=== PATIENT | female | born 1960 | race African-American/Black ===

== ENCOUNTER → 2016-05-12 | Outpatient (CLI) | payer OTHER ==
[2016-05-12 11:20] LABS: Appearance,Urine Clear (Clear); Bilirubin,Urine Negative (Negative); Glucose,Urine (UA) Negative (Negative); Ketones,Urine Negative (Negative); Leukocyte Esterase,Urine Negative (Negative); Nitrite,Urine Negative (Negative); Protein,Urine Negative (Negative); Specific Gravity,Urine 1.019 (1.001-1.035); UA Billing (MACRO vs. MICRO) CHEM; Urobilinogen,Urine <2.0 mg/dL (<2.0)
[2016-05-12 11:29] LABS: Basophils % (A) 1 %; CH 31.6; Eosinophils # (A) 0.1 k/uL (0-0.7); Eosinophils % (A) 1 %; HCT 42.7 % (34.0-46.0); HDW 2.53; Luc # (Auto) 0.05; Luc % (Auto) 1; Lymphocytes # (A) 1.2 k/uL (1.0-4.8); Lymphocytes % (A) 34 %; MCH 31.9 pg (25.0-35.0); MCHC 35.1 g/dL (31.0-37.0); MCV 90.8 fL (80.0-100.0); Mean Platelet Volume 7.6; Monocytes # (A) 0.2 k/uL (0-1.0); Monocytes % (A) 7 %; Neutrophils % (A) 56 %; RDW 12.6 % (11.5-15.5); WBC 3.6 k/uL (3.8-10.6); WBC (Perox) 3.45
[2016-05-12 11:31] LABS: ALT 34 U/L (9-52); AST 26 U/L (14-36); Alkaline Phosphatase 80 U/L (38-126); Anion Gap 12 mmol/L; Blood Urea Nitrogen 17 mg/dL (7-17); Calcium 9.6 mg/dL (8.4-10.2); Carbon Dioxide 26 mmol/L (22-30); Chloride 106 mmol/L (98-107); Creatine Kinase 113 U/L (30-135); Glucose 81 mg/dL (74-99); Non-African American GFR(MDRD) 54 (>60 ml/min/1.73 sqM); Potassium 4.3 mmol/L (3.5-5.1); Sodium 144 mmol/L (137-145); Total Bilirubin 0.5 mg/dL (0.2-1.3); Total Protein 8.2 g/dL (6.3-8.2); Uric Acid 4.8 mg/dL (3.7-7.4)
[2016-05-12 12:00] LABS: Hepatitis B Surface Ag Index 0.07
[2016-05-12 12:22] LABS: Hepatitis C Virus IgG Ab Reactive (Negative)
[2016-05-12 12:36] LABS: C Reactive Protein 5.2 mg/L (<10.0)
[2016-05-12 12:40] LABS: Rheumatoid Factor, Qnt <9 IU/mL (<12)
[2016-05-12 12:45] LABS: Erythrocyte Sedimentation Rate 16 mm/hr (0-20)
[2016-05-12 16:36] LABS: ANA w/Reflex to Titer NEGATIVE (NEGATIVE)
[2016-05-13 05:09] LABS: Cyclic Citrullinated Pep IgG 6 UNITS (<20)
[2016-05-13 07:19] LABS: Aldolase 4.2 U/L (1.2-7.6)
[2016-05-13 11:26] LABS: HLA B27 NEGATIVE; HLA B27 Comment SEEBELOW
[2016-05-15 02:59] LABS: Cardiolipin Ab IgG <9.0 GPL (<15); Cardiolipin Ab IgM 24.8 MPL (<12.5)
[2016-05-15 06:47] LABS: Complement Total (CH50) 131 CAE (54-144)
[2016-05-15 08:24] LABS: Hepatits C Virus RNA, Quant <12 IU/mL (<12); LOG HCV IU/mL <1.08 (<1.08)
[2016-05-15 12:05] LABS: Free Kappa Lt Chain Qnt, Serum 1.73 mg/dL (0.33 - 1.94); Kappa/Lambda Light Chain Ratio 0.78 (0.26 - 1.65)
[2016-05-15 13:42] LABS: Scleroderma 70 Antibody 6 UNITS (<20)
[2016-05-15 14:37] LABS: C-ANCA <1:20 Titer (<1:20); P-ANCA <1:20 Titer (<1:20)
[2016-05-18 10:48] LABS: Mis test requested (Blood) 14-3-3 eta Protein
== END | disposition home or self-care (01) ==
LOC: LABWHC1 10:16
PROVIDERS: ATTEND Internal Medicine Rheumatology
DX: R76.8 Other specified abnormal immunological findings in serum (principal); Z86.19 Personal history of other infectious and parasitic diseases
CPT/HCPCS: 36415; 80053; 81003; 82085; 82164; 82306; 82550; 83520; 83883; 84165; 84439; 84443; 84550; 85025; 85613; 85652; 85730; 86038; 86140; 86147; 86160; 86162; 86200; 86225; 86235; 86255; 86334; 86431; 86803; 86812; 87340; 87522

== ENCOUNTER → 2016-08-15 | Outpatient (CLI) | payer OTHER ==
--- NOTE | 2016-08-15 09:16 | MR ---
EXAMINATION TYPE: MR lumbar spine wo con DATE OF EXAM: 08/15/2016 8:55 AM COMPARISON: NONE HISTORY: meralgia paresthetica rt lower limb TECHNIQUE: T1 and T2 axial and sagittal images of the lumbar spine are submitted. FINDINGS: There is no abnormal signal seen within the visualized spinal cord or paraspinal soft tissu es. Heterogeneous marrow signal nonspecific but most suggestive of osteopenia. Large gallstone suspec michelet. At L1-2 there is minimal left paracentral disc bulging. No canal stenosis or foraminal encroachment. At L2-3 there is mild facet arthropathy but no disc herniation or canal stenosis. No foraminal encroa chment. At L3-4 there is moderate facet arthropathy and ligamentum flavum hypertrophy. No foraminal encroachm ent, disc herniation, or canal stenosis. At L4-5 there is mild degenerative disc disease with mild hypertrophic change of the ligamentum flavu m and moderate hypertrophic change of the left facet. No focal herniation or canal stenosis. Mild nando ateral foraminal encroachment. No nerve root impingement. At L5-S1 there is moderate degenerative disc disease with mild facet arthropathy but no evidence of f ocal herniation, canal stenosis or neural foraminal encroachment. IMPRESSION: 1. Cholelithiasis 2. Multilevel mild degenerative disc disease and multilevel facet arthropathy with no evidence of dis c herniation or canal stenosis. Multilevel mild foraminal encroachment.
== END | disposition home or self-care (01) ==
LOC: RADMRIMAIN 08:01
PROVIDERS: ATTEND Psychiatry & Neurology Neurology
DX: M51.37 Other intervertebral disc degeneration, lumbosacral region (principal); M46.87 Other specified inflammatory spondylopathies, lumbosacral region
CPT/HCPCS: 72148

== ENCOUNTER → 2016-10-11 | Outpatient (CLI) | payer OTHER ==
--- NOTE | 2016-10-13 12:42 | MM ---
Reason for exam: screening (asymptomatic). Last mammogram was performed 1 year and 3 months ago. History: Patient is postmenopausal. Physical Findings: A clinical breast exam by your physician is recommended on an annual basis and results should be correlated with mammographic findings. MG Screening Mammo w CAD Bilateral CC and MLO view(s) were taken. Prior study comparison: July 06, 2015, bilateral MG screening mammo w CAD. The breast tissue is heterogeneously dense. This may lower the sensitivity of mammography. Finding: There is equal, indistinct architectural distortion located 2 cm from the nipple in the 12 o'clock position of the right breast. New finding since July 06, 2015. ASSESSMENT: Incomplete: need additional imaging evaluation, BI-RAD 0 RECOMMENDATION: Special view mammogram of the right breast. If lesion persists on supplemental views, image directed ultrasound is recommended. [facility] will attempt to contact patient to return for supplemental views and ultrasound if indicated.
== END | disposition home or self-care (01) ==
LOC: RADMAMWWP 07:21
PROVIDERS: ATTEND Family Medicine
DX: Z12.31 Encounter for screening mammogram for malignant neoplasm of breast (principal)

== ENCOUNTER → 2016-10-25 | Outpatient (CLI) | payer OTHER ==
--- NOTE | 2016-10-25 15:50 | WWHP ---
CHIEF COMPLAINT: The patient is here for her routine gynecologic exam and mammogram. HPI: This is a 56-year-old, G3, P1-0-2-1 with LMP of 2006. The patient is without gynecologic complaints and denies any postmenopausal bleeding. She did have a screening mammogram on 10/11/16 and special view of the right breast was recommended. PAST MEDICAL HISTORY: Hepatitis C, elevated cholesterol, COPD, and history of drug abuse. She currently goes to [facility] on a regular basis. MEDICATIONS: Zocor 20 mg daily, Trazodone 150 mg daily, calcium 600 mg b.i.d., QVAR inhaler b.i.d., fish oil supplement daily, multivitamin daily. ALLERGIES: No known drug allergies. PAST SURGICAL HISTORY: Laparotomy x2 for ectopic pregnancies in the past. PAST [employer] HISTORY: She has history of trichomonas and gonorrhea at age 19 and also was treated for syphilis in 2014. SOCIAL HISTORY: She quit smoking in 07/30. She also quit drinking alcohol. She has a history of cocaine and IV heroin use, but states she has been clean since attending the [facility] program. 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 She is not seeing anybody at this time and has not been sexually active for 2 years. FAMILY HISTORY: Sister has diabetes and maternal grandmother had diabetes and ovarian cancer. REVIEW OF SYSTEMS: She has gained about 19 pounds over the last year and a half and denies respiratory, cardiac or GI problems. PHYSICAL EXAM: Blood pressure 103/70, height 5 feet 8 inches, weight 182 pounds , temperature 97.6, pulse 76. This is a well developed, well nourished black female who is alert and oriented x3 in no acute distress. HEENT is within normal limits. Neck is supple without masses or thyromegaly. Chest and lungs: Clear to auscultation. Heart: Regular rage and rhythm. Breasts are without mass or discharge. Axillary exam is negative for adenopathy. Back negative for cva tenderness. Abdomen is soft, nontender without palpable masses. Pelvic exam: External genitalia reveals mild atrophy without lesions. Cervix and vaginal reveals mild atrophy without lesions. There is no evidence of prolapse. The uterus is mid-position, nongravid size and nontender. There are no palpable adnexal masses or tenderness. Rectovaginal exam is negative for mass or tenderness. Negative for occult blood. Extremities nontender. IMPRESSION: A 56-year-old menopausal female with normal gynecologic exam. PLAN: 1. PAP Smear was deferred since she had normal one last year. 2. Self breast examination was discussed. 3. Follow up mammogram was done today. 4. Osteoporosis prevention was discussed. 5. I have recommended screening colonoscopy and she states she is planning to do this through Dr. Burch, who has also recommended this be done. 6. She will return in one year. MONTY
== END ==
LOC: WWCWWP 08:21
PROVIDERS: ATTEND Obstetrics & Gynecology
DX: Z01.419 Encounter for gynecological examination (general) (routine) without abnormal findings (principal)

== ENCOUNTER → 2016-10-25 | Outpatient (CLI) | payer OTHER ==
--- NOTE | 2016-10-25 08:22 | MM ---
Reason for exam: additional evaluation requested from abnormal screening. Last mammogram was performed less than 1 month ago. History: Patient is postmenopausal. Physical Findings: Nurse did not find any significant physical abnormalities on exam. MG Work Up Mamm w CAD RT LM, spot compression CC, and spot compression MLO view(s) were taken of the right breast. Prior study comparison: October 11, 2016, bilateral MG screening mammo w CAD. July 06, 2015, bilateral MG screening mammo w CAD. The breast tissue is heterogeneously dense. This may lower the sensitivity of mammography. The area of asymmetric density does not persist compatible with summation shadow. These results were verbally communicated with the patient and result sheet given to the patient on 10/25/16. ASSESSMENT: Negative, BI-RAD 1 RECOMMENDATION: Return to routine screening mammogram schedule for both breasts.
== END | disposition home or self-care (01) ==
LOC: RADMAMWWP 07:20
PROVIDERS: ATTEND Family Medicine
DX: R92.8 Other abnormal and inconclusive findings on diagnostic imaging of breast (principal)

== ENCOUNTER 2016-12-11 08:17 | Day surgery (SDC) | payer OTHER ==
[2016-12-07 08:06] VITALS: BMI 27.6
[~2016-12-11 08:17] MED LIST: LACTATED RINGERS 1,000 ML IV SCH; LIDOCAINE 1% 20 ML VIAL (10MG/ML) FOR IV START INTRADERMA PRN
[2016-12-11] MEDS ORDERED: LIDOCAINE 1% INJ 10MG/ML (20 ML MDV) ONE (10:13)
[2016-12-11] MEDS ORDERED: GLYCOPYRROLATE 0.2 MG/ML 2 ML VIAL ONE (10:13)
[2016-12-11] MEDS ORDERED: PROPOFOL 10 MG/ML 20 ML VIAL IV ONE (10:13)
[2016-12-11 10:33] VITALS: RESP 16
--- NOTE | 2016-12-11 10:33 | P.PCN ---
Date of Procedure: 12/11/16 Preoperative Diagnosis: Postoperative Diagnosis: Procedure(s) Performed: Procedure: Total colonoscopy. Preoperative diagnosis: Screening for neoplasia. Postoperative diagnosis: Exam within normal limits. Preparation: HalfLytely prep. Sedation: Was provided by anesthesia. Brief clinical history: The patient is a 56-year-old female who is referred for this evaluation for screening for neoplasia age being her risk factor. There is no family history of colon cancer. The patient has no abdominal complaints bleeding or anemia. Procedure: With the patient on her left lateral decubitus position and after informed consent and adequate sedation, the perianal area was inspected and it did not show any fissures or fistulas. There were no masses felt on digital rectal examination. The Olympus CFQ 160L video colonoscope was then inserted in the rectum in the usual fashion and advanced to the cecum. The preparation was good. The mucosa appeared healthy. No polyps or tumors were seen or any obvious diverticular disease or other pathology. I retroflexed the endoscope in the rectum before the endoscope was withdrawn. The patient tolerated the procedure well. Plan: The patient was reassured. She will follow-up with you as planned. In the absence of family history of colon cancer or finding of polyps today, I recommended repeat exam in 10 years. Implants: Indications for Procedure: Operative Findings: Description of Procedure:
[2016-12-11 11:04] VITALS: BP 122/80; PULSE 68
== END 2016-12-11 11:35 | disposition home or self-care (01) ==
LOC: ORWHC2ENDO 08:17
DX: Z12.11 Encounter for screening for malignant neoplasm of colon (principal); J44.9 Chronic obstructive pulmonary disease, unspecified; E78.5 Hyperlipidemia, unspecified; B19.20 Unspecified viral hepatitis C without hepatic coma; Z79.51 Long term (current) use of inhaled steroids; Z79.899 Other long term (current) drug therapy
CPT/HCPCS: J2001; J2704; G0121

== ENCOUNTER → 2017-01-18 | Outpatient (CLI) | payer OTHER ==
--- NOTE | 2017-01-24 14:14 | P.ARTDOP ---
Arterial Doppler LOWER EXTREMITY ARTERIAL DOPPLER: DATE OF SERVICE: 01/18/2017 Reason for study: Leg pain with paresthesias. Doppler waveforms: Multiphasic bilaterally throughout. Pulse volume recording: Normal configuration. Pressure gradients: None. Ankle-brachial indices: Greater than 1 on the right and one on the left. Toe pressures: 69 on the right, 100 on the left Impression: Normal study.
== END | disposition home or self-care (01) ==
LOC: RADUSWWP 07:43
PROVIDERS: ATTEND Family Medicine
DX: I83.93 Asymptomatic varicose veins of bilateral lower extremities (principal)
CPT/HCPCS: 93923

== ENCOUNTER → 2017-05-01 | Outpatient (CLI) | payer OTHER ==
[2017-05-01 09:06] LABS: ALT 30 U/L (9-52); AST 26 U/L (14-36)
== END | disposition home or self-care (01) ==
LOC: LABWHC1 07:52
PROVIDERS: ATTEND Podiatrist Foot & Ankle Surgery
DX: K76.9 Liver disease, unspecified (principal)
CPT/HCPCS: 36415; 84450; 84460

== ENCOUNTER → 2017-06-20 | Outpatient (CLI) | payer OTHER ==
[2017-06-20 11:04] LABS: ALT 24 U/L (9-52); AST 26 U/L (14-36)
== END | disposition home or self-care (01) ==
LOC: LABWHC1 09:33
PROVIDERS: ATTEND Podiatrist Foot & Ankle Surgery
DX: K76.9 Liver disease, unspecified (principal)
CPT/HCPCS: 36415; 84450; 84460

== ENCOUNTER 2017-09-03 16:27 | Emergency (ER) | payer OTHER ==
[2017-09-03] MEDS ORDERED: IPRATROPIUM-ALBUTEROL 3 ML NEB INHALATION STA (19:23)
--- NOTE | 2017-09-03 19:36 | ED ---
Chest Pain HPI - General Chief Complaint: Chest Pain Stated Complaint: Chest Pain/Congestion Time Seen by Provider: 09/03/17 18:51 Source: patient, RN notes reviewed Mode of arrival: ambulatory Limitations: no limitations - History of Present Illness Initial Comments: This is a 57-year-old female history of COPD who presents with complaints of cough with yellow phlegm and 2 days of chest tightness is worse today with increasing pain. States the pain is 7/10 he does increase with coughing she has some shortness of breath no fevers chills or sweats he quit smoking 20 years ago. Doesn't complain originally have leg pain it gets worse in the morning she's had for quite a while is in the process of being worked up. He voices no other complaints at this time. No prior history of heart disease other is a family history. MD Complaint: chest pain, other - Related Data Home Medications Medication Instructions Recorded Confirmed Albuterol Inhaler [Ventolin Hfa 1 - 2 puff INHALATION RT-Q4H PRN 12/07/16 Inhaler] Ascorbic Acid [Vitamin C] 500 mg PO DAILY 12/07/16 09/03/17 Beclomethasone Dipropionate [Qvar 2 puff INHALATION RT-BID 12/07/16 09/03/17 40 mcg] Calcium Carbonate [Calcium] 600 mg PO DAILY 12/07/16 09/03/17 Multivitamins, Thera [Multivitamin 1 tab PO DAILY 12/07/16 09/03/17 (formulary)] Simvastatin [Zocor] 20 mg PO HS 12/07/16 09/03/17 traZODone HCL 200 mg PO HS 12/07/16 09/03/17 [place]-3 Fatty Acids/Fish Oil [Fish 1 cap PO DAILY 09/03/17 09/03/17 Oil 1,000 mg Softgel] Tolterodine Tartrate [Detrol LA] 4 mg PO DAILY 09/03/17 09/03/17 Previous Rx's Medication Instructions Recorded Amoxicillin/Potassium Clav 1 tab PO Q12HR #20 tab 09/03/17 [Augmentin 875-125 Tablet] Ibuprofen 800 mg PO Q6HR PRN #20 tablet 09/03/17 predniSONE 20 mg PO BID #10 tab 09/03/17 Allergies Allergy/AdvReac Type Severity Reaction Status Date / Time No Known Allergies Allergy Verified 09/03/17 19:25 Review of Systems ROS Statement: Those systems with pertinent positive or pertinent negative responses have been documented in the HPI. ROS Other: All systems not noted in ROS Statement are negative. EKG Findings - EKG Results: EKG: interpreted by LATHA, sinus rhythm (Sinus rhythm rate is 65. Interval 186 QRS duration 80 QT since QTC is 396/411 nonspecific T-wave configuration) Past Medical History Past Medical History: COPD, Hyperlipidemia Additional Past Medical History / Comment(s): HEPATITIS C., insomnia, History of Any Multi-Drug Resistant Organisms: None Reported Past Surgical History: Tubal Ligation Additional Past Surgical History / Comment(s): surgery for ectopic Past Anesthesia/Blood Transfusion Reactions: No Reported Reaction Past Psychological History: No Psychological Hx Reported Smoking Status: Former smoker Past Alcohol Use History: None Reported Past Drug Use History: None Reported - Past Family History Mother Family Medical History: No Reported History General Exam - General Exam Comments Initial Comments: This is a well-developed well-nourished awake alert oriented 3 female Limitations: no limitations General appearance: alert, in no apparent distress Head exam: Present: atraumatic, normocephalic, normal inspection Eye exam: Present: normal appearance, PERRL, EOMI. Absent: scleral icterus, conjunctival injection, periorbital swelling ENT exam: Present: mucous membranes dry Neck exam: Present: normal inspection. Absent: tenderness, meningismus, lymphadenopathy Respiratory exam: Present: wheezes, chest wall tenderness (Reproducible tenderness palpation along the costal chondral margin.), decreased breath sounds. Absent: respiratory distress, rales, rhonchi, stridor Cardiovascular Exam: Present: regular rate, normal rhythm, normal heart sounds. Absent: systolic murmur, diastolic murmur, rubs, gallop, clicks GI/Abdominal exam: Present: soft, normal bowel sounds. Absent: distended, tenderness, guarding, rebound, rigid Extremities exam: Present: normal inspection, full ROM, normal capillary refill. Absent: tenderness, pedal edema, joint swelling, calf tenderness Back exam: Present: normal inspection Neurological exam: Present: alert, oriented X3, CN II-XII intact Psychiatric exam: Present: normal affect, normal mood Skin exam: Present: warm, dry, intact, normal color. Absent: rash Course Vital Signs 09/03/17 09/03/1709/03/18 17:18 19:45 20:42 Temperature 97.7 F Pulse Rate 82 61 57 L Respiratory 18 16 Rate Blood Pressure 128/81 113/70 O2 Sat by Pulse 95 95 Oximetry 09/03/17 20:58 Temperature Pulse Rate 58 L Respiratory Rate Blood Pressure O2 Sat by Pulse Oximetry Chest Pain MDM - MDM I did review the imaging and report no definite acute findings the patient is feeling improved after the treatment that was rendered she'll be placed on steroids and antibiotics she is follow-up with her doctor and return when necessary Disposition Clinical Impression: COPD with exacerbation, Bronchitis, Costalchondritis Disposition: ADMITTED IP TO THIS [facility] Condition: Good Instructions: Costochondritis (ED), COPD (Chronic Obstructive Pulmonary Disease ) (ED), Acute Bronchitis (ED) Prescriptions: Amoxicillin/Potassium Clav [Augmentin 875-125 Tablet] 1 tab PO Q12HR #20 tab Ibuprofen 800 mg PO Q6HR PRN #20 tablet PRN Reason: Pain predniSONE 20 mg PO BID #10 tab Is patient prescribed a controlled substance at d/c from ED?: No Referrals: Bela Burch MD [Primary Care Provider] - 1-2 days
[2017-09-03 19:55] LABS: Basophils % (A) 1 %; Eosinophils # (A) 0.1 k/uL (0-0.7); Eosinophils % (A) 3 %; HCT 39.9 % (34.0-46.0); HGB 13.9 gm/dL (11.4-16.0); Lymphocytes # (A) 1.7 k/uL (1.0-4.8); Lymphocytes % (A) 40 %; MCV 88.5 fL (80.0-100.0); Mean Platelet Volume 6.5; Monocytes # (A) 0.2 k/uL (0-1.0); Monocytes % (A) 5 %; Neutrophils # (A) 2.1 k/uL (1.3-7.7); Neutrophils % (A) 50 %; Platelet Count 209 k/uL (150-450); RDW 12.7 % (11.5-15.5); WBC 4.3 k/uL (3.8-10.6)
[2017-09-03 20:13] LABS: Albumin 3.9 g/dL (3.5-5.0); Calcium 9.2 mg/dL (8.4-10.2); Potassium 4.1 mmol/L (3.5-5.1); Total Bilirubin 0.2 mg/dL (0.2-1.3)
[2017-09-03 20:16] LABS: Creatine Kinase 111 U/L (30-135)
--- NOTE | 2017-09-03 20:19 | XR ---
EXAMINATION TYPE: XR chest 2V DATE OF EXAM: 09/03/2017 COMPARISON: 12/19/2014 HISTORY: Cough TECHNIQUE: Frontal and lateral views of the chest are obtained. FINDINGS: Heart and mediastinum are normal. Lungs are clear. Diaphragm is normal. There are chest le ads. Bony thorax is intact. IMPRESSION: Normal chest. There is clearing of the mild interstitial infiltrate in the left lower lo be compared to old exam.
[2017-09-03 20:29] LABS: Creatine Kinase MB 1.5 ng/mL (0.0-2.4); Troponin I <0.012 ng/mL (0.000-0.034)
[2017-09-03] MEDS ORDERED: KETOROLAC 30 MG/ML 1 ML VIAL IVP STA (20:37)
[2017-09-03] MEDS ORDERED: methylPREDNISolone SOD SUCCI 125 MG/2 ML VIAL IV STA (21:19)
[2017-09-03] MEDS ORDERED: cefTRIAXone IN SWFI 1,000 MG/10 ML SYRINGE IVP STA (21:19)
[2017-09-03 21:24] VITALS: BP 124/76
--- NOTE | 2017-09-03 21:32 | ED ---
Medical Decision Making - Lab Data Result diagrams: 09/03/17 19:41 09/03/17 19:41 Lab Results 09/03/17 09/03/17 09/03/17 Range/Units 19:41 19:41 19:41 WBC 4.3 (3.8-10.6) k/uL RBC 4.50 (3.80-5.40) m/uL Hgb 13.9 (11.4-16.0) gm/dL Hct 39.9 (34.0-46.0) % MCV 88.5 (80.0-100.0) fL MCH 31.0 (25.0-35.0) pg MCHC 35.0 (31.0-37.0) g/dL RDW 12.7 (11.5-15.5) % Plt Count 209 (150-450) k/uL Neutrophils % 50 % Lymphocytes % 40 % Monocytes % 5 % Eosinophils % 3 % Basophils % 1 % Neutrophils # 2.1 (1.3-7.7) k/uL Lymphocytes # 1.7 (1.0-4.8) k/uL Monocytes # 0.2 (0-1.0) k/uL Eosinophils # 0.1 (0-0.7) k/uL Basophils # 0.0 (0-0.2) k/uL Sodium 142 (137-145) mmol/L Potassium 4.1 (3.5-5.1) mmol/L Chloride 106 (98-107) mmol/L Carbon Dioxide 23 (22-30) mmol/L Anion Gap 13 mmol/L BUN 22 H (7-17) mg/dL Creatinine 0.90 (0.52-1.04) mg/dL Est GFR (CKD-EPI)AfAm 83 (>60 ml/min/1.73 sqM) Est GFR (CKD-EPI)NonAf 72 (>60 ml/min/1.73 sqM) Glucose 85 (74-99) mg/dL Calcium 9.2 (8.4-10.2) mg/dL Magnesium (1.6-2.3) mg/dL Total Bilirubin 0.2 (0.2-1.3) mg/dL AST 25 (14-36) U/L ALT 27 (9-52) U/L Alkaline Phosphatase 69 (38-126) U/L Total Creatine Kinase 111 (30-135) U/L CK-MB (CK-2) 1.5 (0.0-2.4) ng/mL CK-MB (CK-2) Rel Index 1.4 Troponin I <0.012 (0.000-0.034) ng/mL Total Protein 7.0 (6.3-8.2) g/dL Albumin 3.9 (3.5-5.0) g/dL 09/03/17 Range/Units 19:41 WBC (3.8-10.6) k/uL RBC (3.80-5.40) m/uL Hgb (11.4-16.0) gm/dL Hct (34.0-46.0) % MCV (80.0-100.0) fL MCH (25.0-35.0) pg MCHC (31.0-37.0) g/dL RDW (11.5-15.5) % Plt Count (150-450) k/uL Neutrophils % % Lymphocytes % % Monocytes % % Eosinophils % % Basophils % % Neutrophils # (1.3-7.7) k/uL Lymphocytes # (1.0-4.8) k/uL Monocytes # (0-1.0) k/uL Eosinophils # (0-0.7) k/uL Basophils # (0-0.2) k/uL Sodium (137-145) mmol/L Potassium (3.5-5.1) mmol/L Chloride (98-107) mmol/L Carbon Dioxide (22-30) mmol/L Anion Gap mmol/L BUN (7-17) mg/dL Creatinine (0.52-1.04) mg/dL Est GFR (CKD-EPI)AfAm (>60 ml/min/1.73 sqM) Est GFR (CKD-EPI)NonAf (>60 ml/min/1.73 sqM) Glucose (74-99) mg/dL Calcium (8.4-10.2) mg/dL Magnesium 1.7 (1.6-2.3) mg/dL Total Bilirubin (0.2-1.3) mg/dL AST (14-36) U/L ALT (9-52) U/L Alkaline Phosphatase (38-126) U/L Total Creatine Kinase (30-135) U/L CK-MB (CK-2) (0.0-2.4) ng/mL CK-MB (CK-2) Rel Index Troponin I (0.000-0.034) ng/mL Total Protein (6.3-8.2) g/dL Albumin (3.5-5.0) g/dL Disposition Clinical Impression: COPD with exacerbation, Bronchitis, Costalchondritis Disposition: ADMITTED IP TO THIS HOSP Condition: Good Instructions: Costochondritis (ED), Acute Bronchitis (ED), COPD (Chronic Obstructive Pulmonary Disease) (ED) Prescriptions: Amoxicillin/Potassium Clav [Augmentin 875-125 Tablet] 1 tab PO Q12HR #20 tab Ibuprofen 800 mg PO Q6HR PRN #20 tablet PRN Reason: Pain predniSONE 20 mg PO BID #10 tab Is patient prescribed a controlled substance at d/c from ED?: No Referrals: Bela Burch MD [Primary Care Provider] - 1-2 days
[2017-09-03 21:47] VITALS: PULSE 84; RESP 16
[2017-09-03 21:50] VITALS: TEMP 98.4
== END 2017-09-03 21:56 | disposition other institution (70) ==
LOC: EC 16:27
DX: J44.1 Chronic obstructive pulmonary disease with (acute) exacerbation (principal); M94.0 Chondrocostal junction syndrome [Tietze]; E78.5 Hyperlipidemia, unspecified; Z86.19 Personal history of other infectious and parasitic diseases; Z87.891 Personal history of nicotine dependence; Z79.51 Long term (current) use of inhaled steroids; Z79.899 Other long term (current) drug therapy
CPT/HCPCS: 36415; 94640; 93005; 80053; 82550; 82553; 83735; 84484; 85025; 71046; 99285; 96374; 96375 ×2; J2930; J0696; J1885

== ENCOUNTER → 2017-10-25 | Outpatient (CLI) | payer OTHER | LOC: LABMAIN 17:50 | PROVIDERS: ATTEND Family Medicine | DX: Z53.9 Procedure and treatment not carried out, unspecified reason (principal) ==

== ENCOUNTER → 2017-10-25 | Outpatient (CLI) | payer OTHER ==
[2017-10-25 19:39] LABS: ALT 25 U/L (9-52); AST 27 U/L (14-36); Albumin 4.2 g/dL (3.5-5.0); Alkaline Phosphatase 74 U/L (38-126); Anion Gap 8 mmol/L; Blood Urea Nitrogen 17 mg/dL (7-17); C Reactive Protein <5.0 mg/L (<10.0); Calcium 9.6 mg/dL (8.4-10.2); Carbon Dioxide 22 mmol/L (22-30); Chloride 107 mmol/L (98-107); Cholesterol 252 mg/dL (<200); Creatine Kinase 151 U/L (30-135); Glucose 103 mg/dL (74-99); HDL Cholesterol 52 mg/dL (40-60); LDL Cholesterol,Calculated 183 mg/dL (0-99); Potassium 4.3 mmol/L (3.5-5.1); Sodium 137 mmol/L (137-145); Total Bilirubin 0.4 mg/dL (0.2-1.3); Total Protein 7.5 g/dL (6.3-8.2); Triglycerides 86 mg/dL (<150); Uric Acid 3.6 mg/dL (3.7-7.4)
[2017-10-25 19:52] LABS: T4, Free (Free Thyroxine) 1.12 ng/dL (0.78-2.19)
[2017-10-25 22:04] LABS: Erythrocyte Sedimentation Rate 11 mm/hr (0-20)
[2017-10-25 22:42] LABS: Basophils % (A) 0 %; Eosinophils % (A) 1 %; HCT 41.3 % (34.0-46.0); Lymphocytes # (A) 0.9 k/uL (1.0-4.8); Lymphocytes % (A) 18 %; MCH 31.2 pg (25.0-35.0); MCV 91.6 fL (80.0-100.0); Mean Platelet Volume 8.4; Monocytes # (A) 0.2 k/uL (0-1.0); Monocytes % (A) 5 %; Neutrophils # (A) 3.5 k/uL (1.3-7.7); Neutrophils % (A) 75 %; Platelet Count 178 k/uL (150-450); RDW 13.1 % (11.5-15.5); WBC 4.7 k/uL (3.8-10.6)
[2017-10-26 01:04] LABS: Protein, Total 7.2 g/dL (6.2-8.2)
[2017-10-26 01:10] LABS: Vitamin D 25 Hydroxy 32.8 ng/mL (30.0-100.0)
[2017-10-26 01:42] LABS: Cardiolipin Ab IgG Interp NEGATIVE (NEGATIVE); Cardiolipin Ab IgM Interp NEGATIVE (NEGATIVE); Cardiolipin IgA Antibody 1.4 U/mL; Cardiolipin IgM Antibody 0.9 U/mL; Centromere Antibody Interp NEGATIVE (NEGATIVE); Cyclic Citrullinated Pep IgG NEGATIVE (NEGATIVE); DNA Double-Stranded NEGATIVE (NEGATIVE); RNP <0.2 AI; Scleroderma SC-70 Ab 0.2 AI
[2017-10-26 02:13] LABS: Rheumatoid Factor 9 IU/mL (0-15)
[2017-10-26 04:15] LABS: Hepatitis C IgG Antibody Reactive (Non-Reactive)
[2017-10-27 06:32] LABS: Angiotensin-1 Converting Enz. 46 U/L (8-52)
[2017-10-27 11:59] LABS: HLA B27 NEGATIVE
== END | disposition home or self-care (01) ==
LOC: LABMAIN 17:56
PROVIDERS: ATTEND Internal Medicine Rheumatology
DX: R76.8 Other specified abnormal immunological findings in serum (principal)
CPT/HCPCS: 36415; 80053; 80061; 82085; 82164; 82306; 82550; 83883; 84165; 84439; 84443; 84550; 85025; 85613; 85652; 85730; 86038; 86140; 86147; 86160; 86162; 86200; 86225; 86235; 86255; 86334; 86431; 86706; 86803; 86812

== ENCOUNTER → 2017-10-30 | Outpatient (CLI) | payer OTHER ==
[2017-10-30 10:11] LABS: Appearance,Urine Clear (Clear); Bacteria,Urine Occasional /hpf; Bilirubin,Urine Negative (Negative); Blood,Urine Negative (Negative); Color,Urine Yellow; Glucose,Urine (UA) Negative (Negative); Ketones,Urine Negative (Negative); Leukocyte Esterase,Urine Small (Negative); Mucus,Urine Rare /hpf; Nitrite,Urine Negative (Negative); PH, Urine 6.5 (5.0-8.0); Protein,Urine Negative (Negative); Specific Gravity,Urine 1.009 (1.001-1.035); Squamous Epithelial Cell,Urine <1 /hpf (0-4); Urobilinogen,Urine <2.0 mg/dL (<2.0); WBC,Urine 2 /hpf (0-5)
== END | disposition home or self-care (01) ==
LOC: LABWHC1 09:12
PROVIDERS: ATTEND Internal Medicine Rheumatology
DX: R76.8 Other specified abnormal immunological findings in serum (principal)
CPT/HCPCS: 81001

== ENCOUNTER → 2017-10-31 | Outpatient (CLI) | payer OTHER ==
[2017-10-31 08:10] VITALS: BP 99/73; PULSE 75; TEMP 97; BMI 28.3
--- NOTE | 2017-10-31 08:55 | P.HPOB ---
History of Present Illness H&P Date: 10/31/17 Chief Complaint: The patient is here for her routine gynecologic exam and mammogram. This is a 57-year-old with an LMP of 2005. The patient is without gynecologic complaints and denies any postmenopausal bleeding. She denies any sexual activity for the last 3 years and is not seen anybody at this time. Review of Systems She has gained 4 pounds over the last year. She denies respiratory, cardiac, or G.I. problems. Past Medical History Past Medical History: COPD, Hyperlipidemia Additional Past Medical History / Comment(s): HEPATITIS C in the past. History of drug abuse s/p rehab. History of Any Multi-Drug Resistant Organisms: None Reported Past Surgical History: Tubal Ligation Additional Past Surgical History / Comment(s): surgery for ectopic pregnancyx2. Colonoscopy 2017. Past Anesthesia/Blood Transfusion Reactions: No Reported Reaction Past Psychological History: No Psychological Hx Reported Smoking Status: Former smoker (Quit 2015) Past Alcohol Use History: None Reported Additional Past Alcohol Use History / Comment(s): quit smoking 2015, smoked for 40 yrs Past Drug Use History: Cocaine, Heroin, IV Drug Use Additional Drug Use History / Comment(s): none since 2015. Additional History: She is single does not seem anybody at this time. She works at [employer]. - Past Family History Mother Family Medical History: No Reported History Additional Family Medical History / Comment(s): Maternal grandmother had ovarian cancer. Sister(s) Family Medical History: Diabetes Mellitus Medications and Allergies Home Medications Medication Instructions Recorded Confirmed Type Ascorbic Acid [Vitamin C] 500 mg PO DAILY 12/07/16 10/31/17 History Beclomethasone Dipropionate [Qvar 2 puff INHALATION RT-BID 12/07/16 10/31/17 History 40 mcg] Multivitamins, Thera [Multivitamin 1 tab PO DAILY 12/07/16 10/31/17 History (formulary)] traZODone HCL 200 mg PO HS 12/07/16 10/31/17 History [place]-3 Fatty Acids/Fish Oil [Fish 1 cap PO DAILY 09/03/17 10/31/17 History Oil 1,000 mg Softgel] Allergies Allergy/AdvReac Type Severity Reaction Status Date / Time No Known Allergies Allergy Verified 10/31/17 08:06 Exam Vital Signs Temp Pulse BP 10/31/17 08:06 97.0 F L 75 99/73 Intake and Output 10/30/17 10/31/17 10/31/17 22:59 06:59 14:59 Other: Weight 84.368 kg Height 5'8", BMI 28.3. This is a well-developed well-nourished black female who is alert and oriented times 3 in no acute distress. HEENT: Within normal limits. NECK: Supple without mass or thyromegaly. CHEST AND LUNGS: Clear to auscultation. HEART: Regular rate and rhythm. BREASTS: Are without mass or discharge. AXILLARY EXAM: Negative for adenopathy. BACK: Negative for CVA tenderness. ABDOMEN: Soft, nontender, without palpable masses. PELVIC EXAM: Normal external genitalia with minimal atrophy. Cervix and vagina appear normal with mild atrophy. There is no unusual discharge. There is no evidence of prolapse. The uterus is midposition, nongravid size and nontender. There are no palpable adnexal masses or tenderness. RECTAL EXAM: rectovaginal exam is negative for mass or tenderness and is negative for occult blood. EXTREMITIES: Nontender. IMPRESSION: 1. 57-year-old menopausal female with normal gynecologic exam. 2. History of substance abuse. No tobacco, alcohol or drug use since 2016. PLAN: 1. Pap smear was performed. 2. Self breast awareness was discussed. 3. Screening mammogram will be done today. 4. Osteoporosis prevention was discussed. 5. The patient assures me that follow-up testing after being treated for syphilis in 2014 has been completed. 6. She will return in one year.
--- NOTE | 2017-11-02 10:41 | MM ---
Reason for exam: screening (asymptomatic). Last mammogram was performed 1 year ago. History: Patient is postmenopausal. Physical Findings: A clinical breast exam by your physician is recommended on an annual basis and results should be correlated with mammographic findings. MG Screening Mammo w CAD Bilateral CC and MLO view(s) were taken. Prior study comparison: October 25, 2016, right breast MG work up mamm w CAD RT. October 11, 2016, bilateral MG screening mammo w CAD. There are scattered fibroglandular densities. No significant changes when compared with prior studies. ASSESSMENT: Negative, BI-RAD 1 RECOMMENDATION: Routine screening mammogram of both breasts in 1 year.
== END | disposition home or self-care (01) ==
LOC: WWCWWP 07:53
PROVIDERS: ATTEND Obstetrics & Gynecology
DX: Z12.31 Encounter for screening mammogram for malignant neoplasm of breast (principal)
CPT/HCPCS: 77067

== ENCOUNTER → 2018-01-28 | Outpatient (CLI) | payer OTHER ==
[2018-01-28 17:32] LABS: Albumin 3.8 g/dL (3.5-5.0); Bilirubin, Delta 0.3 mg/dL (0.0-0.2); Total Bilirubin 0.3 mg/dL (0.2-1.3); Total Protein 7.1 g/dL (6.3-8.2)
== END | disposition home or self-care (01) ==
LOC: LABWHC1 16:20
PROVIDERS: ATTEND Family Medicine
DX: E78.2 Mixed hyperlipidemia (principal)
CPT/HCPCS: 36415; 80061; 80076

== ENCOUNTER → 2018-07-16 | Outpatient (CLI) | payer OTHER ==
--- NOTE | 2018-07-16 09:23 | CT ---
EXAMINATION TYPE: CT chest wo con DATE OF EXAM: 07/16/2018 COMPARISON: 08/05/2015 HISTORY: 58-year-old female Shortness of breath. History of COPD TECHNIQUE: Contiguous axial scanning of the chest without IV contrast. Coronal and sagittal reconstru ctions performed. CT DLP: 380 mGycm Automated exposure control for dose reduction was used. FINDINGS: Heart normal size with small anterior pericardial effusion measuring 1 cm thick. Minimal coronary ves álvaro calcifications are noted. Aorta normal caliber with mild atherosclerotic arch calcifications in conventional arch vessel branch ing anatomy. No thoracic lymphadenopathy by CT size criteria. Stable chronic volume loss along the medial right middle lobe and strandy scarring inferior lingula. Mild diffuse bronchial wall thickening with moderate to advanced upper lung emphysema. Hyperinflation . No consolidation or pleural effusion. Visualized upper abdomen shows prominent ingested really within the stomach and a 1.8 cm gallstone. Bones: Degenerative changes at the right shoulder. Mild degenerative disc disease throughout the thor acic spine. IMPRESSION: 1. SMALL, 1 CM THICK, ANTERIOR PERICARDIAL EFFUSION. 2. COPD WITH MODERATE TO ADVANCED UPPER LUNG EMPHYSEMA. 3. NO ACUTE PULMONARY PROCESS SEEN. THERE ARE STRANDY AREAS OF ATELECTASIS AND SCARRING AT THE LOWER LUNGS. 4. 1.8 CM GALLSTONE.
== END | disposition home or self-care (01) ==
LOC: RADCTMAIN 07:52
PROVIDERS: ATTEND Family Medicine
DX: J43.9 Emphysema, unspecified (principal); I31.3 Pericardial effusion (noninflammatory); J98.11 Atelectasis; J98.4 Other disorders of lung
CPT/HCPCS: 71250

== ENCOUNTER → 2018-07-17 | Outpatient (CLI) | payer OTHER ==
[2018-07-17 10:43] LABS: Basophils % (A) 1 %; Eosinophils # (A) 0.1 k/uL (0-0.7); Eosinophils % (A) 2 %; HCT 44.9 % (34.0-46.0); HGB 14.5 gm/dL (11.4-16.0); Lymphocytes # (A) 1.2 k/uL (1.0-4.8); Lymphocytes % (A) 40 %; MCH 29.3 pg (25.0-35.0); MCHC 32.3 g/dL (31.0-37.0); MCV 90.6 fL (80.0-100.0); Mean Platelet Volume 6.8; Monocytes # (A) 0.2 k/uL (0-1.0); Monocytes % (A) 8 %; Neutrophils # (A) 1.5 k/uL (1.3-7.7); Neutrophils % (A) 48 %; Platelet Count 266 k/uL (150-450); RBC 4.96 m/uL (3.80-5.40); RDW 12.9 % (11.5-15.5); WBC 3.1 k/uL (3.8-10.6)
[2018-07-17 18:30] LABS: ALT 27 U/L (8-44); AST 31 U/L (13-35); Albumin/Globulin Ratio 1.72 (1.60-3.17); Alkaline Phosphatase 51 U/L (41-126); Calcium 9.7 mg/dL (8.7-10.3); Chloride 104 mmol/L (96-109); Cholesterol 174 mg/dL (0-200); Globulin 2.5 g/dL (1.6-3.3); Glucose 88 mg/dL (70-110); Potassium 4.5 mmol/L (3.5-5.5); Sodium 139 mmol/L (135-145); Total Bilirubin 0.6 mg/dL (0.2-1.2); Total Protein 6.8 g/dL (6.2-8.2); Triglycerides <50.0 mg/dL (0.0-149.0); Uric Acid 3.6 mg/dL (2.9-7.7); VLDL Calculation 9.98 mg/dL (5.00-40.00)
== END | disposition home or self-care (01) ==
LOC: LABWHC1 09:14
PROVIDERS: ATTEND Family Medicine
DX: E78.2 Mixed hyperlipidemia (principal); R06.02 Shortness of breath; Z87.09 Personal history of other diseases of the respiratory system
CPT/HCPCS: 36415; 80053; 80061; 82306; 84443; 84550; 85025

== ENCOUNTER → 2018-11-28 | Outpatient (CLI) | payer OTHER ==
--- NOTE | 2018-11-28 08:17 | US ---
EXAMINATION TYPE: US pelvic complete DATE OF EXAM: 11/28/2018 COMPARISON: NONE CLINICAL HISTORY: R14.0 Bloating. TECHNIQUE: Transabdominal (TA). Date of LMP: Patients LMP was when she was 45 EXAM MEASUREMENTS: Uterus: 4.9 x 1.7 x 2.7 cm Endometrial Stripe: 0.2 cm Right Ovary: 1.5 x 0.9 x 1.3 cm Left Ovary: 1.6 x 1.0 x 1.4 cm 1. Uterus: Anteverted wnl 2. Endometrium: wnl 3. Right Ovary: wnl 4. Left Ovary: wnl 5. Bilateral Adnexa: wnl 6. Posterior cul-de-sac: wnl IMPRESSION: No endometrial thickening in this patient with chronic postmenopausal bleeding. Endometri um is noted to be 0.2 cm an endometrial atrophy could be considered as a cause.
--- NOTE | 2018-11-28 08:31 | US ---
EXAMINATION TYPE: US abdomen complete DATE OF EXAM: 11/28/2018 COMPARISON: 07/06/2015 CLINICAL HISTORY: R14.0 Bloating. EXAM MEASUREMENTS: Liver Length: 13.2 cm Gallbladder Wall: 0.4 cm CBD: 0.4 cm Spleen: 9.4 cm Right Kidney: 9.8 x 4.0 x 5.2 cm Left Kidney: 10.3 x 5.2 x 4.5 cm Extensive midline bowel gas. Pancreas: Partially obscured Liver: wnl Gallbladder: fundal stone, wall slightly thickened Evidence for sonographic Funes's sign: No CBD: wnl Spleen: wnl Right Kidney: No hydronephrosis or masses seen, inferior pole obscured by bowel gas Left Kidney: No hydronephrosis or masses seen, inferior pole obscured by bowel gas Upper IVC: wnl Abd Aorta: partially obscured by overlying bowel gas, portions visualized wnl The liver is homogenous. The intrahepatic portion of the IVC and proximal abdominal aorta are within normal limits. Common bile duct is unremarkable. The visualized portions of the pancreas are homoge nous. The spleen is unremarkable. Kidneys are symmetric and free of hydronephrosis. No renal lesio ns are seen. IMPRESSION: 1. Redemonstration of the patient's known cholelithiasis. There is very slight fundal gallbladder wal l thickening that could relate to chronic cholecystitis or biliary dysfunction. No other current evid ence of acute cholecystitis. 2. Exam is limited by extensive midline bowel gas and there is partial obscuration of the pancreas, l ower pole of the kidneys and aorta.
== END | disposition home or self-care (01) ==
LOC: RADUSWWP 07:08
PROVIDERS: ATTEND Family Medicine
DX: K80.20 Calculus of gallbladder without cholecystitis without obstruction (principal); R14.0 Abdominal distension (gaseous)
CPT/HCPCS: 76700; 76856

== ENCOUNTER → 2018-12-09 | Outpatient (CLI) | payer OTHER ==
--- NOTE | 2018-12-09 11:57 | NM ---
EXAMINATION TYPE: NM hepatobiliary w EF DATE OF EXAM: 12/09/2018 COMPARISON: Ultrasound dated 11/28/2018 HISTORY: Chronic cholecystitis. Calculus of the gallbladder. Abdominal pain. TECHNIQUE: After the intravenous administration of 5.1 mCi Tc 99m Mebrofenin hepatobiliary scintigrap hy is performed. Immediate images post injection. FINDINGS: There is satisfactory initial accumulation of tracer by the liver. The gallbladder is visualized wit hin 3 hours. The small bowel activity is noted within 20 minutes. At 3 hours 8 ounces of oral ensur e plus is given to mimic CCK and gallbladder ejection fraction is calculated at 48 %, in the normal r daniella. Therefore there is no scintigraphic evidence of cystic or common bile duct obstruction to sugg est acute cholecystitis or gallbladder dyskinesia. IMPRESSION: Findings of chronic cholecystitis with delayed visualization of the gallbladder.
== END | disposition home or self-care (01) ==
LOC: RADNMMAIN 06:39
PROVIDERS: ATTEND Family Medicine
DX: K81.1 Chronic cholecystitis (principal)
CPT/HCPCS: 78226; A9537

== ENCOUNTER → 2018-12-10 | Outpatient (CLI) | payer OTHER ==
[2018-12-10 08:12] VITALS: BP 105/74; PULSE 73; RESP 18; TEMP 98; BMI 28.8
--- NOTE | 2018-12-10 08:55 | P.HPOB ---
History of Present Illness H&P Date: 12/10/18 Chief Complaint: The patient is here for her routine gynecologic exam and ma mmogram. This is a 58-year-old with an LMP of 2006. The patient states she has had some abdominal bloating and is undergoing a workup through her primary care physician. Pelvic ultrasound done on 11/28/2018 was unremarkable. The bilateral adnexa were within normal limits. She is otherwise without gynecologic complaints. She denies any postmenopausal bleeding. Review of Systems The patient has gained 4 pounds over the last year. She denies respiratory, cardiac, or G.I. problems. Past Medical History Past Medical History: COPD, Hyperlipidemia Additional Past Medical History / Comment(s): HEPATITIS C in the past. History of drug abuse s/p rehab. 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 She was treated for syphilis in 2014. History of Any Multi-Drug Resistant Organisms: None Reported Past Surgical History: Tubal Ligation Additional Past Surgical History / Comment(s): surgery for ectopic pregnancyx2. Colonoscopy 2017. Past Anesthesia/Blood Transfusion Reactions: No Reported Reaction Past Psychological History: No Psychological Hx Reported Smoking Status: Former smoker Past Alcohol Use History: None Reported Additional Past Alcohol Use History / Comment(s): quit smoking 2015, smoked for 40 yrs Past Drug Use History: Cocaine, Heroin, IV Drug Use Additional Drug Use History / Comment(s): none since 2015. Additional History: She is single and is not seeing anybody at this time. She works at [employer] - Past Family History Mother Family Medical History: No Reported History Additional Family Medical History / Comment(s): Maternal grandmother had ovarian cancer. Sister(s) Family Medical History: Diabetes Mellitus Medications and Allergies Home Medications Medication Instructions Recorded Confirmed Type Ascorbic Acid [Vitamin C] 500 mg PO DAILY 12/07/16 12/10/18 History Beclomethasone Dipropionate [Qvar 2 puff INHALATION RT-BID 12/07/16 12/10/18 History 40 mcg] Multivitamins, Thera [Multivitamin 1 tab PO DAILY 12/07/16 12/10/18 History (formulary)] traZODone HCL 200 mg PO HS 12/07/16 12/10/18 History [place]-3 Fatty Acids/Fish Oil [Fish 1 cap PO DAILY 09/03/17 12/10/18 History Oil 1,000 mg Softgel] Fenofibrate 40 mg PO DAILY 12/10/18 12/10/18 History Allergies Allergy/AdvReac Type Severity Reaction Status Date / Time No Known Allergies Allergy Verified 12/10/18 08:12 Exam Vital Signs Temp Pulse Resp BP Pulse Ox 12/10/18 08:09 98.0 F 73 18 105/74 95 Intake and Output 12/09/18 12/10/18 12/10/18 22:59 06:59 14:59 Other: Weight 86.183 kg Height 5'8", weight 190 pounds, BMI 28.9. This is a well-developed well-nourished black female who is alert and oriented times 3 in no acute distress. HEENT: Within normal limits. NECK: Supple without mass or thyromegaly. CHEST AND LUNGS: Clear to auscultation. HEART: Regular rate and rhythm. BREASTS: Are without mass or discharge. AXILLARY EXAM: Negative for adenopathy. BACK: Negative for CVA tenderness. ABDOMEN: Soft, nontender, without palpable masses. PELVIC EXAM: Normal external genitalia with mild atrophy. Cervix and vagina appear normal with mild atrophy. There is no unusual discharge. There is no evidence of prolapse. The uterus is midposition, nongravid size and nontender. There are no palpable adnexal masses or tenderness. RECTAL EXAM: rectovaginal exam is negative for mass or tenderness and is negative for occult blood. EXTREMITIES: Nontender. IMPRESSION: 1. 58-year-old menopausal female with normal gynecologic exam. 2. Recent history of abdominal bloating with normal pelvic ultrasound done this month. PLAN: 1. Pap smear was deferred since she had a normal one on 10/31/2017. 2. Self breast awareness was discussed with the patient. 3. Screening mammogram will be done today. 4. Osteoporosis prevention was discussed. I have stressed the importance of adequate calcium, vitamin D and regular exercise. Recommended amounts of calcium and vitamin D were also discussed. 5. She was advised to return in one year for her annual well woman exam.
--- NOTE | 2018-12-12 09:58 | MM ---
Reason for exam: screening (asymptomatic). Last mammogram was performed 1 year and 1 month ago. History: Patient is postmenopausal. Physical Findings: A clinical breast exam by your physician is recommended on an annual basis and results should be correlated with mammographic findings. MG Screening Mammo w CAD Bilateral CC and MLO view(s) were taken. Prior study comparison: October 31, 2017, bilateral MG screening mammo w CAD. October 25, 2016, right breast MG work up mamm w CAD RT. There are scattered fibroglandular densities. No significant changes when compared with prior studies. ASSESSMENT: Negative, BI-RAD 1 RECOMMENDATION: Routine screening mammogram of both breasts in 1 year.
== END | disposition home or self-care (01) ==
LOC: WWCWWP 08:01
PROVIDERS: ATTEND Obstetrics & Gynecology
DX: Z12.31 Encounter for screening mammogram for malignant neoplasm of breast (principal)
CPT/HCPCS: 77067

== ENCOUNTER → 2019-02-04 | Outpatient (CLI) | payer OTHER ==
[2019-02-04 12:03] LABS: Basophils # (A) 0.1 k/uL (0-0.2); Basophils % (A) 2 %; Eosinophils # (A) 0.1 k/uL (0-0.7); Eosinophils % (A) 4 %; HCT 45.9 % (34.0-46.0); Lymphocytes % (A) 37 %; MCH 29.9 pg (25.0-35.0); MCHC 32.6 g/dL (31.0-37.0); MCV 91.7 fL (80.0-100.0); Mean Platelet Volume 7.6; Monocytes # (A) 0.3 k/uL (0-1.0); Monocytes % (A) 10 %; Neutrophils # (A) 1.2 k/uL (1.3-7.7); Neutrophils % (A) 43 %; Platelet Count 215 k/uL (150-450); RBC 5.01 m/uL (3.80-5.40); RDW 12.8 % (11.5-15.5); WBC 2.7 k/uL (3.8-10.6)
[2019-02-04 19:11] LABS: African American GFR (CKD) 72.4 (60.0-200.0); Albumin 4.2 g/dL (3.80-4.90); Albumin/Globulin Ratio 1.75 (1.60-3.17); Anion Gap 12.2 mmol/L (4.00-12.00); Calcium 9.1 mg/dL (8.7-10.3); Carbon Dioxide 19.8 mmol/L (21.6-31.8); Chol/HDL Ratio 4.37; Globulin 2.4 g/dL (1.6-3.3); LDL Cholesterol,Calculated 111.6 mg/dL (0.0-131.0); Potassium 4.3 mmol/L (3.5-5.5); Total Bilirubin 0.5 mg/dL (0.2-1.2); Total Protein 6.6 g/dL (6.2-8.2); VLDL Calculation 16.4 mg/dL (5.00-40.00)
== END | disposition home or self-care (01) ==
LOC: LABWHC1 08:54
PROVIDERS: ATTEND Family Medicine
DX: E78.2 Mixed hyperlipidemia (principal); J44.9 Chronic obstructive pulmonary disease, unspecified; E55.9 Vitamin D deficiency, unspecified
CPT/HCPCS: 36415; 80053; 80061; 82306; 84443; 84550; 85025

== ENCOUNTER → 2019-10-21 | Outpatient (CLI) | payer OTHER ==
[2019-10-21 09:14] LABS: Basophils % (A) 1 %; Eosinophils # (A) 0.1 k/uL (0-0.7); Eosinophils % (A) 4 %; HCT 44.4 % (34.0-46.0); Lymphocytes # (A) 1.2 k/uL (1.0-4.8); Lymphocytes % (A) 41 %; MCH 31.3 pg (25.0-35.0); MCHC 33.8 g/dL (31.0-37.0); MCV 92.7 fL (80.0-100.0); Mean Platelet Volume 7.2; Monocytes # (A) 0.2 k/uL (0-1.0); Monocytes % (A) 6 %; Neutrophils # (A) 1.3 k/uL (1.3-7.7); Neutrophils % (A) 45 %; Platelet Count 249 k/uL (150-450); RBC 4.79 m/uL (3.80-5.40); RDW 12.6 % (11.5-15.5); WBC 2.9 k/uL (3.8-10.6)
[2019-10-21 16:54] LABS: African American GFR (CKD) 71.9 (60.0-200.0); Albumin 4.1 g/dL (3.80-4.90); Albumin/Globulin Ratio 1.52 (1.60-3.17); Anion Gap 9.4 mmol/L (4.00-12.00); Calcium 9.4 mg/dL (8.7-10.3); Carbon Dioxide 22.6 mmol/L (21.6-31.8); Chol/HDL Ratio 3.72; Globulin 2.7 g/dL (1.6-3.3); LDL Cholesterol,Calculated 109.4 mg/dL (0.0-131.0); Non-African American GFR(CKD) 62.1 (60.0-200.0); Potassium 4.3 mmol/L (3.5-5.5); Total Bilirubin 0.5 mg/dL (0.2-1.2); Total Protein 6.8 g/dL (6.2-8.2); VLDL Calculation 15.6 mg/dL (5.00-40.00)
== END | disposition home or self-care (01) ==
LOC: LABWHC1 07:45
PROVIDERS: ATTEND Family Medicine
DX: E78.2 Mixed hyperlipidemia (principal); E55.9 Vitamin D deficiency, unspecified
CPT/HCPCS: 36415; 80053; 80061; 82306; 84443; 84550; 85025

== ENCOUNTER → 2019-11-25 | Outpatient (CLI) | payer OTHER ==
[2019-11-25 11:57] LABS: Basophils % (A) 1 %; Eosinophils # (A) 0.1 k/uL (0-0.7); Eosinophils % (A) 2 %; HGB 13.9 gm/dL (11.4-16.0); Lymphocytes # (A) 1.3 k/uL (1.0-4.8); Lymphocytes % (A) 43 %; MCH 30.1 pg (25.0-35.0); MCHC 32.4 g/dL (31.0-37.0); MCV 92.7 fL (80.0-100.0); Mean Platelet Volume 7.2; Monocytes # (A) 0.3 k/uL (0-1.0); Monocytes % (A) 9 %; Neutrophils # (A) 1.2 k/uL (1.3-7.7); Neutrophils % (A) 42 %; Platelet Count 240 k/uL (150-450); RBC 4.64 m/uL (3.80-5.40); RDW 12.8 % (11.5-15.5); WBC 2.9 k/uL (3.8-10.6)
[2019-11-25 18:41] LABS: % Iron Saturation 33.23 (12.00-45.00); Iron 111 ug/dL (50-170); Total Iron Binding Capacity 334 ug/dL (228-460)
[2019-11-25 18:49] LABS: Ferritin 297.1 ng/mL (10.0-291.0)
[2019-11-25 18:53] LABS: Folate, Serum >24.0 ng/mL
[2019-11-25 19:08] LABS: Hepatitis B Surface Antigen Non-Reactive (Non-Reactive); Hepatitis C IgG Antibody Reactive (Non-Reactive)
[2019-11-26 16:14] LABS: HIV 2 AB Non-Reactive (Non-Reactive); HIV AB P24 Non-Reactive (Non-Reactive); HIV P24 AG Non-Reactive (Non-Reactive)
== END | disposition home or self-care (01) ==
LOC: LABWHC1 11:08
PROVIDERS: ATTEND Family Medicine
DX: E78.2 Mixed hyperlipidemia (principal); R20.2 Paresthesia of skin; D72.819 Decreased white blood cell count, unspecified
CPT/HCPCS: 36415; 82607; 82728; 82746; 83540; 83550; 85025; 86592; 86780; 86803; 87340; 87390

== ENCOUNTER → 2019-12-30 | Outpatient (CLI) | payer OTHER ==
[2019-12-30 08:19] VITALS: BP 125/87; PULSE 88; RESP 20; TEMP 97.7
--- NOTE | 2019-12-30 08:52 | P.HPOB ---
History of Present Illness H&P Date: 12/30/19 Chief Complaint: The patient is here for her routine gynecologic exam and ma mmogram. This is a 59-year-old with an LMP of 2006. The patient is without gynecologic complaints and denies any postmenopausal bleeding. Review of Systems The patient has gained 5 pounds over the last year. She states she would like to try to lose weight. She denies respiratory, cardiac, or G.I. problems. Past Medical History Past Medical History: COPD, Hyperlipidemia Additional Past Medical History / Comment(s): HEPATITIS C in the past. History of drug abuse s/p rehab. 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 She was treated for syphilis in 2014. History of Any Multi-Drug Resistant Organisms: None Reported Past Surgical History: Tubal Ligation Additional Past Surgical History / Comment(s): surgery for ectopic pregnancyx2. Colonoscopy 2017(next after 10yr). Past Anesthesia/Blood Transfusion Reactions: No Reported Reaction Past Psychological History: No Psychological Hx Reported Smoking Status: Former smoker Past Alcohol Use History: None Reported Additional Past Alcohol Use History / Comment(s): quit smoking 2015, smoked for 40 yrs Past Drug Use History: Cocaine, Heroin, IV Drug Use Additional Drug Use History / Comment(s): none since 2016. Additional History: She is single and is not seeing anybody at this time. She has not been sexually active for several years. She works at [employer]. - Past Family History Mother Family Medical History: No Reported History Additional Family Medical History / Comment(s): Maternal grandmother had ovarian cancer. Sister(s) Family Medical History: Cancer, Diabetes Mellitus Additional Family Medical History / Comment(s): One sister had some type of cancer but she is unsure of the type. Another sister has diabetes. Medications and Allergies Home Medications Medication Instructions Recorded Confirmed Type Ascorbic Acid [Vitamin C] 500 mg PO DAILY 12/07/16 12/30/19 History Multivitamins, Thera [Multivitamin 1 tab PO DAILY 12/07/16 12/30/19 History (formulary)] traZODone HCL 200 mg PO HS 12/07/16 12/30/19 History [place]-3 Fatty Acids/Fish Oil [Fish 1 cap PO DAILY 09/03/17 12/30/19 History Oil 1,000 mg Softgel] Fenofibrate 40 mg PO DAILY 12/10/18 12/30/19 History Azithromycin [Zithromax Z-pack] 0 mg PO DIRECTED 12/30/19 12/30/19 History Tiotropium 18 Mcg/Puff [Spiriva] 1 puff INHALATION DAILY 12/30/19 12/30/19 History methylPREDNISolone [Medrol Dose 4 mg PO DIRECTED 12/30/19 12/30/19 History Pack] Allergies Allergy/AdvReac Type Severity Reaction Status Date / Time No Known Allergies Allergy Verified 12/30/19 08:12 Exam Vital Signs Temp Pulse Resp BP Pulse Ox 12/30/19 08:15 97.7 F 88 20 125/87 94 L Intake and Output 12/29/19 12/30/19 12/30/19 22:59 06:59 14:59 Other: Weight 88.451 kg Height 5 feet 7 inches, weight 195 pounds, BMI 30.5. This is a well-developed well-nourished black female who is alert and oriented times 3 in no acute distress. HEENT: Within normal limits. NECK: Supple without mass or thyromegaly. CHEST AND LUNGS: Clear to auscultation. HEART: Regular rate and rhythm. BREASTS: Are without mass or discharge. AXILLARY EXAM: Negative for adenopathy. BACK: Negative for CVA tenderness. ABDOMEN: Soft, nontender, without palpable masses. PELVIC EXAM: Normal external genitalia. Cervix and vagina appear normal. There is no unusual discharge. There is no evidence of prolapse. The uterus is midposition, nongravid size and nontender. There are no palpable adnexal masses or tenderness. RECTAL EXAM: Rectovaginal exam is negative for mass or tenderness and is negative for occult blood. EXTREMITIES: Nontender. IMPRESSION: 1. 59-year-old menopausal female with normal gynecologic exam. PLAN: 1. Pap smear was performed. 2. Self breast awareness was discussed with the patient. 3. Screening mammogram will be done today. 4. Osteoporosis prevention was discussed. I have stressed the importance of adequate calcium, vitamin D and regular exercise. Recommended amounts of calcium and vitamin D were also discussed. We will plan on doing a baseline bone density testing at age 61. 5. Weight control was discussed with the patient. I have stressed the importance of good nutrition and regular exercise. I have recommended that she ate at least 3 meals per day and try to get adequate fiber in her diet. 6. She was advised to return in one year for her annual well woman exam.
--- NOTE | 2019-12-31 11:48 | MM ---
Reason for exam: screening (asymptomatic). Last mammogram was performed 1 year and 1 month ago. History: Patient is postmenopausal. Physical Findings: A clinical breast exam by your physician is recommended on an annual basis and results should be correlated with mammographic findings. MG Screening Mammo w CAD Bilateral CC and MLO view(s) were taken. Prior study comparison: December 10, 2018, bilateral MG screening mammo w CAD. October 31, 2017, bilateral MG screening mammo w CAD. There are benign appearing round calcifications bilaterally. There is no discrete abnormality. ASSESSMENT: Benign, BI-RAD 2 RECOMMENDATION: Routine screening mammogram of both breasts in 1 year.
== END | disposition home or self-care (01) ==
LOC: WWCWWP 08:02
PROVIDERS: ATTEND Obstetrics & Gynecology
DX: Z12.31 Encounter for screening mammogram for malignant neoplasm of breast (principal)
CPT/HCPCS: 77067

== ENCOUNTER → 2020-01-20 | Outpatient (CLI) | payer OTHER ==
--- NOTE | 2020-01-20 08:27 | US ---
EXAMINATION TYPE: US venous doppler duplex LE DATE OF EXAM: 01/20/2020 7:21 AM COMPARISON: None. CLINICAL HISTORY: Pain in leg left and right M79.605, M79.604. Patient states having numbness in legs that comes and goes. No swelling. No redness. No hx blood clots. SIDE PERFORMED: Bilateral TECHNIQUE: The lower extremity deep venous system is examined utilizing real time linear array sonog mariana with graded compression, doppler sonography and color-flow sonography. VESSELS IMAGED: External Iliac Vein (EIV) Common Femoral Vein Deep Femoral Vein Greater Saphenous Vein * Femoral Vein Popliteal Vein Small Saphenous Vein * Proximal Calf Veins (* superficial vessels) Right Leg: Negative for DVT Left Leg: Negative for DVT Grayscale, color doppler, spectral doppler imaging performed of the deep veins of the bilateral lower extremities. There is normal flow, compressibility, vascular waveforms. IMPRESSION: No ultrasound evidence for acute DVT in either lower extremity.
--- NOTE | 2020-01-22 11:07 | P.ARTDOP ---
Arterial Doppler LOWER EXTREMITY ARTERIAL DOPPLER: DATE OF SERVICE: 01/20/2020 Reason for study: Bilateral foot numbness. Doppler waveforms: Multiphasic bilaterally throughout. Pulse volume recording: []. Pressure gradients: None. Ankle-brachial indices: Greater than 1 bilaterally. Toe brachial indices: 1.07 on the right, 1.07 on the left Impression: Normal study.
== END | disposition home or self-care (01) ==
LOC: RADUSWWP 06:56
PROVIDERS: ATTEND Family Medicine
DX: M79.605 Pain in left leg (principal); M79.604 Pain in right leg
CPT/HCPCS: 93922; 93970

== ENCOUNTER → 2020-03-15 | Outpatient (CLI) | payer OTHER ==
--- NOTE | 2020-03-15 09:20 | XR ---
EXAMINATION TYPE: XR chest 2V DATE OF EXAM: 03/15/2020 COMPARISON: 09/03/2017 HISTORY: 60-year-old female R06.2, wheezing TECHNIQUE: Frontal and lateral views of the chest are obtained. FINDINGS: Heart normal size. Aorta and coronary vasculature within normal limits. Mild hyperinflation. Some foc al patchy medial right basilar opacity. Relative upper lung lucencies. Left hilar prominence may be s uperimposition. No consolidation or pleural effusion. IMPRESSION: 1. COPD with medial right basilar atelectasis versus infiltrate. 2. Some nodular prominence at the left hilum could represent summation artifact. Contrast-enhanced CT chest can provide a comparison to the patient's prior 07/16/2018 exam and exclude hilar lymphadenopath y/mass.
== END | disposition home or self-care (01) ==
LOC: RADXRMAIN 08:17
PROVIDERS: ATTEND Family Medicine
DX: J44.9 Chronic obstructive pulmonary disease, unspecified (principal); R91.8 Other nonspecific abnormal finding of lung field
CPT/HCPCS: 71046

== ENCOUNTER → 2020-03-30 | Outpatient (CLI) | payer OTHER ==
--- NOTE | 2020-03-30 09:00 | CT ---
EXAMINATION TYPE: CT chest wo con DATE OF EXAM: 03/30/2020 COMPARISON: Chest x-ray March 15, 2020. CT chest July 16, 2018 and older study from 2016 HISTORY: Abn CXR CT DLP: 254.5 mGycm. Automated Exposure Control for Dose Reduction was Utilized. TECHNIQUE: CT scan of the thorax is performed without IV contrast. FINDINGS: LUNGS: Moderate to advanced underlying emphysematous changes redemonstrated greatest in the lung apic es. No pleural effusion or pneumothorax is seen bilaterally. No suspicious nodules or masses with par ticular attention to the medial right lung base and the left hilar regions. Mild dependent atelectasi s in the bilateral lower lobes. No suspicious focal groundglass opacity or consolidation. MEDIASTINUM: Lack of IV contrast is noted to limit evaluation for mediastinal and especially hilar a denopathy. There are no definitive greater than 1 cm hilar or mediastinal lymph nodes. No cardiomeg jacquelyn is seen. Stable small to tiny pericardial effusion or thickening anteriorly. Persistent enlarged right and left pulmonary arteries, CT findings consistent with underlying pulmonary artery hypertensi on. OTHER: Mild multilevel spurring in the mid to lower thoracic spine. Persistent 1.8 cm intraluminal ga llstone axial image 64 IMPRESSION: Persistent moderate to advanced underlying emphysematous change with underlying pulmonary artery hypertension. No new suspicious acute pulmonary process on current study. No new suspicious m asses or nodules.
== END | disposition home or self-care (01) ==
LOC: RADCTMAIN 07:32
PROVIDERS: ATTEND Family Medicine
DX: J43.9 Emphysema, unspecified (principal); I27.20 Pulmonary hypertension, unspecified
CPT/HCPCS: 71250

== ENCOUNTER → 2020-05-12 | Outpatient (CLI) | payer OTHER ==
[2020-05-12 08:21] VITALS: BP 100/65; PULSE 73; RESP 20; TEMP 98.1
--- NOTE | 2020-05-12 08:50 | P.PN ---
Progress Note - Text Progress Note Date: 05/12/20 Chief Complaint: Vaginal dryness with intercourse HPI: This is a 60-year-old with an LMP of 2006. The patient states she is in a new relationship and has been sexually active. She has been having issues with vaginal dryness and discomfort with sexual intercourse. She has tried a water based [id number] lubricant which helps, but does not seem to last very long and again can get uncomfortable. The sexual intercourse has been enjoyable, but the dryness has become an issue. ROS: Unremarkable PE: Blood pressure: 100/65, Height: 5 feet 8 inches, Weight: 192 pounds, Temperature: 98.1, Pulse: 73. Pulse oximeter 90%. This is a well developed, well nourished, black female who is alert and orientedx3, in no acute distress. Impression: 1. 60-year-old menopausal female with Dyspareunia secondary to vaginal dryness caused by genital atrophy. Plan: 1. We have had a long discussion regarding vaginal dryness and how this is related to genital atrophy. I have recommended that she try different [id number] vaginal lubricants and suggestions were given to the patient. I recommended that she avoid using saliva as a lubricant. 2. We have discussed vaginal estrogen as an option since she has not been fully satisfied with vulk-lar-[id number] lubrication. She would like to have a trial of some form of estrogen cream or tablet that she can insert vaginally. I will try to prescribe estradiol vaginal cream 1 g into the vagina 2 times weekly. If her insurance does not cover this and see if it covers Vagifem 10 g into the vagina 2 times weekly. The electronic prescription will be sent to [facility] pharmacy. 3. STD prevention was discussed. I have stressed the importance of limiting sexual partners and to consider condom use if she is sexually active. 4. She will return in approximately 8 months when she is due for her annual examination and as needed. Time spent with the patient: 20 minutes
== END | disposition home or self-care (01) ==
LOC: WWCWWP 08:06
PROVIDERS: ATTEND Obstetrics & Gynecology
DX: Z53.9 Procedure and treatment not carried out, unspecified reason (principal)

== ENCOUNTER → 2020-07-12 | Outpatient (CLI) | payer OTHER ==
[2020-07-12 10:27] LABS: Basophils # (A) 0.03 X 10*3/uL (0.00-0.10); Basophils % (A) 0.9 %; Eosinophils # (A) 0.11 X 10*3/uL (0.04-0.35); Eosinophils % (A) 3.3 %; HCT 44.7 % (37.2-46.3); HGB 15.1 g/dL (12.0-15.0); Lymphocytes % (A) 41.9 %; MCH 30.4 pg (27.0-32.0); MCHC 33.8 g/dL (32.0-37.0); MCV 89.9 fL (80.0-97.0); Mean Platelet Volume 9.9 fL (9.5-12.2); Monocytes # (A) 0.44 X 10*3/uL (0.20-1.00); Monocytes % (A) 13.2 %; Neutrophils # (A) 1.33 X 10*3/uL (1.80-7.70); Neutrophils % (A) 39.8 %; Platelet Count 251 X 10*3/uL (140-440); RBC 4.97 X 10*6/uL (4.10-5.20); RDW 12.8 % (11.5-14.5); WBC 3.34 X 10*3/uL (4.50-10.00)
[2020-07-12 12:59] LABS: African American GFR (CKD) 81.1 (60.0-200.0); Albumin 4.2 g/dL (3.80-4.90); Albumin/Globulin Ratio 1.62 (1.60-3.17); Anion Gap 7.6 mmol/L (4.00-12.00); BUN/Creat Ratio 25.56 Ratio (12.00-20.00); Calcium 9.2 mg/dL (8.7-10.3); Carbon Dioxide 23.4 mmol/L (21.6-31.8); Chol/HDL Ratio 3.91; Globulin 2.6 g/dL (1.6-3.3); LDL Cholesterol,Calculated 112.6 mg/dL (0.0-131.0); Total Bilirubin 0.3 mg/dL (0.3-1.2); Total Protein 6.8 g/dL (6.2-8.2); Uric Acid 3.8 mg/dL (2.9-7.7); VLDL Calculation 15.4 mg/dL (5.00-40.00)
== END | disposition home or self-care (01) ==
LOC: LABWHC1 07:28
PROVIDERS: ATTEND Family Medicine
DX: E78.2 Mixed hyperlipidemia (principal); E55.9 Vitamin D deficiency, unspecified
CPT/HCPCS: 36415; 80053; 80061; 82306; 84443; 84550; 85025

== ENCOUNTER → 2020-10-01 | Outpatient (CLI) | payer OTHER ==
--- NOTE | 2020-10-01 13:26 | US ---
EXAMINATION TYPE: US venous doppler duplex LE LT DATE OF EXAM: 10/01/2020 1:14 PM COMPARISON: NONE CLINICAL HISTORY: LLE M79.605 Pain in left leg,M25.562 acute pain of knee. Left knee pain. Patient s tates she went on trampoline with grandchildren x 1 week ago. No redness. No swelling. SIDE PERFORMED: Left TECHNIQUE: The lower extremity deep venous system is examined utilizing real time linear array sonog mariana with graded compression, doppler sonography and color-flow sonography. VESSELS IMAGED: Common Femoral Vein Deep Femoral Vein Greater Saphenous Vein * Femoral Vein Popliteal Vein Proximal Calf Veins (* superficial vessels) Left Leg: Negative for DVT IMPRESSION: No sonographic evidence for deep vein thrombosis of the left lower extremity.
== END | disposition home or self-care (01) ==
LOC: RADUSWWP 12:53
PROVIDERS: ATTEND Family Medicine
DX: M79.605 Pain in left leg (principal); M25.562 Pain in left knee

== ENCOUNTER → 2020-12-09 | Outpatient (CLI) | payer OTHER ==
[2020-12-09 15:30] LABS: Basophils # (A) 0.03 X 10*3/uL (0.00-0.10); Eosinophils # (A) 0.08 X 10*3/uL (0.04-0.35); Eosinophils % (A) 2.7 %; HCT 45.1 % (37.2-46.3); HGB 14.7 g/dL (12.0-15.0); Lymphocytes # (A) 1.31 X 10*3/uL (0.90-5.00); MCH 29.8 pg (27.0-32.0); MCHC 32.6 g/dL (32.0-37.0); MCV 91.5 fL (80.0-97.0); Mean Platelet Volume 9.9 fL (9.5-12.2); Monocytes # (A) 0.46 X 10*3/uL (0.20-1.00); Monocytes % (A) 15.4 %; Neutrophils # (A) 1.09 X 10*3/uL (1.80-7.70); Neutrophils % (A) 36.6 %; Platelet Count 252 X 10*3/uL (140-440); RBC 4.93 X 10*6/uL (4.10-5.20); RDW 12.7 % (11.5-14.5); WBC 2.98 X 10*3/uL (4.50-10.00)
[2020-12-09 17:12] LABS: African American GFR (CKD) 57.3 (60.0-200.0); Albumin 4.4 g/dL (3.80-4.90); Albumin/Globulin Ratio 1.52 (1.60-3.17); Anion Gap 10.9 mmol/L (4.00-12.00); BUN/Creat Ratio 20.83 Ratio (12.00-20.00); Carbon Dioxide 20.1 mmol/L (21.6-31.8); Chol/HDL Ratio 3.81; Globulin 2.9 g/dL (1.6-3.3); LDL Cholesterol,Calculated 119.8 mg/dL (0.0-131.0); Non-African American GFR(CKD) 49.4 (60.0-200.0); Potassium 4.5 mmol/L (3.5-5.5); Total Bilirubin 0.5 mg/dL (0.2-1.2); Total Protein 7.3 g/dL (6.2-8.2); Uric Acid 4.5 mg/dL (2.9-7.7); VLDL Calculation 12.2 mg/dL (5.00-40.00)
[2020-12-09 17:31] LABS: T4, Free (Free Thyroxine) 0.9 ng/dL (0.80-1.80)
== END | disposition home or self-care (01) ==
LOC: LABWHC1 07:36
PROVIDERS: ATTEND Nurse Practitioner Family
DX: J44.9 Chronic obstructive pulmonary disease, unspecified (principal)
CPT/HCPCS: 36415; 80053; 80061; 82306; 84439; 84443; 84550; 85025; 87522

== ENCOUNTER → 2021-02-01 | Outpatient (CLI) | payer OTHER ==
[2021-02-01 08:12] VITALS: BP 126/77; PULSE 84; RESP 18; TEMP 97.9
--- NOTE | 2021-02-01 08:48 | P.HPOB ---
History of Present Illness H&P Date: 02/01/21 Chief Complaint: The patient is here for her routine gynecologic exam and ma mmogram. This is a 60-year-old 0-1 with an LMP of 2006. The patient is without gynecologic complaints and denies any postmenopausal bleeding. She states she was sexually active once with her ex-partner. She otherwise had not been sexually active during the past year. She has not used the estrogen vaginal cream as previously discussed. She has decided that she does not want to use this. Review of Systems The patient's weight has been stable over the last year. She denies respiratory, cardiac, or G.I. problems. Past Medical History Past Medical History: COPD, Hyperlipidemia Additional Past Medical History / Comment(s): HEPATITIS C in the past. History of drug abuse s/p rehab. 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 She was treated for syphilis in 2014. History of Any Multi-Drug Resistant Organisms: None Reported Past Surgical History: Tubal Ligation Additional Past Surgical History / Comment(s): surgery for ectopic pregnancyx2. Colonoscopy 2017(next after 10yr). Past Anesthesia/Blood Transfusion Reactions: No Reported Reaction Past Psychological History: No Psychological Hx Reported Smoking Status: Former smoker Past Alcohol Use History: None Reported Additional Past Alcohol Use History / Comment(s): quit smoking 2015, smoked for 40 yrs Past Drug Use History: Cocaine, Heroin, IV Drug Use Additional Drug Use History / Comment(s): none since 2015. Additional History: The patient is single and is not seeing anybody at this time. She works at [employer]. - Past Family History Mother Family Medical History: No Reported History Additional Family Medical History / Comment(s): Maternal grandmother had ovarian cancer. Sister(s) Family Medical History: Cancer, Diabetes Mellitus Additional Family Medical History / Comment(s): One sister had some type of cancer but she is unsure of the type. Another sister has diabetes. Medications and Allergies Home Medications Medication Instructions Recorded Confirmed Type Ascorbic Acid [Vitamin C] 500 mg PO DAILY 12/07/16 02/01/21 History Multivitamins, Thera [Multivitamin 1 tab PO DAILY 12/07/16 02/01/21 History (formulary)] traZODone HCL 200 mg PO HS 12/07/16 02/01/21 History [place]-3 Fatty Acids/Fish Oil [Fish 1 cap PO DAILY 09/03/17 02/01/21 History Oil 1,000 mg Softgel] Fenofibrate 40 mg PO DAILY 12/10/18 02/01/21 History Tiotropium 18 Mcg/Puff [Spiriva] 1 puff INHALATION DAILY 12/30/19 02/01/21 History Estradiol [Yuvafem] 10 mcg VG DIRECTED #16 tablet 05/12/20 02/01/21 Rx Allergies Allergy/AdvReac Type Severity Reaction Status Date / Time No Known Allergies Allergy Verified 02/01/21 08:12 Exam Vital Signs Temp Pulse Resp BP Pulse Ox 02/01/21 08:09 97.9 F 84 18 126/77 93 L Intake and Output 01/31/21 02/01/21 02/01/21 22:59 06:59 14:59 Other: Weight 88.451 kg Height 5 feet 8 inches, weight 195 pounds, BMI 29.6. This is a well-developed well-nourished black female who is alert and oriented times 3 in no acute distress. HEENT: Within normal limits. NECK: Supple without mass or thyromegaly. CHEST AND LUNGS: Clear to auscultation. HEART: Regular rate and rhythm. BREASTS: Are without mass or discharge. AXILLARY EXAM: Negative for adenopathy. BACK: Negative for CVA tenderness. ABDOMEN: Soft, nontender, without palpable masses. PELVIC EXAM: Normal external genitalia with mild atrophy. Cervix and vagina appear normal with mild atrophy. There is no unusual discharge. There is no cervical motion tenderness. There is no evidence of prolapse. The uterus is midposition, nongravid size and nontender. There are no palpable adnexal masses or tenderness. RECTAL EXAM: Rectovaginal exam is negative for mass or tenderness and is negative for occult blood. EXTREMITIES: Nontender. IMPRESSION: 1. 60-year-old menopausal female with normal gynecologic exam. 2. Unprotected Sexual encounter with a previous partner and history of STDs in the past. PLAN: 1. Pap smear was deferred since she had a normal one on 12/30/2019. 2. Self breast awareness was discussed with the patient. We have also discussed symptoms associated with inflammatory breast cancer. 3. Screening mammogram will be done today. 4. STD screening will be done today and this will include GC and Chlamydia testing obtained from the cervix, Trichomonas screening obtained from the vagin a, and blood tests will include HIV, RPR, hepatitis B surface antigen, and hepatitis C antibody. 5. Osteoporosis prevention was discussed. I have stressed the importance of adequate calcium, vitamin D and regular exercise. Recommended amounts of calcium and vitamin D were also discussed. Bone density testing was recommended at age 61. The order slip was given to the patient for this since she states she turns 61 in 2 weeks. 6. She was advised to return in one year for her annual well woman exam.
[2021-02-01 19:13] LABS: Hepatitis A Antibody IgM Nonreactive (Nonreactive); Hepatitis B Surface Antigen Nonreactive (Nonreactive)
--- NOTE | 2021-02-02 10:34 | MM ---
Reason for exam: screening (asymptomatic). Last mammogram was performed 1 year and 1 month ago. History: Patient is postmenopausal. Took hormonal contraceptives for 4 years. Physical Findings: A clinical breast exam by your physician is recommended on an annual basis and results should be correlated with mammographic findings. MG 3D Screening Mammo W/Cad Bilateral CC and MLO view(s) were taken. Prior study comparison: December 30, 2019, bilateral MG screening mammo w CAD. December 10, 2018, bilateral MG screening mammo w CAD. The breast tissue is heterogeneously dense. This may lower the sensitivity of mammography. Benign appearing calcifications in the left breast. There is chronic nodularity in the left breast, stable. No significant changes when compared with prior studies. ASSESSMENT: Benign, BI-RAD 2 RECOMMENDATION: Routine screening mammogram of both breasts in 1 year.
[2021-02-02 16:12] LABS: C. trachomatis,PCR Negative (Neg,Equiv); Chlamydia trachomatis Source Cervix; N. gonorrhoeae,PCR Negative (Neg,Equiv); Neisseria Source Cervix
== END ==
LOC: WWCWWP 07:47
PROVIDERS: ATTEND Obstetrics & Gynecology
DX: Z91.041 Radiographic dye allergy status (principal); Z12.31 Encounter for screening mammogram for malignant neoplasm of breast; E78.5 Hyperlipidemia, unspecified; J44.9 Chronic obstructive pulmonary disease, unspecified; Z87.891 Personal history of nicotine dependence; Z86.19 Personal history of other infectious and parasitic diseases
CPT/HCPCS: 36415; 77063; 77067; 86592; 86709; 86780; 87340; 87390; 87491; 87591; 87808

== ENCOUNTER → 2021-02-18 | Outpatient (CLI) | payer OTHER ==
[2021-02-18 16:45] LABS: Basophils # (A) 0.03 X 10*3/uL (0.00-0.10); Basophils % (A) 0.9 %; Eosinophils # (A) 0.16 X 10*3/uL (0.04-0.35); Eosinophils % (A) 4.8 %; HCT 43.7 % (37.2-46.3); HGB 14.2 g/dL (12.0-15.0); Lymphocytes # (A) 0.66 X 10*3/uL (0.90-5.00); MCHC 32.5 g/dL (32.0-37.0); MCV 92.4 fL (80.0-97.0); Monocytes # (A) 0.37 X 10*3/uL (0.20-1.00); Monocytes % (A) 11.2 %; Neutrophils # (A) 2.06 X 10*3/uL (1.80-7.70); Neutrophils % (A) 62.5 %; Platelet Count 225 X 10*3/uL (140-440); RBC 4.73 X 10*6/uL (4.10-5.20); RDW 13.4 % (11.5-14.5)
[2021-02-18 21:14] LABS: Rheumatoid Factor, Qnt <10 IU/mL (0-15)
[2021-02-21 09:15] LABS: Free Kappa Lt Chain Qnt, Serum 1.92 mg/dL (0.33-1.94)
== END | disposition home or self-care (01) ==
LOC: LABWHC1 07:59
PROVIDERS: ATTEND Internal Medicine Hematology & Oncology
DX: J44.9 Chronic obstructive pulmonary disease, unspecified (principal); D72.819 Decreased white blood cell count, unspecified
CPT/HCPCS: 36415; 82607; 82747; 83883; 83921; 84165; 85025; 86038; 86334; 86431

== ENCOUNTER → 2021-02-18 | Outpatient (CLI) | payer OTHER ==
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
--- NOTE | 2021-02-22 12:12 | P.PN ---
Progress Note - Text Progress Note Date: 02/22/21 OUTPATIENT FOLLOW-UP NOTE TEST(S)/RESULTS: Baseline bone density test done on 02/18/2021 shows osteopenia. METHOD OF NOTIFICATION: The patient was notified by phone. PATIENT COMMENTS: DIAGNOSIS: Osteopenia. DISCUSSION: I have stressed the importance of getting adequate calcium, vitamin D, and regular exercise. We will plan on repeating the bone density testing in 2-3 years. PLAN: She was advised to return in one year for her annual well woman exam.
== END | disposition home or self-care (01) ==
LOC: RADBDWWP 07:26
PROVIDERS: ATTEND Obstetrics & Gynecology
DX: M85.89 Other specified disorders of bone density and structure, multiple sites (principal); Z78.0 Asymptomatic menopausal state; Z79.52 Long term (current) use of systemic steroids
CPT/HCPCS: 77080

== ENCOUNTER → 2021-03-02 | Outpatient (CLI) | payer OTHER ==
--- NOTE | 2021-03-02 10:19 | US ---
EXAMINATION TYPE: US abdomen complete DATE OF EXAM: 03/02/2021 COMPARISON: NONE CLINICAL HISTORY: 61-year-old female D72.819 leukopenia. History of HEP C TECHNIQUE: Multiple sonographic images of the abdomen are obtained. FINDINGS: EXAM MEASUREMENTS: Liver Length: 16.0 cm Gallbladder Wall: 0.2 cm CBD: 0.8 cm Spleen: 9.8 x 3.6 cm Right Kidney: 11.6 x 5.5 x 5.0 cm Left Kidney: 10.7 x 5.6 x 5.4 cm Pancreas: Most of the pancreas is visualized and shows no gross abnormality. The main pancreatic duct is borderline dilated at 4 mm. Liver: Increased attenuation there are no focal lesions seen. Gallbladder: multiple folds, a 1.6 cm calculus is seen in the fundus of the gallbladder. No hydropic change, surrounding fluid, or wall thickening. Evidence for sonographic Funes's sign: Yes CBD: Mildly dilated. Spleen: wnl Kidneys: No hydronephrosis. Upper IVC: wnl Abd Aorta: wnl IMPRESSION: 1. Mildly dilated bile duct up to 8 mm. There is also borderline dilatation of the main pancreatic du ct at 4 mm. Correlate with alkaline phosphatase and bilirubin levels to exclude early biliary obstruc tion such as from an ampullary stenosis or distal obstructing lesion. CT versus ERCP/MRCP as clinical ly indicated. 2. Cholelithiasis with a 1.6 cm stone. Sonographic Funes sign is reported positive. Findings may ref lect chronic cholecystitis or referred pain. If concern for early acute cholecystitis, HIDA scan can be performed. 3. Moderate hepatic steatosis.
== END | disposition home or self-care (01) ==
LOC: RADUSWWP 07:36
PROVIDERS: ATTEND Internal Medicine Hematology & Oncology
DX: K76.0 Fatty (change of) liver, not elsewhere classified (principal); K83.8 Other specified diseases of biliary tract; K80.20 Calculus of gallbladder without cholecystitis without obstruction
CPT/HCPCS: 76700

== ENCOUNTER 2021-03-17 18:53 | Emergency (ER) | payer OTHER ==
[2021-03-17 19:07] VITALS: TEMP 97.9
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
[2021-03-17] MEDS ORDERED: MORPHINE SULFATE 4 MG/ML SYRINGE IVP STA (20:52)
[2021-03-17 21:35] LABS: Appearance,Urine Clear (Clear); Bacteria,Urine Occasional /hpf; Bilirubin,Urine Negative (Negative); Blood,Urine Negative (Negative); Color,Urine Light Yellow; Glucose,Urine (UA) Negative (Negative); Hyaline Casts,Urine 1 /lpf (0-2); Ketones,Urine Negative (Negative); Leukocyte Esterase,Urine Negative (Negative); Mucus,Urine Rare /hpf; Nitrite,Urine Positive (Negative); Protein,Urine Negative (Negative); Specific Gravity,Urine 1.019 (1.001-1.035); Squamous Epithelial Cell,Urine <1 /hpf (0-4); Urobilinogen,Urine <2.0 mg/dL (<2.0); WBC,Urine 2 /hpf (0-5)
[2021-03-17 21:36] LABS: Basophils % (A) 1 %; Eosinophils # (A) 0.1 k/uL (0-0.7); Eosinophils % (A) 3 %; HCT 41.5 % (34.0-46.0); HGB 14.2 gm/dL (11.4-16.0); Lymphocytes # (A) 1.3 k/uL (1.0-4.8); Lymphocytes % (A) 34 %; MCH 30.6 pg (25.0-35.0); MCHC 34.2 g/dL (31.0-37.0); MCV 89.6 fL (80.0-100.0); Mean Platelet Volume 7.4; Monocytes # (A) 0.3 k/uL (0-1.0); Monocytes % (A) 7 %; Neutrophils % (A) 52 %; Platelet Count 220 k/uL (150-450); RBC 4.63 m/uL (3.80-5.40); RDW 12.5 % (11.5-15.5); WBC 3.9 k/uL (3.8-10.6)
[2021-03-17 21:45] LABS: ALT 28 U/L (4-34); AST 39 U/L (14-36); African American GFR (CKD) 70 (>60 ml/min/1.73 sqM); Alcohol <10 mg/dL; Alkaline Phosphatase 68 U/L (38-126); Anion Gap 8 mmol/L; Blood Urea Nitrogen 18 mg/dL (7-17); Calcium 9.2 mg/dL (8.4-10.2); Carbon Dioxide 21 mmol/L (22-30); Chloride 108 mmol/L (98-107); Glucose 79 mg/dL (74-99); Non-African American GFR(CKD) 61 (>60 ml/min/1.73 sqM); Potassium 4.3 mmol/L (3.5-5.1); Sodium 137 mmol/L (137-145); Total Bilirubin 0.5 mg/dL (0.2-1.3); Total Protein 7.1 g/dL (6.3-8.2)
[2021-03-17 21:47] LABS: INR 1.1 (<1.2); Partial Thromboplastin Time 24.1 sec (22.0-30.0); Prothrombin Time 11.3 sec (9.0-12.0)
[2021-03-17 21:48] LABS: Amphetamine Screen,Urine Not Detected (NotDetected); Barbiturate Screen,Urine Not Detected (NotDetected); Benzodiazepines Screen,Urine Not Detected (NotDetected); Cocaine Screen,Urine Not Detected (NotDetected); Methadone Screen, Urine Not Detected (NotDetected); Opiate Screen,Urine Not Detected (NotDetected); Oxycodone Screen, Urine Not Detected (NotDetected); Phencyclidine Screen,Urine Not Detected (NotDetected); Tricyclic Antidepressant,Urine Not Detected (NotDetected); Urn Cannabinoid Scrn Not Detected (NotDetected)
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
[2021-03-17 23:19] VITALS: BP 132/89; PULSE 69; RESP 16
== END 2021-03-17 22:30 | disposition home or self-care (01) ==
LOC: EC 18:53
DX: S39.012A Strain of muscle, fascia and tendon of lower back, initial encounter (principal); J44.9 Chronic obstructive pulmonary disease, unspecified; E78.5 Hyperlipidemia, unspecified; Z98.51 Tubal ligation status; Z87.891 Personal history of nicotine dependence; V89.2XXA Person injured in unspecified motor-vehicle accident, traffic, initial encounter; Y92.410 Unspecified street and highway as the place of occurrence of the external cause
CPT/HCPCS: 99284; 96374; 36415; 86900; 86901; 80053; 84484; 85025; 85610; 85730; 86850; 81001; 80306; 80320; 72125; 72132; 70450; 71260; 74177; J2270; Q9967

== ENCOUNTER → 2021-11-14 | Outpatient (CLI) | payer OTHER ==
[2021-11-14 10:44] LABS: Basophils # (A) 0.02 X 10*3/uL (0.00-0.10); Basophils % (A) 0.6 %; Eosinophils # (A) 0.08 X 10*3/uL (0.04-0.35); Eosinophils % (A) 2.6 %; HCT 43.2 % (37.2-46.3); HGB 14.3 g/dL (12.0-15.0); Immature Grans, Automated 0.3 %; Lymphocytes # (A) 1.29 X 10*3/uL (0.90-5.00); Lymphocytes % (A) 41.2 %; MCH 29.6 pg (27.0-32.0); MCHC 33.1 g/dL (32.0-37.0); MCV 89.4 fL (80.0-97.0); Mean Platelet Volume 9.8 fL (9.5-12.2); Monocytes # (A) 0.42 X 10*3/uL (0.20-1.00); Monocytes % (A) 13.4 %; NRBC Per 100 WBC 0 /100 WBCS (0.0-0.0); Neutrophils # (A) 1.31 X 10*3/uL (1.80-7.70); Neutrophils % (A) 41.9 %; Platelet Count 242 X 10*3/uL (140-440); RBC 4.83 X 10*6/uL (4.10-5.20); RDW 13.1 % (11.5-14.5); WBC 3.13 X 10*3/uL (4.50-10.00)
[2021-11-14 11:29] LABS: ALT 20 U/L (8-44); AST 28 U/L (13-35); African American GFR (CKD) 70.9 (60.0-200.0); Albumin 4.2 g/dL (3.8-4.9); Alkaline Phosphatase 61 U/L (41-126); Blood Urea Nitrogen 21.1 mg/dL (9.0-27.0); Calcium 9.4 mg/dL (8.7-10.3); Carbon Dioxide 21.3 mmol/L (20.0-27.5); Chloride 109 mmol/L (96-109); Chol/HDL Ratio 3.66 Ratio; Globulin 2.8 g/dL (1.6-3.3); Glucose 103 mg/dL (70-110); LDL Cholesterol,Calculated 108.4 mg/dL (0.0-131.0); Non-African American GFR(CKD) 61.2 (60.0-200.0); Sodium 140 mmol/L (135-145); VLDL Calculation 10.14 mg/dL (5.00-40.00)
== END | disposition home or self-care (01) ==
LOC: LABWHC1 07:10
PROVIDERS: ATTEND Family Medicine
DX: E78.2 Mixed hyperlipidemia (principal); D72.819 Decreased white blood cell count, unspecified; E55.9 Vitamin D deficiency, unspecified
CPT/HCPCS: 36415; 80053; 80061; 82306; 82607; 82728; 82746; 85025

== ENCOUNTER → 2022-02-15 | Outpatient (CLI) | payer OTHER ==
--- NOTE | 2022-02-15 08:04 | CTL ---
EXAMINATION TYPE: CT Low Dose Lung DATE OF EXAM ORDERED: 02/15/2022 COMPARISON: HISTORY: . Low Dose CT Lung Screening CT DLP: 131.[address] CTDI: 3.8 mGy IV CONTRAST USED: None. SCREENING VISIT: First visit COMPARISON: None. TECHNIQUE: Low dose computed tomography scan was performed through the chest at 1 millimeter thick se ctions and reconstructed images in the coronal plane at [address] DIAGNOSTIC QUALITY: Satisfactory FINDINGS: LUNG NODULES: Not presentLeft lung: no nodules identified.Right lung: no nodules identified. LUNGS: COPD: Severity: Moderate to severe emphysematous changes. Fibrosis: Severity:None Lymph nodes: None Other findings: None RIGHT PLEURAL SPACE: Effusion: None Calcification: None Thickening: None Pneumothorax: None LEFT PLEURAL SPACE: Effusion: None Calcification: None Thickening: None Pneumothorax: None HEART: Heart Size: Mildly enlarged Coronary calcification: Mild Pericardial effusion: None OTHER FINDINGS: Upper abdomen: No significant abnormality Bony thorax: Degenerative changes Supraclavicular region: No significant abnormalityOther: No significant abnormalityI IMPRESSION: Emphysematous changes without evidence for discrete nodule at this time. FOLLOW UP CT CHEST RECOMMENDATION: Follow-up screening in one year CT LUNG RAD: LUNG RAD CATEGORY 1 negative
== END | disposition home or self-care (01) ==
LOC: RADCTMAIN 06:27
PROVIDERS: ATTEND Internal Medicine Critical Care Medicine
DX: Z12.2 Encounter for screening for malignant neoplasm of respiratory organs (principal); J43.9 Emphysema, unspecified; Z87.891 Personal history of nicotine dependence
CPT/HCPCS: 71271

== ENCOUNTER → 2022-02-15 | Outpatient (CLI) | payer OTHER | END | disposition home or self-care (01) | LOC: LABWHC1 08:25 | PROVIDERS: ATTEND Family Medicine | DX: Z01.84 Encounter for antibody response examination (principal); Z11.3 Encounter for screening for infections with a predominantly sexual mode of transmission | CPT/HCPCS: 36415; 86592; 86787 ==

== ENCOUNTER → 2022-07-07 | Outpatient (CLI) | payer OTHER ==
[2022-07-07 10:46] LABS: Basophils # (A) 0.03 X 10*3/uL (0.00-0.10); Basophils % (A) 1.1 %; Eosinophils # (A) 0.07 X 10*3/uL (0.04-0.35); Eosinophils % (A) 2.5 %; HCT 45.4 % (37.2-46.3); HGB 15.3 g/dL (12.0-15.0); Immature Grans, Automated 0.7 %; Lymphocytes # (A) 1.04 X 10*3/uL (0.90-5.00); Lymphocytes % (A) 36.5 %; MCH 30.2 pg (27.0-32.0); MCHC 33.7 g/dL (32.0-37.0); MCV 89.5 fL (80.0-97.0); Mean Platelet Volume 9.7 fL (9.5-12.2); Monocytes # (A) 0.47 X 10*3/uL (0.20-1.00); Monocytes % (A) 16.5 %; NRBC Per 100 WBC 0 /100 WBCS (0.0-0.0); Neutrophils # (A) 1.22 X 10*3/uL (1.80-7.70); Neutrophils % (A) 42.7 %; Platelet Count 231 X 10*3/uL (140-440); RBC 5.07 X 10*6/uL (4.10-5.20); RDW 13.7 % (11.5-14.5); WBC 2.85 X 10*3/uL (4.50-10.00)
[2022-07-07 11:06] LABS: ALT 24 U/L (8-44); AST 22 U/L (13-35); African American GFR (CKD) 60.1 (60.0-200.0); Albumin 4.1 g/dL (3.8-4.9); Albumin/Globulin Ratio 1.65 (1.60-3.17); Alkaline Phosphatase 61 U/L (41-126); Calcium 9.5 mg/dL (8.7-10.3); Carbon Dioxide 22.7 mmol/L (20.0-27.5); Chloride 109 mmol/L (96-109); Chol/HDL Ratio 4.15 Ratio; Globulin 2.5 g/dL (1.6-3.3); Glucose 115 mg/dL (70-110); Iron 82 ug/dL (50-170); LDL Cholesterol,Calculated 127.9 mg/dL (0.0-131.0); Non-African American GFR(CKD) 51.9 (60.0-200.0); Potassium 4.2 mmol/L (3.5-5.5); Sodium 142 mmol/L (135-145); Total Protein 6.6 g/dL (6.2-8.2); Uric Acid 3.9 mg/dL (2.9-7.7)
[2022-07-07 11:18] LABS: % Iron Saturation 21.78 (12.00-45.00); Total Iron Binding Capacity 375 ug/dL (228-460)
== END | disposition home or self-care (01) ==
LOC: LABWHC1 07:14
PROVIDERS: ATTEND Family Medicine
DX: E78.2 Mixed hyperlipidemia (principal)
CPT/HCPCS: 36415; 80053; 80061; 82306; 82607; 82728; 82746; 83036; 83540; 83550; 84443; 84550; 85025

== ENCOUNTER → 2022-08-31 | Outpatient (CLI) | payer OTHER ==
--- NOTE | 2022-08-31 18:28 | CT ---
EXAMINATION TYPE: CT chest wo con DATE OF EXAM: 08/31/2022 COMPARISON: 03/17/2021 HISTORY: COPD CT DLP: 579 mGycm, Automated exposure control for dose reduction was used. CONTRAST: Performed injected with 0 mL of Isovue 300. TECHNIQUE: Axial images were obtained at 5 mm thick sections. Reconstructed images are reviewed on [email or web address] computer in the coronal plane. FINDINGS: Portion of the thyroid visualized is normal. No suspicious lung nodules or focal infiltrates are present. Emphysematous changes are present diffus mike greater in the upper lung mortensen. No enlarged mediastinal or hilar adenopathy is evident. The ascending aorta diameter at the level o f the main pulmonary artery is 3.5 cm. The main pulmonary artery diameter at the bifurcation is 3.7 cm. Minimal pericardial effusion is present. Limited CT sections are obtained through the upper abdomen. Gallstone is present. IMPRESSIONS: 1. Emphysema. 2. Minimal pericardial effusion. 3. Cholelithiasis.
== END | disposition home or self-care (01) ==
LOC: RADCTMAIN 08:35
PROVIDERS: ATTEND Family Medicine
DX: I31.39 Other pericardial effusion (noninflammatory) (principal); J43.9 Emphysema, unspecified; R14.0 Abdominal distension (gaseous); K80.20 Calculus of gallbladder without cholecystitis without obstruction
CPT/HCPCS: 71250

== ENCOUNTER → 2022-09-07 | Outpatient (CLI) | payer OTHER ==
[2022-09-07 18:33] LABS: Immunoglobulin E 51.9 IU/mL (0.00-114.00)
[2022-09-08 13:45] LABS: Latex IgE Class CLASS 0
[2022-09-08 13:46] LABS: Alt. alternata IgE Class CLASS 0; Alternaria alternata IgE <0.10 kU/L (<0.10); Asperg. fumagatus IgE <0.10 kU/L (<0.10); Asperg. fumagatus IgE Class CLASS 0; Candida albicans IgE Class CLASS 0; Clad herbarum IgE <0.10 kU/L (<0.10); Clad herbarum IgE Class CLASS 0; Mucor racemosus IgE <0.10 kU/L (<0.10); Mucor racemosus IgE Class CLASS 0; Penicillium chrysogenum IgE <0.10 kU/L (<0.10); Penicillium chrysogenum IgE Cl CLASS 0
[2022-09-08 14:17] LABS: Alpha 1 Anti-Trypsin 125 mg/dL (90 - 200)
== END | disposition home or self-care (01) ==
LOC: LABWHC1 08:21
PROVIDERS: ATTEND Internal Medicine Sleep Medicine
DX: E88.01 Alpha-1-antitrypsin deficiency (principal); B44.81 Allergic bronchopulmonary aspergillosis
CPT/HCPCS: 36415; 82103; 82104; 82785; 86001; 86003; 86606; 86609

== ENCOUNTER → 2022-09-15 | Outpatient (CLI) | payer OTHER ==
--- NOTE | 2022-09-15 08:36 | US ---
EXAMINATION TYPE: US pelvic complete DATE OF EXAM: 09/15/2022 COMPARISON: CT March 17, 2021 CLINICAL INDICATION: Female, 62 years old with history of R14.0 R06.2 J43.9; Abdominal bloating x cou ple months TECHNIQUE: . Transabdominal sonographic images of the pelvis were acquired. Patient refused transv aginal exam. Date of LMP: 15 years ago EXAM MEASUREMENTS: Uterus: 5.5 x 2.6 x 3.0 cm Endometrial Stripe: not seen Right Ovary: not seen Left Ovary: not seen 1. Uterus: anteverted 2. Endometrium: not visualized well 3. Right Ovary: not seen 4. Left Ovary: not seen 5. Bilateral Adnexa: wnl 6. Posterior cul-de-sac: wnl Anteverted small size uterus correlates with patient's postmenopausal age. Endometrial stripe not wel l seen with certainty. No free fluid. Neither ovary clearly seen. No suspicious adnexal mass. IMPRESSION: Suboptimal study without transvaginal investigation. No concerning pelvic mass or free fl uid noted.
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
== END | disposition home or self-care (01) ==
LOC: RADUSWWP 07:36
PROVIDERS: ATTEND Family Medicine
DX: K80.20 Calculus of gallbladder without cholecystitis without obstruction (principal); K76.89 Other specified diseases of liver; R14.0 Abdominal distension (gaseous); R06.2 Wheezing; J43.9 Emphysema, unspecified
CPT/HCPCS: 76700; 76856

== ENCOUNTER → 2022-12-13 | Outpatient (CLI) | payer OTHER ==
[2022-12-13 15:24] LABS: Basophils # (A) 0.04 X 10*3/uL (0.00-0.10); Basophils % (A) 1.1 %; Eosinophils # (A) 0.05 X 10*3/uL (0.04-0.35); Eosinophils % (A) 1.3 %; HCT 46.9 % (37.2-46.3); Lymphocytes # (A) 1.11 X 10*3/uL (0.90-5.00); Lymphocytes % (A) 29.9 %; MCH 30.4 pg (27.0-32.0); MCHC 34.1 d/dL (32.0-37.0); Mean Platelet Volume 10.2 FL (9.5-12.2); Monocytes # (A) 0.49 X 10*3/uL (0.20-1.00); Monocytes % (A) 13.2 %; NRBC Per 100 WBC 0 X 10*3/uL (0.00-0.01); Neutrophils # (A) 2.01 X 10*3/uL (1.80-7.70); Neutrophils % (A) 54.2 %; Platelet Count 246 X 10*3/uL (140-440); RBC 5.27 X 10*6/uL (4.10-5.20); RDW 13.2 % (11.5-14.5); WBC 3.71 X 10*3/uL (4.50-10.00)
[2022-12-13 21:09] LABS: Alternaria alternata IgE <0.10 kU/L; Aspergillus fumagatus IgE <0.10 kU/L; Cat Epith & Dander IgE <0.10 kU/L; Cockroach IgE <0.10 kU/L; Dermato. farinae IgE <0.10 kU/L; Dog Dander IgE 0.13 kU/L; Elm IgE <0.10 kU/L; Maple (Box Elder) IgE <0.10 kU/L; Oak IgE <0.10 kU/L; Ragweed,Common IgE <0.10 kU/L; Red Top (Bentgrass) IgE <0.10 kU/L
[2022-12-13 21:43] LABS: Immunoglobulin E 49.9 IU/mL (0.00-114.00)
[2022-12-14 01:24] LABS: Birch IgE <0.10 kU/L; Cladosporian herbarum IgE <0.10 kU/L
[2022-12-19 14:17] LABS: Alpha 1 Anti-Trypsin 131 mg/dL (90 - 200)
[2022-12-19 21:38] LABS: Alternaria Alternata IgG 5.3 mcg/mL (<13.6); Aspergillus fumigatus IgG NOT DETECTED (NOT DETECTED); Aureobasidium pullulans IgG 5.7 mcg/mL (<13.6); Cladosporium herbarium IgG 11.9 mcg/mL (<14.7); Phoma ssp. IgG 5.7 mcg/mL (<6.6); Saccaharomospora viridis NOT DETECTED (NOT DETECTED); Saccaharopoly. rectivirgula NOT DETECTED (NOT DETECTED)
== END | disposition home or self-care (01) ==
LOC: LABWHC1 10:20
PROVIDERS: ATTEND Internal Medicine Pulmonary Disease
DX: J45.50 Severe persistent asthma, uncomplicated (principal); J44.9 Chronic obstructive pulmonary disease, unspecified; R05.9 Cough, unspecified; R06.02 Shortness of breath; R53.83 Other fatigue
CPT/HCPCS: 36415; 82103; 82104; 82785; 85025; 86001; 86003; 86606; 86609

== ENCOUNTER → 2023-03-13 | Outpatient (CLI) | payer OTHER ==
[2023-03-13 08:30] VITALS: BP 109/72; PULSE 71; RESP 18; TEMP 97.8
--- NOTE | 2023-03-13 08:38 | P.HPOB ---
History of Present Illness H&P Date: 03/13/23 Chief Complaint: The patient is here for her routine gynecologic exam and ma mmogram. This is a 63-year-old 011 with an LMP of 2005. The patient is without gynecologic complaints and denies any postmenopausal bleeding. Her last Pap smear on 02/15/2022 was negative with a positive high-risk HPV test(-16, -18). Review of Systems The patient has gained 4 pounds over the last year. She denies respiratory, cardiac, or G.I. problems. Past Medical History Past Medical History: COPD, Diabetes Mellitus, Hyperlipidemia Additional Past Medical History / Comment(s): HEPATITIS C in the past. Gallstone. Borderline type 2 diabetes. History of drug abuse s/p rehab. 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 She was treated for syphilis in 2014. History of Any Multi-Drug Resistant Organisms: None Reported Past Surgical History: Tubal Ligation Additional Past Surgical History / Comment(s): surgery for ectopic pregnancyx2. Colonoscopy 2017(next after 10yr). Past Anesthesia/Blood Transfusion Reactions: No Reported Reaction Past Psychological History: No Psychological Hx Reported Smoking Status: Former smoker Past Alcohol Use History: None Reported Additional Past Alcohol Use History / Comment(s): quit smoking 2015, smoked for 40 yrs Past Drug Use History: Cocaine, Heroin, IV Drug Use Additional Drug Use History / Comment(s): none since 2015. Additional History: The patient is single and lives with her boyfriend since 2020. She works at [employer] but is looking for a new job. - Past Family History Mother Family Medical History: No Reported History Additional Family Medical History / Comment(s): Maternal grandmother had ovarian cancer. Sister(s) Family Medical History: Cancer, Diabetes Mellitus Additional Family Medical History / Comment(s): One sister had some type of cancer but she is unsure of the type. Another sister has diabetes. Medications and Allergies Home Medications Medication Instructions Recorded Confirmed Type Albuterol Nebulized [Ventolin 2.5 mg INHALATION RT-TID PRN 03/17/21 03/13/23 History Nebulized] Fenofibrate 160 mg PO DAILY 03/17/21 03/13/23 History HYDROcodone/APAP 10-325MG [[place] 1 tab PO BID PRN 03/17/21 03/13/23 History 10-325] Ipratropium-Albuterol Nebulize 3 ml INHALATION RT-TID PRN 03/17/21 03/13/23 History [Duoneb 0.5 mg-3 mg/3 ml Soln] Omeprazole 20 mg PO DAILY 03/17/21 03/13/23 History Budesonide/Glycopyr/Formoterol 1 puff INHALATION DIRECTED PRN 02/15/22 03/13/23 History [Breztri Aerosphere Inhaler] Cephalexin [Keflex] 500 mg PO DAILY 02/15/22 03/13/23 History Fluticasone/Umeclidin/Vilanter 1 puff INHALATION DAILY 03/13/23 03/13/23 History [[place] Ellipta 100-62.5-25] Allergies Allergy/AdvReac Type Severity Reaction Status Date / Time No Known Allergies Allergy Verified 03/13/23 07:56 Exam Vital Signs Temp Pulse Resp BP Pulse Ox 03/13/23 07:57 97.8 F 71 18 109/72 96 Intake and Output 03/12/23 03/13/23 03/13/23 22:59 06:59 14:59 Other: Weight 92.986 kg Height 5 feet 8 inches, weight 205 pounds, BMI 31.2. This is a well-developed well-nourished black female who is alert and oriented times 3 in no acute distress. HEENT: Within normal limits. NECK: Supple without mass or thyromegaly. CHEST AND LUNGS: Clear to auscultation. HEART: Regular rate and rhythm. BREASTS: Are without mass or discharge. AXILLARY EXAM: Negative for adenopathy. BACK: Negative for CVA tenderness. ABDOMEN: Soft, nontender, without palpable masses. PELVIC EXAM: Normal external genitalia with mild atrophy. Cervix and vagina appear normal with mild atrophy. There is no unusual discharge. There is no evidence of prolapse. The uterus is midposition, nongravid size and nontender. There are no palpable adnexal masses or tenderness. RECTAL EXAM: Rectovaginal exam is negative for mass or tenderness and is negative for occult blood. EXTREMITIES: Nontender. Pelvic ultrasound done on 09/15/2022 as ordered by her PCP was unremarkable. IMPRESSION: 1. 63-year-old menopausal female with normal gynecologic exam. 2. Positive high-risk HPV testing(-16, -18) with negative Pap smear on 02/15/2022. 3. History of osteopenia. PLAN: 1. Pap smear cotest was performed. 2. Self breast awareness was discussed with the patient. We have also discussed symptoms associated with inflammatory breast cancer. 3. Screening mammogram will be done today. 4. Osteoporosis prevention was discussed. I have stressed the importance of adequate calcium, vitamin D and regular exercise. Recommended amounts of calcium and vitamin D were also discussed. I recommended repeating the bone density test since her last one was in 2020. The order slip was given to the patient for this. 5. She was advised to return in one year for her annual well woman exam.
--- NOTE | 2023-03-14 09:44 | MM ---
Reason for Exam: Screening (asymptomatic). Last screening mammogram was performed 12 month(s) ago. Patient History: Menarche at age 14. First Full-Term at age 22. Postmenopausal. Patient used Hormonal Contraceptives for 4 years. Risk Values: Elvira 5 year model risk: 1.5%. NCI Lifetime model risk: 6.5%. Prior Study Comparison: 12/30/2019 Bilateral Screening Mammogram, [facility]. 02/01/2021 Bilateral Screening Mammogram, [facility]. 02/15/2022 Bilateral MG screening mammo w CAD, [facility]. Tissue Density: There are scattered fibroglandular densities. Findings: Analyzed By CAD. There is no suspicious group of microcalcifications or new suspicious mass. Overall Assessment: Negative, BI-RAD 1 Management: Screening Mammogram of both breasts in [address] [facility] will attempt to contact patient to return for supplemental views and ultrasound if indicated. Patient should continue monthly self-breast exams. A clinical breast exam by your physician is recommended on an annual basis. This exam should not preclude additional follow-up of suspicious palpable abnormalities. Note on Elvira scores and lifetime risk: 1. A Elvira score greater than 3% is considered moderate risk. If this is the case, consider specialist referral to assess eligibility for a risk reducing agent. 2. If overall lifetime risk for the development of breast cancer is 20% or higher, the patient may qualify for future screening with alternating mammogram and breast MRI. Electronically signed and approved by: Trent Broderick DO
== END ==
LOC: WWCWWP 07:50
PROVIDERS: ATTEND Obstetrics & Gynecology
DX: M85.80 Other specified disorders of bone density and structure, unspecified site (principal); Z12.31 Encounter for screening mammogram for malignant neoplasm of breast; Z78.0 Asymptomatic menopausal state; E11.9 Type 2 diabetes mellitus without complications; J44.9 Chronic obstructive pulmonary disease, unspecified; E78.5 Hyperlipidemia, unspecified; Z11.51 Encounter for screening for human papillomavirus (HPV); Z87.891 Personal history of nicotine dependence
CPT/HCPCS: 77063; 77067

== ENCOUNTER → 2023-05-04 | Outpatient (CLI) | payer OTHER ==
[2023-05-04 15:23] LABS: Basophils # (A) 0.05 X 10*3/uL (0.00-0.10); Basophils % (A) 1.6 %; Eosinophils # (A) 0.19 X 10*3/uL (0.04-0.35); Eosinophils % (A) 5.9 %; HCT 50.5 % (37.2-46.3); HGB 16.1 g/dL (12.0-15.0); Lymphocytes # (A) 1.02 X 10*3/uL (0.90-5.00); Lymphocytes % (A) 31.8 %; MCH 29.5 pg (27.0-32.0); MCHC 31.9 g/dL (32.0-37.0); MCV 92.7 FL (80.0-97.0); Mean Platelet Volume 11.2 FL (9.5-12.2); Monocytes # (A) 0.39 X 10*3/uL (0.20-1.00); Monocytes % (A) 12.1 %; NRBC Per 100 WBC 0 X 10*3/uL (0.00-0.01); Neutrophils # (A) 1.54 X 10*3/uL (1.80-7.70); Platelet Count 174 X 10*3/uL (140-440); RBC 5.45 X 10*6/uL (4.10-5.20); RDW 13.3 % (11.5-14.5); WBC 3.21 X 10*3/uL (4.50-10.00)
[2023-05-04 17:07] LABS: ALT 22 U/L (8-44); AST 24 U/L (13-35); Albumin 4.4 g/dL (3.8-4.9); Albumin/Globulin Ratio 1.42 Ratio (1.60-3.17); Alkaline Phosphatase 59 U/L (41-126); BUN/Creat Ratio 21.36 Ratio (12.00-20.00); Blood Urea Nitrogen 23.5 mg/dL (9.0-27.0); Calcium 9.8 mg/dL (8.7-10.3); Carbon Dioxide 18.9 mmol/L (21.6-31.8); Chloride 104 mmol/L (96-109); Chol/HDL Ratio 4.66 Ratio; Globulin 3.1 g/dL (1.6-3.3); Glucose 83 mg/dL (70-110); LDL Cholesterol,Calculated 139.8 mg/dL (0.0-131.0); Potassium 4.5 mmol/L (3.5-5.5); Sodium 139 mmol/L (135-145); Total Bilirubin 0.4 mg/dL (0.3-1.2); Total Protein 7.5 g/dL (6.2-8.2); Uric Acid 3.8 mg/dL (2.9-7.7); VLDL Calculation 14.88 mg/dL (5.00-40.00)
== END | disposition home or self-care (01) ==
LOC: LABWHC1 09:46
PROVIDERS: ATTEND Family Medicine
DX: E11.65 Type 2 diabetes mellitus with hyperglycemia (principal); E78.2 Mixed hyperlipidemia
CPT/HCPCS: 36415; 80053; 80061; 83036; 84550; 85025

== ENCOUNTER → 2023-05-04 | Outpatient (CLI) | payer OTHER ==
--- NOTE | 2023-05-04 18:12 | BD ---
EXAMINATION TYPE: Axial Bone Density DATE OF EXAM: 05/04/2023 CLINICAL HISTORY: 63 years old Female. ICD-10 CODE: Z78.0 POSTMENOPAUSAL Height: Weight: FRAX RISK QUESTIONS: Glucocorticoids (More than 3mos): yes (Ex: prednisone, prednisolone, methylprednisolone, dexamethasone, and hydrocortisone). History of Fracture in Adulthood: yes 3. Menopause before 45: yes, at 45 RISK FACTORS HISTORY OF: nothing to note here MEDICATIONS: nothing to note here except vit D and calcium EXAM MEASUREMENTS: Bone mineral densitometry was performed using the [employer] System. Bone mineral density as measured about the Lumbar spine is: ----- L1-L4(G/cm2): 1.017 T Score Values are as follows: ----- L1: -1.0 ----- L2: -0.7 ----- L3: -2.1 ----- L4: -1.7 ----- L1-L4: -1.4 Z Score Values are as follows: ----- L1: -1.2 ----- L2: -1.0 ----- L3: -2.3 ----- L4: -1.9 ----- L1-L4: -1.6 Bone mineral density has: Decreased -1.1% since study of: 02.18.2021 Bone mineral density about the R hip (g/cm2): 0.756 Bone mineral density about the L hip (g/cm2): 0.795 T Score values are as follows: -----R Neck: -1.9 -----L Neck: -2.0 -----R Total: -2.0 -----L Total: -1.7 Z Score values are as follows: -----R Neck: -2.1 -----L Neck: -2.2 -----R Total: -2.6 -----L Total: -2.3 Bone mineral density has: Decreased -1.1% since study of: 02.18.2021 FRAX%s: The graph provided illustrates a 11.8% chance for a major osteoporotic fx and a 1.8% chance f or the hips probability for fx in 10 years time. IMPRESSION: Osteopenia (T Score between -2.5 and -1). There is slightly increased risk of fracture and the patient may be considered for treatment. Re-Screen 2-5 years. NOTE: T-SCORE=SD OF THE YOUNG ADULT MEAN.
== END | disposition home or self-care (01) ==
LOC: RADBDWWP 12:41
PROVIDERS: ATTEND Obstetrics & Gynecology
DX: M85.89 Other specified disorders of bone density and structure, multiple sites (principal); Z78.0 Asymptomatic menopausal state
CPT/HCPCS: 77080

== ENCOUNTER → 2023-05-25 | Outpatient (CLI) | payer OTHER ==
--- NOTE | 2023-05-25 11:02 | CT ---
EXAMINATION TYPE: CT abdomen pelvis wo con CT DLP: 957.3 mGycm, Automated exposure control for dose reduction was used. DATE OF EXAM: 05/25/2023 9:54 AM COMPARISON: 03/17/2021 CLINICAL INDICATION:Female, 63 years old with history of E78.2,R76.8 OTHER SPECIFIED ABNORMAL IMMUNOL OGICAL; hyperlipidemia TECHNIQUE: Axial CT abdomen pelvis wo con;Sagittal and coronal reformats were created on a separate workstation. Contrast used: mL of , (none if empty) Oral contrast used: with Oral Contrast (none if empty) FINDINGS: LOWER CHEST: Unremarkable ABDOMEN LIVER: Diffusely hypoattenuating parenchyma. GALLBLADDER AND BILE DUCTS: Gallstone present in the color fundus. PANCREAS: Unremarkable. SPLEEN: Unremarkable. ADRENAL GLANDS: Unremarkable. KIDNEYS AND URETERS: No evidence of hydronephrosis or renal calculus. The ureters are unremarkable. PELVIS BLADDER: Unremarkable REPRODUCTIVE: Unremarkable. ABDOMEN & PELVIS STOMACH AND BOWEL: No evidence of bowel obstruction. PERITONEUM/RETROPERITONEUM: No evidence of pneumoperitoneum or free fluid. VASCULATURE: Mild atherosclerotic calcifications are present throughout the abdominal aorta and its b ranches. No evidence of aortic aneurysm. MUSCULOSKELETAL: No acute osseous abnormalities. Mild disc degeneration changes are present throughou t the thoracolumbar spine. LYMPH NODES: No gross evidence for lymphadenopathy. SOFT TISSUE/ABDOMINAL WALL: Unremarkable IMPRESSION: 1. No evidence for acute abdominal process. 2. Hepatic steatosis. 3. Cholelithiasis.
== END | disposition home or self-care (01) ==
LOC: RADCTMAIN 07:57
PROVIDERS: ATTEND Family Medicine
DX: R76.8 Other specified abnormal immunological findings in serum (principal); E78.2 Mixed hyperlipidemia; K76.0 Fatty (change of) liver, not elsewhere classified; K80.20 Calculus of gallbladder without cholecystitis without obstruction
CPT/HCPCS: 74176

== ENCOUNTER 2023-07-10 18:15 | Emergency (ER) | payer OTHER ==
[2023-07-10 18:46] VITALS: TEMP 97.8
--- NOTE | 2023-07-10 19:32 | ED ---
Extremity Problem HPI - General Source: patient Mode of arrival: ambulatory Limitations: no limitations <Mary Hassan - Last Filed: 07/10/23 19:31> <Mic Horn - Last Filed: 07/10/23 21:20> - General Chief complaint: Extremity Problem,Nontraumatic Stated complaint: leg/hip pain Time Seen by Provider: 07/10/23 19:32 - History of Present Illness Initial comments: 63-year-old female presenting with chief complaint of left hip and upper thigh pain. This has been ongoing for about 2 weeks. No known injury or trauma. The pain does not extend down past the level of the knee. Worse with change of position and weightbearing. (Mary Hassan) - Related Data Home Medications Medication Instructions Recorded Confirmed Albuterol Nebulized [Ventolin 2.5 mg INHALATION RT-TID PRN 03/17/21 03/13/23 Nebulized] Fenofibrate 160 mg PO DAILY 03/17/21 03/13/23 HYDROcodone/APAP 10-325MG [[place] 1 tab PO BID PRN 03/17/21 03/13/23 10-325] Ipratropium-Albuterol Nebulize 3 ml INHALATION RT-TID PRN 03/17/21 03/13/23 [Duoneb 0.5 mg-3 mg/3 ml Soln] Omeprazole 20 mg PO DAILY 03/17/21 03/13/23 Budesonide/Glycopyr/Formoterol 1 puff INHALATION DIRECTED PRN 02/15/22 03/13/23 [Breztri Aerosphere Inhaler] Cephalexin [Keflex] 500 mg PO DAILY 02/15/22 03/13/23 Fluticasone/Umeclidin/Vilanter 1 puff INHALATION DAILY 03/13/23 03/13/23 [Trelegy Ellipta 100-62.5-25] Previous Rx's Medication Instructions Recorded HYDROcodone/APAP 5-325MG [[place] 1 tab PO Q4HR PRN 3 Days #18 tab 07/10/23 5-325] predniSONE 60 mg PO DAILY #30 tab 07/10/23 Allergies Allergy/AdvReac Type Severity Reaction Status Date / Time No Known Allergies Allergy Verified 03/13/23 07:56 Review of Systems ROS Other: All systems not noted in ROS Statement are negative. <Mary Hassan - Last Filed: 07/10/23 19:31> ROS Other: All systems not noted in ROS Statement are negative. <Mic Horn - Last Filed: 07/10/23 21:20> ROS Statement: Those systems with pertinent positive or pertinent negative responses have been documented in the HPI. Past Medical History Past Medical History: COPD, Diabetes Mellitus, Hyperlipidemia Additional Past Medical History / Comment(s): HEPATITIS C in the past. Gallstone. Borderline type 2 diabetes. History of drug abuse s/p rehab. 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 She was treated for syphilis in 2014. History of Any Multi-Drug Resistant Organisms: None Reported Past Surgical History: Tubal Ligation Additional Past Surgical History / Comment(s): surgery for ectopic pregnancyx2. Colonoscopy 2017(next after 10yr). Past Anesthesia/Blood Transfusion Reactions: No Reported Reaction Past Psychological History: No Psychological Hx Reported Smoking Status: Former smoker Past Alcohol Use History: None Reported Past Drug Use History: Cocaine, Heroin, IV Drug Use - Past Family History Mother Family Medical History: No Reported History Additional Family Medical History / Comment(s): Maternal grandmother had ovarian cancer. Sister(s) Family Medical History: Cancer, Diabetes Mellitus Additional Family Medical History / Comment(s): One sister had some type of cancer but she is unsure of the type. Another sister has diabetes. <Mary Hassan - Last Filed: 07/10/23 19:31> General Exam Limitations: no limitations <Mary Hassan - Last Filed: 07/10/23 19:31> - General Exam Comments Initial Comments: Visual Physical Exam Vital signs reviewed General: Well-appearing, nontoxic, no acute distress. Head: Normocephalic, atraumatic Eyes: PERRLA, EOMI ENT: Airway patent Chest: Nonlabored breathing Skin: No visual rash, normal skin tone Neuro: Alert and oriented 3 Musculoskeletal: No gross abnormalities (Mary Hassan) Course Vital Signs 07/10/23 18:35 Temperature 97.8 F Pulse Rate 80 Respiratory 16 Rate Blood Pressure 149/88 O2 Sat by Pulse 98 Oximetry Medical Decision Making <Mary Hassan - Last Filed: 07/10/23 19:31> - Medical Decision Making I performed the quick note portion of this visit, electronically signed Mary Hassan PA-C (Mary Hassan) Disposition <Mary Hassan - Last Filed: 07/10/23 19:31> Is patient prescribed a controlled substance at d/c from ED?: Yes When asked, does pt state using other controlled substances?: No If prescribed controlled substance>3 days was MAPS reviewed?: Prescribed <3 Days If opioid is for acute pain is fill amount 7 days or less?: Yes If Rx opioid, was Start Talking consent form obtained?: Yes <Mic Horn - Last Filed: 07/10/23 21:20> Clinical Impression: Arthralgia of hip, left Disposition: HOME SELF-CARE Condition: Good Instructions (If sedation given, give patient instructions): Hip Pain (ED) Prescriptions: HYDROcodone/APAP 5-325MG [[place] 5-325] 1 tab PO Q4HR PRN 3 Days #18 tab PRN Reason: Pain predniSONE 60 mg PO DAILY #30 tab Referrals: Beal Burch MD [Primary Care Provider] - 1-2 days Josesito Espinoza DO [Doctor of Osteopathic Medicine] - 1-2 days
[2023-07-10] MEDS: DEXAMETHASONE SOD PHOSPHATE 10 MG/ML 1 ML VIAL IM STA (20:00)
[2023-07-10] MEDS: KETOROLAC 15 MG/ML 1 ML VIAL IM STA (20:01)
[2023-07-10] MEDS: ORPHENADRINE 30 MG/ML 2 ML VIAL IM STA (20:02)
[2023-07-10] MEDS: MORPHINE SULFATE 4 MG/ML SYRINGE IM STA (20:13)
--- NOTE | 2023-07-10 20:45 | XR ---
EXAMINATION TYPE: XR Hip LT and AP Pelvis DATE OF EXAM: 07/10/2023 7:48 PM CLINICAL INDICATION:Female, 63 years old with history of pain; COMPARISON: None. TECHNIQUE: XR Hip LT and AP Pelvis; hip was examined in the frontal and lateral projections and a AP pelvis. FINDINGS: No evidence for acute process, joint dislocation or significant soft tissue swelling. Osteo phyte formation of the superior acetabulum of the hip. IMPRESSION: 1. No evidence for acute process. 2. Mild hip osteoarthrosis.
[2023-07-10] MEDS: HYDROmorphone 0.5 MG/0.5 ML SYRINGE IVP STA (21:27)
[2023-07-10 21:54] VITALS: BP 121/81; PULSE 76; RESP 18
== END 2023-07-10 21:34 | disposition home or self-care (01) ==
LOC: EC 18:15
DX: M25.552 Pain in left hip (principal); F14.90 Cocaine use, unspecified, uncomplicated; Z87.891 Personal history of nicotine dependence
CPT/HCPCS: 73502; 99284; 96374; 96372 ×4; J2270; J1100; J2360; J1885; J1170

== ENCOUNTER → 2023-09-04 | Outpatient (CLI) | payer OTHER ==
[2023-09-04 12:44] LABS: BUN/Creat Ratio 15.42 Ratio (12.00-20.00); Blood Urea Nitrogen 18.5 mg/dL (9.0-27.0); Chloride 105 mmol/L (96-109); Chol/HDL Ratio 3.58 Ratio; Glucose 94 mg/dL (70-110); LDL Cholesterol,Calculated 86.5 mg/dL (0.0-131.0); Potassium 4.4 mmol/L (3.5-5.5); Sodium 138 mmol/L (135-145); Uric Acid 4.5 mg/dL (2.9-7.7); VLDL Calculation 16.56 mg/dL (5.00-40.00)
[2023-09-04 12:45] LABS: ALT 22 U/L (8-44); AST 27 U/L (13-35); Albumin 4.3 g/dL (3.8-4.9); Albumin/Globulin Ratio 1.79 Ratio (1.60-3.17); Alkaline Phosphatase 51 U/L (41-126); Calcium 9.4 mg/dL (8.7-10.3); Carbon Dioxide 19.5 mmol/L (21.6-31.8); Globulin 2.4 g/dL (1.6-3.3); Total Bilirubin 0.5 mg/dL (0.3-1.2); Total Protein 6.7 g/dL (6.2-8.2)
[2023-09-04 23:01] LABS: Microalbumin Creatinine Ratio <15 mg/g Cr (0-30); Urine Creatinine 77.7 mg/dL (28.0-217.0)
== END | disposition home or self-care (01) ==
LOC: LABWHC1 07:05
PROVIDERS: ATTEND Family Medicine
DX: Z09 Encounter for follow-up examination after completed treatment for conditions other than malignant neoplasm (principal); M25.552 Pain in left hip; E78.2 Mixed hyperlipidemia; E11.65 Type 2 diabetes mellitus with hyperglycemia; Z71.3 Dietary counseling and surveillance; Z71.82 Exercise counseling
CPT/HCPCS: 36415; 80053; 80061; 82043; 82306; 82570; 84443; 84550

== ENCOUNTER → 2023-12-31 | Outpatient (CLI) | payer OTHER ==
[2023-12-31 15:54] LABS: ALT 27 U/L (8-44); AST 28 U/L (13-35); Albumin 4.4 g/dL (3.8-4.9); Albumin/Globulin Ratio 1.57 Ratio (1.60-3.17); Alkaline Phosphatase 55 U/L (41-126); Amylase 69 U/L (23-121); BUN/Creat Ratio 17.36 Ratio (12.00-20.00); Blood Urea Nitrogen 19.1 mg/dL (9.0-27.0); Calcium 9.8 mg/dL (8.7-10.3); Carbon Dioxide 20.4 mmol/L (21.6-31.8); Chloride 106 mmol/L (96-109); Chol/HDL Ratio 4.42 Ratio; Globulin 2.8 g/dL (1.6-3.3); Glucose 85 mg/dL (70-110); LDL Cholesterol,Calculated 124.8 mg/dL (0.0-131.0); Lipase 20 U/L (14-63); Potassium 4.3 mmol/L (3.5-5.5); Sodium 138 mmol/L (135-145); Total Bilirubin 0.5 mg/dL (0.3-1.2); Total Protein 7.2 g/dL (6.2-8.2); VLDL Calculation 16.82 mg/dL (5.00-40.00)
[2023-12-31 16:48] LABS: Basophils # (A) 0.03 X 10*3/uL (0.00-0.10); Basophils % (A) 0.9 %; Eosinophils # (A) 0.07 X 10*3/uL (0.04-0.35); Eosinophils % (A) 2.1 %; HCT 49.2 % (37.2-46.3); HGB 16.7 g/dL (12.0-15.0); Lymphocytes # (A) 1.11 X 10*3/uL (0.90-5.00); Lymphocytes % (A) 33.9 %; MCH 30.5 pg (27.0-32.0); MCHC 33.9 g/dL (32.0-37.0); MCV 89.8 FL (80.0-97.0); Mean Platelet Volume 10.3 FL (9.5-12.2); Monocytes # (A) 0.48 X 10*3/uL (0.20-1.00); Monocytes % (A) 14.7 %; NRBC Per 100 WBC 0 X 10*3/uL (0.00-0.01); Neutrophils # (A) 1.57 X 10*3/uL (1.80-7.70); Neutrophils % (A) 48.1 %; Platelet Count 238 X 10*3/uL (140-440); RBC 5.48 X 10*6/uL (4.10-5.20); RDW 13.5 % (11.5-14.5); WBC 3.27 X 10*3/uL (4.50-10.00)
== END | disposition home or self-care (01) ==
LOC: LABWHC1 10:28
PROVIDERS: ATTEND Family Medicine
DX: Z09 Encounter for follow-up examination after completed treatment for conditions other than malignant neoplasm (principal); S82.891D Other fracture of right lower leg, subsequent encounter for closed fracture with routine healing; E78.2 Mixed hyperlipidemia; R19.7 Diarrhea, unspecified; X58.XXXD Exposure to other specified factors, subsequent encounter
CPT/HCPCS: 36415; 80053; 80061; 82150; 82306; 82607; 82746; 83036; 83690; 84443; 84550; 85025

== ENCOUNTER → 2024-02-07 | Outpatient (CLI) | payer OTHER ==
--- NOTE | 2024-02-07 11:50 | CT ---
EXAMINATION TYPE: CT chest wo con DATE OF EXAM: 02/07/2024 COMPARISON: HISTORY: severe asthma and COPD CT DLP: 454.10 mGycm. Automated Exposure Control for Dose Reduction was Utilized. TECHNIQUE: CT scan of the thorax is performed without IV contrast. FINDINGS: LUNGS: The lungs are grossly clear, there is no concerning parenchymal mass or nodule identified. T here is no pleural effusion or pneumothorax seen. The tracheobronchial tree is patent. Severe emphysematous changes most marked involving the bilateral lobes. There is very mild interlobul ar septal thickening along the periphery of the lungs likely in the basis of mild pulmonary fibrosis. Favor UIP type. Biapical scarring. MEDIASTINUM: Lack of IV contrast is noted to limit evaluation for mediastinal and especially hilar ad enopathy. There are no definitive greater than 1 cm hilar or mediastinal lymph nodes. Small pericardi al effusion. Prominence the pulmonary trunk which can be associated with pulmonary artery hypertensio n measuring 3.2 cm. Aorta of normal caliber. There is mild atherosclerotic changes. There is calcific ation near the aortic valve. Minimal coronary artery calcification. OTHER: Cholelithiasis. Small hiatal hernia. Number reduced in attenuation relative to the spleen sugg estive of underlying hepatic steatosis. IMPRESSION: 1. Severe emphysematous changes most marked involving the bilateral upper lobes. 2. No acute intrathoracic process. 3. Cholelithiasis. Follow-up recommendations for incidental pulmonary nodules are per [employer]ion or [employer]. [facility], , 02/07/2024 11:48 AM
== END | disposition home or self-care (01) ==
LOC: RADCTMAIN 08:30
PROVIDERS: ATTEND Internal Medicine Pulmonary Disease
DX: J44.89 Other specified chronic obstructive pulmonary disease (principal); E66.9 Obesity, unspecified; K80.20 Calculus of gallbladder without cholecystitis without obstruction; J43.9 Emphysema, unspecified
CPT/HCPCS: 71250

== ENCOUNTER → 2024-03-18 | Outpatient (CLI) | payer OTHER ==
[2024-03-18 08:10] VITALS: BP 132/68; PULSE 69; RESP 17; TEMP 98.9
--- NOTE | 2024-03-18 08:52 | P.HPOB ---
History of Present Illness H&P Date: 03/18/24 Chief Complaint: The patient is here for her routine gynecologic exam and ma mmogram. This is a 64-year-old -0-1-1 with an LMP of 2006. The patient states she has been having more difficulty achieving orgasm. She denies problems with sex drive or discomfort with intercourse. She is otherwise without gynecologic complaints and denies any postmenopausal bleeding. Her Pap smear cotest in 2021 showed a negative Pap smear with positive high-risk HPV testing. Pap smear cotest on 03/13/2023 was negative. Review of Systems She has gained about 15 pounds over the past year. Respiratory: Occasional asthma symptoms. She denies cardiac or GI problems. Past Medical History Past Medical History: COPD, Diabetes Mellitus, Hyperlipidemia Additional Past Medical History / Comment(s): HEPATITIS C in the past. Gallstone. Borderline type 2 diabetes. History of drug abuse s/p rehab. 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 She was treated for syphilis in 2014. History of Any Multi-Drug Resistant Organisms: None Reported Past Surgical History: Tubal Ligation Additional Past Surgical History / Comment(s): surgery for ectopic pregnancyx2. Colonoscopy 2017(next after 10yr). Past Anesthesia/Blood Transfusion Reactions: No Reported Reaction Past Psychological History: No Psychological Hx Reported Smoking Status: Former smoker Past Alcohol Use History: None Reported Additional Past Alcohol Use History / Comment(s): quit smoking 2015, smoked for 40 yrs Past Drug Use History: Cocaine, Heroin, IV Drug Use Additional Drug Use History / Comment(s): none since 2015. Additional History: The patient is single and lives with her boyfriend since 2020. 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 - Past Family History Mother Family Medical History: No Reported History Additional Family Medical History / Comment(s): Maternal grandmother had ovarian cancer. Sister(s) Family Medical History: Cancer, Diabetes Mellitus Additional Family Medical History / Comment(s): One sister had some type of cancer but she is unsure of the type. Another sister has diabetes. Medications and Allergies Home Medications Medication Instructions Recorded Confirmed Type Fenofibrate 160 mg PO DAILY 03/17/21 03/18/24 History Omeprazole 20 mg PO DAILY 03/17/21 03/18/24 History Fluticasone/Umeclidin/Vilanter 1 puff INHALATION DAILY 03/13/23 03/18/24 History [Trelegy Ellipta 100-62.5-25] Ezetimibe [Zetia] 10 mg PO DAILY 03/18/24 03/18/24 History Meloxicam [Mobic] 15 mg PO DAILY 03/18/24 03/18/24 History Montelukast [Singulair] 10 mg PO DAILY 03/18/24 03/18/24 History sitaGLIPtin [Januvia] 25 mg PO DAILY 03/18/24 03/18/24 History traZODone HCL 150 mg PO DAILY 03/18/24 03/18/24 History Allergies Allergy/AdvReac Type Severity Reaction Status Date / Time No Known Allergies Allergy Verified 03/18/24 08:06 Exam Vital Signs Temp Pulse Resp BP Pulse Ox 03/18/24 08:08 98.9 F 69 17 132/68 94 L Intake and Output 03/17/24 03/18/24 03/18/24 22:59 06:59 14:59 Other: Weight 99.79 kg Height 5 feet 7 inches, weight 220 pounds, BMI 34.5. This is a well-developed well-nourished black female who is alert and oriented times 3 in no acute distress. HEENT: Within normal limits. NECK: Supple without mass or thyromegaly. CHEST AND LUNGS: Clear to auscultation. HEART: Regular rate and rhythm. BREASTS: Are without mass or discharge. AXILLARY EXAM: Negative for adenopathy. BACK: Negative for CVA tenderness. ABDOMEN: Soft, nontender, without palpable masses. PELVIC EXAM: Normal external genitalia with minimal atrophy. Cervix and vagina appear normal with minimal atrophy. There is no unusual discharge. There is no evidence of prolapse. The uterus is midposition, nongravid size and nontender. There are no palpable adnexal masses or tenderness. RECTAL EXAM: Rectovaginal exam is negative for mass or tenderness and is negative for occult blood. EXTREMITIES: Nontender. IMPRESSION: 1. 64-year-old menopausal female with normal gynecologic exam. 2. Some difficulty achieving orgasm without decreased libido. 3. History of osteopenia. 4. Positive high-risk HPV testing with a negative Pap smear in 2021 followed by a negative Pap smear cotest on 03/13/2023. PLAN: 1. Pap smear cotest was performed. If this is again negative, we will probably be able to space the Pap smears to a more normal interval. 2. Self breast awareness was discussed with the patient. We have also discussed symptoms associated with inflammatory breast cancer. 3. Screening mammogram will be done today. 4. Osteoporosis prevention was discussed. I have stressed the importance of adequate calcium, vitamin D and regular exercise. Recommended amounts of calcium and vitamin D were also discussed. Her last bone density test was done earlier this year. Will plan on repeating in about 2 years. 5. We have discussed her difficulty achieving orgasm. This may be a function of aging and time in the menopause. Suggestions were given. She denies dyspareunia or problems with vaginal dryness. Breasts thyroid screening with her PCP. Time I do not suggest any medications for this. 6. She was advised to return in one year for her annual well woman exam.
--- NOTE | 2024-03-19 17:02 | MM ---
Reason for Exam: Screening (asymptomatic). Last mammogram was performed 1 year(s) and 1 month(s) ago. Patient History: Menarche at age 14. First Full-Term at age 22. Postmenopausal. Patient used Hormonal Contraceptives for 4 years. Risk Values: Elvira 5 year model risk: 1.6%. NCI Lifetime model risk: 6.3%. Prior Study Comparison: 02/01/2021 Bilateral Screening Mammogram, [facility]. 02/15/2022 Bilateral MG screening mammo w CAD, [facility]. 03/13/2023 Bilateral MG 3D screening mammo w/cad, [facility]. Tissue Density: There are scattered areas of fibroglandular density. Findings: Analyzed By CAD. There is no suspicious group of microcalcifications or new suspicious mass in either breast. Overall Assessment: Negative, BI-RAD 1 Management: Screening Mammogram of both breasts in 1 year. . Patient should continue monthly self-breast exams. A clinical breast exam by your physician is recommended on an annual basis. This exam should not preclude additional follow-up of suspicious palpable abnormalities. Note on Elvira scores and lifetime risk: 1. A Elvira score greater than 3% is considered moderate risk. If this is the case, consider specialist referral to assess eligibility for a risk reducing agent. 2. If overall lifetime risk for the development of breast cancer is 20% or higher, the patient may qualify for future screening with alternating mammogram and breast MRI. [facility], , 03/19/2024 4:59 PM. Electronically signed and approved by: Dustin Hernandez M.D. Radiologist
== END ==
LOC: WWCWWP 07:53
PROVIDERS: ATTEND Obstetrics & Gynecology
DX: Z12.31 Encounter for screening mammogram for malignant neoplasm of breast (principal); R92.8 Other abnormal and inconclusive findings on diagnostic imaging of breast; R92.323 Mammographic fibroglandular density, bilateral breasts; M85.80 Other specified disorders of bone density and structure, unspecified site; Z78.0 Asymptomatic menopausal state; Z87.891 Personal history of nicotine dependence
CPT/HCPCS: 77063; 77067

== ENCOUNTER 2024-05-17 09:57 | Emergency (ER) | payer OTHER ==
[2024-05-17 10:08] VITALS: TEMP 99.4
[2024-05-17] MEDS: predniSONE 20 MG TAB PO STA (10:29)
--- NOTE | 2024-05-17 10:45 | XR ---
EXAMINATION TYPE: XR chest 2V DATE OF EXAM: 05/17/2024 10:40 AM COMPARISON: Chest radiographs from 03/15/2020, CT chest 02/07/2024 TECHNIQUE: XR chest 2V Frontal and lateral views of the chest. CLINICAL INDICATION:Female, 64 years old with history of Difficulty breathing ; FINDINGS: Lungs/Pleura: There is flattening of the diaphragm with increased lucency of the lungs. No evidence o f pneumothorax, pleural effusion or focal consolidation. Minimal right middle lobe atelectasis. Pulmonary vascularity: Unremarkable. Heart/mediastinum: Cardiomediastinal silhouette is stable. Bilateral pulmonary hilum prominence rela michelet to pulmonary arterial hypertension as seen on prior CT. Musculoskeletal: No acute osseous pathology. IMPRESSION: 1. No acute cardiopulmonary disease process. 2. COPD changes. [facility], , 05/17/2024 10:42 AM
--- NOTE | 2024-05-17 10:52 | ED ---
General Adult HPI - General Chief complaint: Upper Respiratory Infection Stated complaint: gamaliel Time Seen by Provider: 05/17/24 10:10 Source: patient, RN notes reviewed, old records reviewed Mode of arrival: ambulatory Limitations: no limitations - History of Present Illness Initial comments: This is a 64-year-old female with a past medical history for COPD and asthma diabetes and high cholesterol. Patient states she has been coughing now for 2 days. Patient states she also feels like she is wheezing more. Patient denies fever chill but she does have body aches. Patient denies any chest pain or back pain. Patient has abdominal pain. Patient denies any sore throat. Patient denies nausea vomiting diarrhea - Related Data Home Medications Medication Instructions Recorded Confirmed Fenofibrate 160 mg PO DAILY 03/17/21 03/18/24 Omeprazole 20 mg PO DAILY 03/17/21 03/18/24 Fluticasone/Umeclidin/Vilanter 1 puff INHALATION DAILY 03/13/23 03/18/24 [Trelegy Ellipta 100-62.5-25] Ezetimibe [Zetia] 10 mg PO DAILY 03/18/24 03/18/24 Meloxicam [Mobic] 15 mg PO DAILY 03/18/24 03/18/24 Montelukast [Singulair] 10 mg PO DAILY 03/18/24 03/18/24 sitaGLIPtin [Januvia] 25 mg PO DAILY 03/18/24 03/18/24 traZODone HCL 150 mg PO DAILY 03/18/24 03/18/24 Previous Rx's Medication Instructions Recorded Oseltamivir [Tamiflu] 75 mg PO Q12HR #10 cap 05/17/24 predniSONE [Deltasone] 40 mg PO DAILY #8 tab 05/17/24 Allergies Allergy/AdvReac Type Severity Reaction Status Date / Time No Known Allergies Allergy Verified 03/18/24 08:06 Review of Systems ROS Statement: Those systems with pertinent positive or pertinent negative responses have been documented in the HPI. ROS Other: All systems not noted in ROS Statement are negative. Past Medical History Past Medical History: COPD, Diabetes Mellitus, Hyperlipidemia Additional Past Medical History / Comment(s): HEPATITIS C in the past. Gallstone. Borderline type 2 diabetes. History of drug abuse s/p rehab. Past FAMILY SOCIOLOGIST history: history of trichomonas and gonorrhea at age 19. She was treated for syphilis in 2014. History of Any Multi-Drug Resistant Organisms: None Reported Past Surgical History: Tubal Ligation Additional Past Surgical History / Comment(s): surgery for ectopic pregnancyx2. Colonoscopy 2017(next after 10yr). Past Anesthesia/Blood Transfusion Reactions: No Reported Reaction Past Psychological History: No Psychological Hx Reported Smoking Status: Former smoker Past Alcohol Use History: None Reported Past Drug Use History: Cocaine, Heroin, IV Drug Use - Past Family History Mother Family Medical History: No Reported History Additional Family Medical History / Comment(s): Maternal grandmother had ovarian cancer. Sister(s) Family Medical History: Cancer, Diabetes Mellitus Additional Family Medical History / Comment(s): One sister had some type of cancer but she is unsure of the type. Another sister has diabetes. General Exam - General Exam Comments Initial Comments: GENERAL: Patient is well-developed and well-nourished. Patient is nontoxic and well- hydrated and is in mild distress. ENT: Neck is soft and supple. No significant lymphadenopathy is noted. Oropharynx is clear. Moist mucous membranes. Neck has full range of motion without eliciting any pain. EYES: The sclera were anicteric and conjunctiva were pink and moist. Extraocular movements were intact and pupils were equal round and reactive to light. Eyelids were unremarkable. PULMONARY: Patient has bilateral expiratory wheezing CARDIOVASCULAR: There is a regular rate and rhythm without any murmurs gallops or rubs. ABDOMEN: Soft and nontender with normal bowel sounds. SKIN: Skin is clear with no lesions or rashes and otherwise unremarkable. NEUROLOGIC: Patient is alert and oriented x3. Cranial nerves II through XII are grossly intact. Motor and sensory are also intact. Normal speech, volume and content. Symmetrical smile. MUSCULOSKELETAL: Normal extremities with adequate strength and full range of motion. LYMPHATICS: No significant lymphadenopathy is noted PSYCHIATRIC: Normal psychiatric evaluation. Limitations: no limitations Course Vital Signs 05/17/24 05/17/24 05/17/24 10:06 10:20 11:41 Temperature 99.4 F Pulse Rate 103 H 92 Respiratory 20 20 Rate Blood Pressure 140/82 O2 Sat by Pulse 96 Oximetry 05/17/24 11:50 Temperature Pulse Rate 96 Respiratory Rate Blood Pressure O2 Sat by Pulse Oximetry Medical Decision Making - Medical Decision Making Was pt. sent in by a medical professional or institution (, PA, SENIOR TECHNICAL PROJECT MANAGER, urgent care, hospital, or half-way...) When possible be specific @ -No Did you speak to anyone other than the patient for history (EMS, parent, family, police, friend...)? What history was obtained from this source @ -No Did you review nursing and triage notes (agree or disagree)? Why? @ -I reviewed and agree with nursing and triage notes Were old charts reviewed (outside hosp., previous admission, EMS record, old EKG, old radiological studies, urgent care reports/EKG's, half-way records)? Report findings @ -No old charts were reviewed Differential Diagnosis? @ -COVID, influenza A, influenza B, upper respiratory infection, bronchitis, pneumonia, this is not an all-inclusive list EKG interpreted by me (3pts min.). @ -As above X-rays interpreted by me (1pt min.). @ -Chest x-ray shows no acute abnormality CT interpreted by me (1pt min.). @ -None done U/S interpreted by me (1pt. min.). @ -None done What testing was considered but not performed or refused? (CT, X-rays, U/S, labs)? Why? @ -None What meds were considered but not given or refused? Why? @ -None Did you discuss the management of the patient with other professionals (professionals i.e. SHANKAR Lange, SENIOR TECHNICAL PROJECT MANAGER, lab, RT, psych nurse, social welfare research worker, manager psychology, teacher, licensing officer, clinical case manager)? Give summary @ -No Was smoking cessation discussed for >3mins.? @ -No Was critical care preformed (if so, how long)? @ -No Were there social determinants of health that impacted care today? How? (Homelessness, low income, unemployed, alcoholism, drug addiction, transportation, low edu. Level, literacy, decrease access to med. care, penitentiary, rehab)? @ -No Was there de-escalation of care discussed even if they declined (Discuss DNR or withdrawal of care, Hospice)? DNR status @ -No What co-morbidities impacted this encounter? (DM, HTN, Smoking, COPD, CAD, Cancer, CVA, ARF, Chemo, Hep., AIDS, mental health diagnosis, sleep apnea, morbid obesity)? @ -None Was patient admitted / discharged? Hospital course, mention meds given and route, prescriptions, significant lab abnormalities, going to OR and other pertinent info. @ -Patient received a breathing treatment in the emergency department as well as steroids because of her wheezing. Patient had influenza A should be sent home with steroids and Tamiflu. Undiagnosed new problem with uncertain prognosis? @ -No Drug Therapy requiring intensive monitoring for toxicity (Heparin, Nitro, Insulin, Cardizem)? @ -No Were any procedures done? @ -No Diagnosis/symptom? @ -Influenza A Acute, or Chronic, or Acute on Chronic? @ -Acute Uncomplicated (without systemic symptoms) or Complicated (systemic symptoms)? @ -Complicated Side effects of treatment? @ -No Exacerbation, Progression, or Severe Exacerbation? @ -No Poses a threat to life or bodily function? How? (Chest pain, [place], [place], pneumonia, PE, COPD, DKA, ARF, appy, cholecystitis, CVA, Diverticulitis, Homicidal, Suicidal, threat to staff... and all critical care pts) @ -No - Lab Data Lab Results 05/17/24 Range/Units 10:30 Influenza Type A (PCR) Detected A (Not Detectd) Influenza Type B (PCR) Not Detected (Not Detectd) RSV (PCR) Not Detected (Not Detectd) SARS-CoV-2 (PCR) Not Detected (Not Detectd) Disposition Clinical Impression: Influenza A Disposition: HOME SELF-CARE Instructions (If sedation given, give patient instructions): Influenza (ED) Additional Instructions: Patient should take the steroids as prescribed. Patient should do breathing treatments every 4 hours. Patient to take Motrin Tylenol for any discomfort with the body aches Prescriptions: predniSONE [Deltasone] 40 mg PO DAILY #8 tab Oseltamivir [Tamiflu] 75 mg PO Q12HR #10 cap Is patient prescribed a controlled substance at d/c from ED?: No Referrals: Bela Burch MD [Primary Care Provider] - 1-2 days Time of Disposition: 11:54
[2024-05-17 11:13] LABS: Influenza A Detected (Not Detectd); Influenza B Not Detected (Not Detectd); RSV Not Detected (Not Detectd)
[2024-05-17] MEDS: IPRATROPIUM-ALBUTEROL 3 ML NEB INHALATION STA (11:41)
[2024-05-17 12:05] VITALS: BP 145/68; PULSE 68; RESP 16
== END 2024-05-17 12:04 | disposition home or self-care (01) ==
LOC: EC 09:57
DX: J10.1 Influenza due to other identified influenza virus with other respiratory manifestations (principal); Z87.891 Personal history of nicotine dependence
CPT/HCPCS: 94640; 87636; 71046; 99285; J7512

== ENCOUNTER 2024-06-24 22:37 | Inpatient (IN) | payer OTHER ==
--- NOTE | 2024-06-24 22:51 | ED ---
SOB HPI - General Chief Complaint: Shortness of Breath Stated Complaint: GOVIND chest pain Time Seen by Provider: 06/24/24 22:50 Source: patient, RN notes reviewed, old records reviewed Mode of arrival: wheelchair Limitations: no limitations - History of Present Illness Initial Comments: This is a 64 female to the ER for evaluation of severe dyspnea known underlying COPD on home O2. Patient has severe hypoxia on arrival to the ER with increasing shortness of breath for a few days patient is not sure, her boyfriend is not sick she is not feel sick she does not feel fevers no chest pain. Patient is just cannot take a deep breath MD Complaint: shortness of breath, cough -: days(s) Severity: moderate Severity scale (1-10): 6 Consistency: constant Improves With: nothing Known History Of: COPD, asthma Context: recent URI, recent illness Associated Symptoms: cough, sputum production Treatments Prior to Arrival: none - Related Data Home Medications Medication Instructions Recorded Confirmed Fenofibrate 160 mg PO DAILY 03/17/21 03/18/24 Omeprazole 20 mg PO DAILY 03/17/21 03/18/24 Fluticasone/Umeclidin/Vilanter 1 puff INHALATION DAILY 03/13/23 03/18/24 [Trelegy Ellipta 100-62.5-25] Ezetimibe [Zetia] 10 mg PO DAILY 03/18/24 03/18/24 Meloxicam [Mobic] 15 mg PO DAILY 03/18/24 03/18/24 Montelukast [Singulair] 10 mg PO DAILY 03/18/24 03/18/24 sitaGLIPtin [Januvia] 25 mg PO DAILY 03/18/24 03/18/24 traZODone HCL 150 mg PO DAILY 03/18/24 03/18/24 Previous Rx's Medication Instructions Recorded Oseltamivir [Tamiflu] 75 mg PO Q12HR #10 cap 05/17/24 predniSONE [Deltasone] 40 mg PO DAILY #8 tab 05/17/24 Allergies Allergy/AdvReac Type Severity Reaction Status Date / Time No Known Allergies Allergy Verified 06/24/24 22:45 Review of Systems ROS Statement: Those systems with pertinent positive or pertinent negative responses have been documented in the HPI. ROS Other: All systems not noted in ROS Statement are negative. Past Medical History Past Medical History: COPD, Diabetes Mellitus, Hyperlipidemia Additional Past Medical History / Comment(s): HEPATITIS C in the past. Gallstone. Borderline type 2 diabetes. History of drug abuse s/p rehab. 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 She was treated for syphilis in 2015. History of Any Multi-Drug Resistant Organisms: None Reported Past Surgical History: Tubal Ligation Additional Past Surgical History / Comment(s): surgery for ectopic pregnancyx2. Colonoscopy 2017(next after 10yr). Past Anesthesia/Blood Transfusion Reactions: No Reported Reaction Past Psychological History: No Psychological Hx Reported Smoking Status: Former smoker Past Alcohol Use History: None Reported Past Drug Use History: Cocaine, Heroin, IV Drug Use - Past Family History Mother Family Medical History: No Reported History Additional Family Medical History / Comment(s): Maternal grandmother had ovarian cancer. Sister(s) Family Medical History: Cancer, Diabetes Mellitus Additional Family Medical History / Comment(s): One sister had some type of cancer but she is unsure of the type. Another sister has diabetes. General Exam Limitations: no limitations General appearance: alert, in no apparent distress, anxious Head exam: Present: atraumatic, normocephalic, normal inspection Eye exam: Present: normal appearance, PERRL, EOMI. Absent: scleral icterus, conjunctival injection, periorbital swelling ENT exam: Present: normal exam, mucous membranes moist Neck exam: Present: normal inspection. Absent: tenderness, meningismus, lymphadenopathy Respiratory exam: Present: respiratory distress, wheezes, accessory muscle use, decreased breath sounds, prolonged expiratory. Absent: rales, rhonchi, stridor Cardiovascular Exam: Present: regular rate, normal rhythm, normal heart sounds. Absent: systolic murmur, diastolic murmur, rubs, gallop, clicks GI/Abdominal exam: Present: soft, normal bowel sounds. Absent: distended, tenderness, guarding, rebound, rigid Extremities exam: Present: normal inspection, full ROM, normal capillary refill. Absent: tenderness, pedal edema, joint swelling, calf tenderness Back exam: Present: normal inspection Neurological exam: Present: alert, oriented X3, CN II-XII intact Psychiatric exam: Present: normal affect, normal mood Skin exam: Present: warm, dry, intact, normal color. Absent: rash Course Vital Signs 06/24/24 06/24/24 06/24/24 22:42 23:00 23:04 Temperature 97.7 F Pulse Rate 91 91 80 Respiratory 18 18 Rate Blood Pressure 142/81 123/89 O2 Sat by Pulse 73 L 92 L Oximetry 06/24/24 23:14 Temperature Pulse Rate 85 Respiratory Rate Blood Pressure O2 Sat by Pulse Oximetry - Reevaluation(s) Reevaluation #1: 06/25/24 00:47 Records reviewed Reevaluation #2: 06/25/24 00:47 Symptoms are improved with supplemental O2 and breathing treatments Reevaluation #3: 06/25/24 00:47 Informed of results and questions answered Reevaluation #4: Was pt. sent in by a medical professional or institution (, SHANKAR, DIRECTOR OF CATERING SALES, urgent care, hospital, or senior care...) When possible be specific @ -no Did you speak to anyone other than the patient for history (EMS, parent, family, police, friend...)? What history was obtained from this source @ -no Did you review nursing and triage notes (agree or disagree)? Why? @ -agree Are old charts reviewed (outside hosp., previous admission, EMS record, old EKG, old radiological studies, urgent care reports/EKG's, senior care records)? Report findings @ -yes Differential Diagnosis (chest pain, altered mental status, abdominal pain women, abdominal pain men, vaginal bleeding, weakness, fever, dyspnea, syncope, headache, dizziness, GI bleed, back pain, seizure, CVA, palpatations, mental health, musculoskeletal)? @ -prior EKG interpreted by me (3pts min.). @ -yes X-rays interpreted by me (1pt min.). @ -yes negative for acute disease CT interpreted by me (1pt min.). @ -no U/S interpreted by me (1pt. min.). @ -no What testing was considered but not performed or refused? (CT, X-rays, U/S, labs)? Why? @ -none What meds were considered but not given or refused? Why? @ -none Did you discuss the management of the patient with other professionals (prof homar i.e. , SHANKAR, DIRECTOR OF CATERING SALES, lab, RT, psych nurse, social secretary, object oriented programmer, teacher, patrol officer, rehabilitation caseworker)? Give summary @ -no Was smoking cessation discussed for >3mins.? @ -no Was critical care preformed (if so, how long)? @ -no Were there social determinants of health that impacted care today? How? (Homelessness, low income, unemployed, alcoholism, drug addiction, transportation, low edu. Level, literacy, decrease access to med. care, long-term, rehab)? @ -none Was there de-escalation of care discussed even if they declined (Discuss DNR or withdrawal of care, Hospice)? DNR status @ -no What co-morbidities impacted this encounter? (DM, HTN, Smoking, COPD, CAD, Cancer, CVA, ARF, Chemo, Hep., AIDS, mental health diagnosis, sleep apnea, morbid obesity)? @ -none Was patient admitted / discharged? Hospital course, mention meds given and route, prescriptions, significant lab abnormalities, going to OR and other pertinent info. @ - Undiagnosed new problem with uncertain prognosis? @ -no Drug Therapy requiring intensive monitoring for toxicity (Heparin, Nitro, Insulin, Cardizem)? @ -no Were any procedures done? @ -no Diagnosis/symptom? @ - Acute, or Chronic, or Acute on Chronic? @ -Acute Uncomplicated (without systemic symptoms) or Complicated (systemic symptoms)? @ -Complicated Side effects of treatment? @ -no Exacerbation, Progression, or Severe Exacerbation? @ -exacerbation Poses a threat to life or bodily function? How? (Chest pain, [place], [place], pneumonia, PE, COPD, DKA, ARF, appy, cholecystitis, CVA, Diverticulitis, Homicidal, Suicidal, threat to staff... and all critical care pts) @ -yes Reevaluation #5: Differential Dyspnea: Coronary syndrome, arrhythmia, tamponade, asthma, COPD, pulmonary embolism, pneumonia, pneumothorax, pulmonary effusion, anaphylaxis, diabetic ketoacidosis, flailed chest, pulmonary contusion, diaphragmatic rupture, anemia, neuromuscular, this is not meant to be an all-inclusive list. Medical Decision Making - Medical Decision Making 64 female to the ER for evaluation of significant COPD exacerbation with hypoxia will admit for current monitoring of low oxygen levels and breathing treatments [id number] with steroids. - Lab Data Result diagrams: 06/24/24 23:00 06/24/24 23:27 Lab Results 06/24/24 06/24/24 06/24/24 Range/Units 23:00 23:00 23:00 WBC 4.5 (3.8-10.6) k/uL RBC 5.68 H (3.80-5.40) m/uL Hgb 16.8 H (11.4-16.0) gm/dL Hct 53.2 H (34.0-46.0) % MCV 93.7 (80.0-100.0) fL MCH 29.5 (25.0-35.0) pg MCHC 31.5 (31.0-37.0) g/dL RDW 13.4 (11.5-15.5) % Plt Count 195 (150-450) k/uL MPV 7.1 Neutrophils % 68 % Lymphocytes % 17 % Monocytes % 6 % Eosinophils % 7 % Basophils % 1 % Neutrophils # 3.0 (1.3-7.7) k/uL Lymphocytes # 0.8 L (1.0-4.8) k/uL Monocytes # 0.3 (0-1.0) k/uL Eosinophils # 0.3 (0-0.7) k/uL Basophils # 0.0 (0-0.2) k/uL PT 11.9 (10.0-12.5) sec INR 1.1 (<1.2) APTT 23.5 (22.0-30.0) sec Sodium (137-145) mmol/L Potassium (3.5-5.1) mmol/L Chloride (98-107) mmol/L Carbon Dioxide (22-30) mmol/L Anion Gap mmol/L BUN (7-17) mg/dL Creatinine (0.52-1.04) mg/dL Est GFR (CKD-EPI)AfAm (>60 ml/min/1.73 sqM) Est GFR (CKD-EPI)NonAf (>60 ml/min/1.73 sqM) Glucose (74-99) mg/dL Plasma Lactic Acid Sherif 1.2 (0.7-2.0) mmol/L Calcium (8.4-10.2) mg/dL Magnesium (1.6-2.3) mg/dL Total Bilirubin (0.2-1.3) mg/dL AST (14-36) U/L ALT (4-34) U/L Alkaline Phosphatase (38-126) U/L Troponin I (0.000-0.034) ng/mL NT-Pro-B Natriuret Pep pg/mL Total Protein (6.3-8.2) g/dL Albumin (3.5-5.0) g/dL Influenza Type A (PCR) (Not Detectd) Influenza Type B (PCR) (Not Detectd) RSV (PCR) (Not Detectd) SARS-CoV-2 (PCR) (Not Detectd) 06/24/24 06/24/24 06/24/24 Range/Units 23:00 23:27 23:27 WBC (3.8-10.6) k/uL RBC (3.80-5.40) m/uL Hgb (11.4-16.0) gm/dL Hct (34.0-46.0) % MCV (80.0-100.0) fL MCH (25.0-35.0) pg MCHC (31.0-37.0) g/dL RDW (11.5-15.5) % Plt Count (150-450) k/uL MPV Neutrophils % % Lymphocytes % % Monocytes % % Eosinophils % % Basophils % % Neutrophils # (1.3-7.7) k/uL Lymphocytes # (1.0-4.8) k/uL Monocytes # (0-1.0) k/uL Eosinophils # (0-0.7) k/uL Basophils # (0-0.2) k/uL PT (10.0-12.5) sec INR (<1.2) APTT (22.0-30.0) sec Sodium 139 (137-145) mmol/L Potassium 4.0 (3.5-5.1) mmol/L Chloride 109 H (98-107) mmol/L Carbon Dioxide 21 L (22-30) mmol/L Anion Gap 9 mmol/L BUN 20 H (7-17) mg/dL Creatinine 1.06 H (0.52-1.04) mg/dL Est GFR (CKD-EPI)AfAm 65 (>60 ml/min/1.73 sqM) Est GFR (CKD-EPI)NonAf 56 (>60 ml/min/1.73 sqM) Glucose 121 H (74-99) mg/dL Plasma Lactic Acid Sherif (0.7-2.0) mmol/L Calcium 8.9 (8.4-10.2) mg/dL Magnesium 1.6 (1.6-2.3) mg/dL Total Bilirubin 0.5 (0.2-1.3) mg/dL AST 22 (14-36) U/L ALT 24 (4-34) U/L Alkaline Phosphatase 96 (38-126) U/L Troponin I <0.012 (0.000-0.034) ng/mL NT-Pro-B Natriuret Pep <20 pg/mL Total Protein 6.5 (6.3-8.2) g/dL Albumin 3.8 (3.5-5.0) g/dL Influenza Type A (PCR) Not Detected (Not Detectd) Influenza Type B (PCR) Not Detected (Not Detectd) RSV (PCR) Not Detected (Not Detectd) SARS-CoV-2 (PCR) Not Detected (Not Detectd) - EKG Data -: EKG Interpreted by Me (EKG is A-fib 93 QRS 77 QTc 394) - Radiology Data Radiology results: report reviewed (Chest x-ray is negative for acute disease), image reviewed Critical Care Time Critical Care Time: Yes Total Critical Care Time: 31 Disposition Clinical Impression: Acute exacerbation of chronic obstructive pulmonary disease, Chronic obstructive airway disease with asthma, Hypoxemia, Acute respiratory failure Disposition: ADMITTED IP TO THIS HOSP Condition: Fair Is patient prescribed a controlled substance at d/c from ED?: No Referrals: Bela Burch MD [Primary Care Provider] - 1-2 days Time of Disposition: 00:30
[2024-06-24] MEDS: IPRATROPIUM-ALBUTEROL 3 ML NEB INHALATION STA (23:04)
[2024-06-24] MEDS: methylPREDNISolone SOD SUCCI 125 MG/2 ML VIAL IV STA (23:10)
[2024-06-24] MEDS: SODIUM CHLORIDE 0.9% 1,000 ML IV SCH (23:10)
[2024-06-24 23:11] LABS: Basophils % (A) 1 %; Eosinophils # (A) 0.3 k/uL (0-0.7); Eosinophils % (A) 7 %; HCT 53.2 % (34.0-46.0); HGB 16.8 gm/dL (11.4-16.0); Lymphocytes # (A) 0.8 k/uL (1.0-4.8); Lymphocytes % (A) 17 %; MCH 29.5 pg (25.0-35.0); MCHC 31.5 g/dL (31.0-37.0); MCV 93.7 fL (80.0-100.0); Mean Platelet Volume 7.1; Monocytes # (A) 0.3 k/uL (0-1.0); Monocytes % (A) 6 %; Neutrophils % (A) 68 %; Platelet Count 195 k/uL (150-450); RBC 5.68 m/uL (3.80-5.40); RDW 13.4 % (11.5-15.5); WBC 4.5 k/uL (3.8-10.6)
[2024-06-24 23:27] LABS: INR 1.1 (<1.2); Partial Thromboplastin Time 23.5 sec (22.0-30.0); Prothrombin Time 11.9 sec (10.0-12.5)
[2024-06-24 23:47] LABS: ALT 24 U/L (4-34); AST 22 U/L (14-36); African American GFR (CKD) 65 (>60 ml/min/1.73 sqM); Albumin 3.8 g/dL (3.5-5.0); Alkaline Phosphatase 96 U/L (38-126); Anion Gap 9 mmol/L; Blood Urea Nitrogen 20 mg/dL (7-17); Calcium 8.9 mg/dL (8.4-10.2); Carbon Dioxide 21 mmol/L (22-30); Chloride 109 mmol/L (98-107); Glucose 121 mg/dL (74-99); Magnesium 1.6 mg/dL (1.6-2.3); Non-African American GFR(CKD) 56 (>60 ml/min/1.73 sqM); Sodium 139 mmol/L (137-145); Total Bilirubin 0.5 mg/dL (0.2-1.3); Total Protein 6.5 g/dL (6.3-8.2)
[2024-06-24 23:55] LABS: NT-Pro-B-Type Natriuretic Pept <20 pg/mL
[2024-06-25 00:11] LABS: Influenza A Not Detected (Not Detectd); Influenza B Not Detected (Not Detectd); RSV Not Detected (Not Detectd)
--- NOTE | 2024-06-25 00:22 | XR ---
EXAM: XR Chest, 2 Views CLINICAL HISTORY: XR Reason: difficulty breathing TECHNIQUE: Frontal and lateral views of the chest. COMPARISON: May 17, 2024 FINDINGS: Lungs: The lungs are well-expanded with prominent vascular and interstitial markings in the perihilar regions and lung bases. No consolidation. Pleural space: Unremarkable. No pneumothorax. Heart: Unremarkable. No cardiomegaly. Mediastinum: Unremarkable. Normal mediastinal contour. Bones/joints: Unremarkable. No acute fracture. Upper abdomen: Unremarkable as visualized. No pneumoperitoneum is seen under the diaphragm. IMPRESSION: The lungs are well-expanded with prominent vascular and interstitial markings in the perihilar regions and lung bases. Likely combination of mild emphysema with vascular congestion. Possible mild edema but no focal consolidation is seen.
[2024-06-25] MEDS ORDERED: ONDANSETRON 4 MG/2 ML VIAL IVP PRN (00:33)
[2024-06-25] MEDS ORDERED: ALBUTEROL NEBULIZED 2.5 MG/3 ML INHALATION PRN (00:33)
[2024-06-25] MEDS ORDERED: NALOXONE 0.4 MG/ML 1 ML VIAL IVP PRN ×2 (00:33)
[2024-06-25] MEDS: IPRATROPIUM-ALBUTEROL 3 ML NEB INHALATION STA (00:46)
[2024-06-25] MEDS: traZODone HCL 50 MG TAB PO SCH (02:21)
[2024-06-25] MEDS: INSULIN LISPRO (HumaLOG) 100 UNIT/ML 10 mL VL SQ SCH (05:55)
[2024-06-25] MEDS: methylPREDNISolone SOD SUCCI 125 MG/2 ML VIAL IV SCH (06:08)
[2024-06-25 06:12] LABS: Glucose,Whole Blood 187 mg/dL (70-110)
[2024-06-25 07:30] VITALS: BP 109/65; PULSE 91; TEMP 97.6
[2024-06-25] MEDS: FENOFIBRATE 160 MG TAB PO SCH (08:48)
[2024-06-25] MEDS: PANTOPRAZOLE 40 MG TABLET PO SCH (08:48)
[2024-06-25] MEDS: MONTELUKAST 10 MG TAB PO SCH (08:48)
[2024-06-25] MEDS: EZETIMIBE 10 MG TAB PO SCH (08:48)
[2024-06-25] MEDS: MELOXICAM 7.5 MG TAB PO SCH (08:49)
[2024-06-25] MEDS ORDERED: IPRATROPIUM-ALBUTEROL 3 ML NEB INHALATION PRN (09:05)
[2024-06-25] MEDS ORDERED: NON FORMULARY DRUG (Levalbuterol Hfa Inhaler 200 PUFF/9 GM Gm) INHALATION PRN (09:05)
[2024-06-25] MEDS ORDERED: ALBUTEROL HFA INHALER INHALATION PRN (09:05)
[2024-06-25] MEDS ORDERED: HYDROcodone/APAP 10-325MG 1 EACH TAB PO PRN (09:05)
[2024-06-25] MEDS: TIOTROPIUM 2.5 MCG INHALER INHALATION SCH (09:32)
[2024-06-25] MEDS: SYMBICORT 160-4.5 MCG INHALER INHALATION SCH (09:32)
--- NOTE | 2024-06-25 09:53 | P.CNPUL ---
History of Present Illness Consult date: 06/25/24 Reason for consult: dyspnea, asthma, COPD, hypoxemia Chief complaint: Shortness of breath and wheezing History of present illness: 64-year-old male with history of end-stage lung disease due to severe COPD emphysema also has component of allergic asthma patient is on home oxygen 2 L nasal cannula. Her symptoms started about 2 to 3 days ago increasing cough congestion shortness of breath, patient noted herself wheezing came into emergency department for further evaluation. Denies any fever or chills, denies any night sweats, no loss of consciousness, no nausea vomiting diarrhea, denies any abdominal pain. Patient does have a history of being on Biologics at Dr. 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 Other active medical problem including dyslipidemia, morbid obesity, type 2 diabetes mellitus, mood disorder depression. Patient recently had influenza A infection received a course of Tamiflu also tapering steroids early in May 2024. No acute process seen. Labs are significant for hemoconcentration with hemoglobin hematocrit is 16.8/53.2 WBC count are within normal limit coags okay, BUN/creatinine 20/1.06, glucose 121, rest of chemistry fairly within normal limit, a viral panel including influenza A, influenza B, RSV, COVID-19 negative. Currently patient is being given inhaled metered-dose inhaler with Spiriva Respimat oral prednisone continuation of Singulair and Symbicort along with albuterol nebuli zer as needed On arrival her oxygen saturation were just 73%, improved to 92% on supplemental oxygen blood pressure is 140/80 afebrile, admitted chest x-ray consistent with hyperinflated lung with prominent interstitium and small heart size Review of Systems All systems: negative Past Medical History Past Medical History: COPD, Diabetes Mellitus, Hyperlipidemia Additional Past Medical History / Comment(s): HEPATITIS C in the past. Gallstone. Borderline type 2 diabetes. History of drug abuse s/p rehab. 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 She was treated for syphilis in 2014. History of Any Multi-Drug Resistant Organisms: None Reported Past Surgical History: Tubal Ligation Additional Past Surgical History / Comment(s): surgery for ectopic pregnancyx2. Colonoscopy 2017(next after 10yr). Past Anesthesia/Blood Transfusion Reactions: No Reported Reaction Past Psychological History: No Psychological Hx Reported Smoking Status: Former smoker Past Alcohol Use History: None Reported Additional Past Alcohol Use History / Comment(s): quit smoking 2016, smoked for 40 yrs Past Drug Use History: Cocaine, Heroin, IV Drug Use Additional Drug Use History / Comment(s): none since 2016. - Past Family History Mother Family Medical History: No Reported History Additional Family Medical History / Comment(s): Maternal grandmother had ovarian cancer. Sister(s) Family Medical History: Cancer, Diabetes Mellitus Additional Family Medical History / Comment(s): One sister had some type of cancer but she is unsure of the type. Another sister has diabetes. Medications and Allergies Home Medications Medication Instructions Recorded Confirmed Type Fenofibrate 160 mg PO DAILY 03/17/21 06/25/24 History Omeprazole 20 mg PO DAILY 03/17/21 06/25/24 History Ezetimibe [Zetia] 10 mg PO DAILY 03/18/24 06/25/24 History Meloxicam [Mobic] 15 mg PO DAILY PRN 03/18/24 06/25/24 History Montelukast [Singulair] 10 mg PO HS 03/18/24 06/25/24 History sitaGLIPtin [Januvia] 25 mg PO DAILY 03/18/24 06/25/24 History traZODone HCL 150 mg PO HS 03/18/24 06/25/24 History Albuterol Sulfate [Ventolin HFA] 2 puff INHALATION RT-Q6H PRN 06/25/24 06/25/24 History Famotidine [Pepcid] 20 mg PO BID 06/25/24 06/25/24 History Fluticasone/Umeclidin/Vilanter 1 puff INHALATION RT-DAILY 06/25/24 06/25/24 History [Trelegy Ellipta 100-62.5-25] HYDROcodone/APAP 10-325MG [Magazine 1 tab PO QID PRN 06/25/24 06/25/24 History 10-325] Ipratropium-Albuterol Nebulize 3 ml INHALATION RT-QID PRN 06/25/24 06/25/24 History [Duoneb 0.5 mg-3 mg/3 ml Soln] Levalbuterol Hfa Inhaler [Xopenex 2 puff INHALATION RT-Q4H PRN 06/25/24 06/25/24 History Hfa Inhaler] Lidocaine 4% Patch 1 patch TOPICAL DAILY PRN 06/25/24 06/25/24 History Allergies Allergy/AdvReac Type Severity Reaction Status Date / Time No Known Allergies Allergy Verified 06/25/24 08:42 Physical Exam Vitals: Vital Signs Temp Pulse Pulse Resp BP BP Pulse Ox 06/25/24 09:36 92 L 06/25/24 08:00 91 18 06/25/24 07:29 97.6 F 91 18 109/65 91 L 06/25/24 01:51 97.9 F 86 18 119/79 92 L 06/25/24 01:02 87 18 104/75 91 L 06/25/24 00:56 96 06/25/24 00:46 96 06/24/24 23:14 85 06/24/24 23:04 80 06/24/24 23:00 91 18 123/89 92 L 06/24/24 22:42 97.7 F 91 18 142/81 73 L Intake and Output 06/24/24 06/25/24 06/25/24 22:59 06:59 14:59 Intake Total 480 Balance 480 Intake: Oral 480 Other: Voiding Method Toilet # Voids 1 1 Weight 96.162 kg 96.162 kg - Constitutional General appearance: average body habitus, disheveled - EENT Eyes: EOMI, PERRLA ENT: normal oropharynx Ears: bilateral: normal - Neck Carotids: bilateral: upstroke normal - Respiratory Respiratory: bilateral: CTA - Cardiovascular Rhythm: regular Heart sounds: normal: S1, S2 - Integumentary Integumentary: normal turgor - Neurologic Neurologic: CNII-XII intact - Musculoskeletal Musculoskeletal: gait normal, generalized weakness, strength equal bilaterally - Psychiatric Psychiatric: A&O x's 3, appropriate affect, intact judgment & insight Results - Laboratory Findings CBC and BMP: 06/24/24 23:00 06/24/24 23:27 PT/INR, D-dimer PT 11.9 sec (10.0-12.5) 06/24/24 23:00 INR 1.1 (<1.2) 06/24/24 23:00 Abnormal lab findings: Abnormal Labs 06/24/24 06/24/24 06/25/24 23:00 23:27 06:11 RBC 5.68 H Hgb 16.8 H Hct 53.2 H Lymphocytes # 0.8 L Chloride 109 H Carbon Dioxide 21 L BUN 20 H Creatinine 1.06 H Glucose 121 H POC Glucose (mg/dL) 187 H - Diagnostic Findings Chest x-ray: report reviewed, image reviewed Assessment and Plan Assessment: Acute hypoxic respiratory failure due to acute eczema exacerbation and COPD exacerbation, on supplemental oxygen sats improved Acute COPD exacerbation, patient on bronchodilators along with continuation of home MDI and oral prednisone, tolerating well History of associated chronic allergic asthma, continue Biologics as outpatient and adjust plan as per primary scaffold erector Type 2 diabetes mellitus with hyperglycemia slightly uncontrolled, continue oral and hypoglycemic agent along with sliding scale insulin Morbid obesity, advised exercise weight loss Plan: As above, patient overall stable from pulmonary standpoint for discharge and follow-up with primary scaffold erector Time with Patient: Greater than 30
[2024-06-25 11:21] LABS: Glucose,Whole Blood 232 mg/dL (70-110)
[2024-06-25 14:04] VITALS: RESP 19
--- NOTE | 2024-06-25 15:51 | P.HPIM ---
History of Present Illness H&P Date: 06/25/24 Chief Complaint: Shortness of breath Patient is a 64-year-old female with history of COPD (on home oxygen 2 L as needed at night), emphysema, type 2 diabetes mellitus, and GERD presented to the ER with a complaint of worsening shortness of breath since 2 days. Patient reports that her oxygen saturation at home was in mid 80s. Patient was recently diagnosed with type A influenza on 05/17/[address] [facility] ER. She was treated with Tamiflu and tapering dose of corticosteroid. Patient believes that she has not been able to recover fully after she was diagnosed with influenza type A and has been feeling mildly short of breath for the past 1 month. No recent travel. Patient denies fever, chills, nausea, vomiting, chest pain, swelling in legs, orthopnea or PND. Initial lab work shows WBC 4.5, RBC 5.68, hemoglobin 16.8, hematocrit 53.2, platelet count 195, PT 11.9, INR 1.1, APTT 23.5, sodium 139, potassium 4.0, chloride 109, bicarb 21, BUN 20, creatinine 1.06, EGFR 56, glucose 121, calcium 8.9, magnesium 1.6, AST 22, ALT 24, total bili 0.5, NT proBNP < 20, troponin I less than 0.012. Chest x-ray shows finding consistent for COPD and emphysema but no focal consolidation seen. EKG shows normal sinus rhythm with ventricular rate of 93 bpm, DE interval of 120 ms, QRS duration 77 ms QTc 304. Normal R wave progression. Vital signs on arrival shows temperature 99.4 F, pulse rate 103, respiratory rate 20, blood pressure 140/82, oxygen 96% on room air. Review of systems: Pertinent positives and negatives as discussed in HPI, a complete review of systems was performed and all other systems are negative. Social history: Tobacco: Former smoker quit 9 years ago Alcohol: Occasionally Recreational drugs: None Travel: None Physical examination: Vital signs reviewed General: non toxic, no distress, appears at stated age, normal weight Derm: no unusual rashes/lesions, warm Head: atraumatic, normocephalic, symmetric Eyes: EOMI, no lid lag, anicteric sclera, pupils equal round reactive to light ENT: Nose and ears atraumatic Neck: No cervical lymphadenopathy, trachea midline, supple Mouth: no lip lesion, mucus membranes moist Cardiovascular: S1S2 reg, no murmur, positive dorsalis pedis pulse bilateral, no edema Lungs: CTA bilateral, no rhonchi, no rales, no accessory muscle use Abdominal: soft, nontender to palpation, no guarding Ext: muscle strength 5 out of 5 in all 4 extremities grossly, no gross muscle atrophy, no contractures, Neuro: CN II-XI grossly intact, no gross focal neuro deficits Psych: Alert, oriented, appropriate affect Assessment/Plan: This is a Patient is a 64-year-old female with history of COPD (on home oxygen 2 L as needed at night), emphysema, type 2 diabetes mellitus, and GERD presented to the ER with a complaint of worsening shortness of breath since 2 days. Case was discussed with the Emergency Room provider and decision was made to admit the patient for COPD exacerbation. Labs and images: Initial lab work shows WBC 4.5, RBC 5.68, hemoglobin 16.8, hematocrit 53.2, platelet count 195, PT 11.9, INR 1.1, APTT 23.5, sodium 139, potassium 4.0, chloride 109, bicarb 21, BUN 20, creatinine 1.06, EGFR 56, glucose 121, calcium 8.9, magnesium 1.6, AST 22, ALT 24, total bili 0.5, NT proBNP < 20, troponin I less than 0.012. Chest x-ray shows finding consistent for COPD and emphysema but no focal consolidation seen. EKG shows normal sinus rhythm with ventricular rate of 93 bpm, DE interval of 120 ms, QRS duration 77 ms QTc 304. Normal R wave progression. Active problems: #Acute hypoxemic respiratory failure #COPD exacerbation DuoNebs scheduled and [id number] Oxygen therapy as needed Transition from IV Solu-Medrol to oral prednisone 40 mg once daily #Type 2 diabetes mellitus Accu-Cheks Continue monitor Chronic problems: #GERD #Hyperlipidemia Resume Pepcid 20 mg p.o. twice daily Resume Zetia 10 mg p.o. daily and fenofibrate 160 mg p.o. daily DVT prophylaxis: SCDs GI prophylaxis: Protonix 40 mg p.o. daily F: 75 cc/h normal saline drip E: Replete as needed N: Heart healthy diet A: Ambulatory baseline The patient is admitted with an anticipated less than than 2 midnight stay for evaluation of COPD exacerbation CODE STATUS: Full code Discussed with: Patient Anticipated discharge place: Home Dictation was produced using [employer] dictation software. Please excuse any grammatical, word or spelling errors. Past Medical History Past Medical History: COPD, Diabetes Mellitus, Hyperlipidemia Additional Past Medical History / Comment(s): HEPATITIS C in the past. Gallstone. Borderline type 2 diabetes. History of drug abuse s/p rehab. Past [employer] history: history of trichomonas and gonorrhea at age 19. She was treated for syphilis in 2014. History of Any Multi-Drug Resistant Organisms: None Reported Past Surgical History: Tubal Ligation Additional Past Surgical History / Comment(s): surgery for ectopic pregnancyx2. Colonoscopy 2017(next after 10yr). Past Anesthesia/Blood Transfusion Reactions: No Reported Reaction Past Psychological History: No Psychological Hx Reported Smoking Status: Former smoker Past Alcohol Use History: None Reported Additional Past Alcohol Use History / Comment(s): quit smoking 2015, smoked for 40 yrs Past Drug Use History: Cocaine, Heroin, IV Drug Use Additional Drug Use History / Comment(s): none since 2015. - Past Family History Mother Family Medical History: No Reported History Additional Family Medical History / Comment(s): Maternal grandmother had ovarian cancer. Sister(s) Family Medical History: Cancer, Diabetes Mellitus Additional Family Medical History / Comment(s): One sister had some type of cancer but she is unsure of the type. Another sister has diabetes. Medications and Allergies Home Medications Medication Instructions Recorded Confirmed Type Fenofibrate 160 mg PO DAILY 03/17/21 06/25/24 History Omeprazole 20 mg PO DAILY 03/17/21 06/25/24 History Ezetimibe [Zetia] 10 mg PO DAILY 03/18/24 06/25/24 History Meloxicam [Mobic] 15 mg PO DAILY PRN 03/18/24 06/25/24 History Montelukast [Singulair] 10 mg PO HS 03/18/24 06/25/24 History sitaGLIPtin [Januvia] 25 mg PO DAILY 03/18/24 06/25/24 History traZODone HCL 150 mg PO HS 03/18/24 06/25/24 History Albuterol Sulfate [Ventolin HFA] 2 puff INHALATION RT-Q6H PRN 06/25/24 06/25/24 History Famotidine [Pepcid] 20 mg PO BID 06/25/24 06/25/24 History Fluticasone/Umeclidin/Vilanter 1 puff INHALATION RT-DAILY 06/25/24 06/25/24 History [Trelegy Ellipta 100-62.5-25] Ipratropium-Albuterol Nebulize 3 ml INHALATION RT-QID PRN 06/25/24 06/25/24 H istory [Duoneb 0.5 mg-3 mg/3 ml Soln] Levalbuterol Hfa Inhaler [Xopenex 2 puff INHALATION RT-Q4H PRN 06/25/24 06/25/24 History Hfa Inhaler] Lidocaine 4% Patch 1 patch TOPICAL DAILY PRN 06/25/24 06/25/24 History predniSONE 10 mg PO DAILY 8 Days #20 tab 06/25/24 Rx Allergies Allergy/AdvReac Type Severity Reaction Status Date / Time No Known Allergies Allergy Verified 06/25/24 08:42 Physical Exam Vitals: Vital Signs Temp Pulse Pulse Resp BP BP Pulse Ox 06/25/24 01:51 97.9 F 86 18 119/79 92 L 06/25/24 01:02 87 18 104/75 91 L 06/25/24 00:56 96 06/25/24 00:46 96 06/24/24 23:14 85 06/24/24 23:04 80 06/24/24 23:00 91 18 123/89 92 L 06/24/24 22:42 97.7 F 91 18 142/81 73 L Intake and Output 06/24/24 06/25/24 06/25/24 22:59 06:59 14:59 Intake Total 480 Balance 480 Intake: Oral 480 Other: # Voids 1 Weight 96.162 kg 96.162 kg Results CBC & Chem 7: 06/24/24 23:00 06/24/24 23:27 Labs: Abnormal Lab Results - Last 24 Hours (Table) 06/24/24 06/24/24 06/25/24 Range/Units 23:00 23:27 06:11 RBC 5.68 H (3.80-5.40) m/uL Hgb 16.8 H (11.4-16.0) gm/dL Hct 53.2 H (34.0-46.0) % Lymphocytes # 0.8 L (1.0-4.8) k/uL Chloride 109 H (98-107) mmol/L Carbon Dioxide 21 L (22-30) mmol/L BUN 20 H (7-17) mg/dL Creatinine 1.06 H (0.52-1.04) mg/dL Glucose 121 H (74-99) mg/dL POC Glucose (mg/dL) 187 H (70-110) mg/dL Thrombosis Risk Factor Assmnt - Choose All That Apply Any of the Below Risk Factors Present?: Yes Each Factor Represents 1 point: Abnormal pulmonary function (COPD), Obesity (BMI >25) Other Risk Factors: Yes Each Risk Factor Represents 2 Points: Age 61-74 years Other congenital or acquired thrombophilia - If yes, enter type in comment: No Thrombosis Risk Factor Assessment Total Risk Factor Score: 4 Thrombosis Risk Factor Assessment Level: Moderate Risk
--- NOTE | 2024-06-25 15:54 | P.DS ---
Providers Date of admission: 06/25/24 00:33 Attending physician: Tejas Ventura Consults: 06/25/24 00:39 Consult Physician Routine Consulting Provider: Jared Jose Consult Reason/Comments: known Do you want consulting provider notified?: Yes Primary care physician: Bela Burch [facility] Course: Discharge Diagnosis: #Acute hypoxemic respiratory failure, resolved #COPD exacerbation, resolved #Type 2 diabetes mellitus Hospital Course: Patient is a 64-year-old female with history of COPD (on home oxygen 2 L as needed at night), emphysema, type 2 diabetes mellitus, and GERD presented to the ER with a complaint of worsening shortness of breath since 2 days. Patient reports that her oxygen saturation at home was in mid 80s. Patient was recently diagnosed with type A influenza on 05/17/2024 at [facility] ER. She was treated with Tamiflu and tapering dose of corticosteroid. Patient believes that she has not been able to recover fully after she was diagnosed with influenza type A and has been feeling mildly short of breath for the past 1 month. No recent travel. Patient denies fever, chills, nausea, vomiting, chest pain, swelling in legs, orthopnea or PND. Initial lab work shows WBC 4.5, RBC 5.68, hemoglobin 16.8, hematocrit 53.2, platelet count 195, PT 11.9, INR 1.1, APTT 23.5, sodium 139, potassium 4.0, chloride 109, bicarb 21, BUN 20, creatinine 1.06, EGFR 56, glucose 121, calcium 8.9, magnesium 1.6, AST 22, ALT 24, total bili 0.5, NT proBNP < 20, troponin I less than 0.012. Chest x-ray shows finding consistent for COPD and emphysema but no focal consolidation seen. EKG shows normal sinus rhythm with ventricular rate of 93 bpm, SC interval of 120 ms, QRS duration 77 ms QTc 304. Normal R wave progression. Vital signs on arrival shows temperature 99.4 F, pulse rate 103, respiratory rate 20, blood pressure 140/82, oxygen 96% on room air. 06/25/2024: Patient seen and examined at bedside. Patient is not complaining of shortness of breath and is saturating in mid 90s on room air. Denies cough, chest pain, fever, chills, nausea, vomiting. Patient is medically stable and optimized to be discharged. Discharge disposition: Home Discharge physician: Patient to follow-up with PCP and sap pi architect within 1 to 2 weeks New prescription for prednisone taper dose Vital signs reviewed. Gen: in no apparent distress, resting comfortably in bed Eyes: PERRLA, EOMI, no scleral injection or icterus HENT: normocephalic, atraumatic, good hearing acuity, moist mucous membranes Neck: full range of motion Resp: CTAB, no rales, rhonchi, or wheezes CVS: normal S1 and S2, no murmurs, rubs or gallops, no edema GI: soft, NTTP, ND, no hepatosplenomegaly : no suprapubic tenderness, no CVAT, jones catheter [is/not] present MSK: no clubbing, no cyanosis, no noted contractures of extremities Skin: no noted rashes, petechiae; temperature of skin is appropriate Neuro: moving all extremities without signs of weakness, CN II-XII intact Psych: cooperative, euthymic mood, insight and judgment intact Dictation was produced using [employer] dictation software. Please excuse any grammatical, word or spelling errors. Attestation I have seen and examined this patient with my resident , discussed the same with the resident/CRISTINA, and agree with the dictator's assessment and plan as written Dr. Titi jose Patient Condition at Discharge: Stable Plan - Discharge Summary Discharge Rx Participant: Yes New Discharge Prescriptions: New predniSONE 10 mg PO DAILY 8 Days #20 tab Continue traZODone HCL 150 mg PO HS sitaGLIPtin [Januvia] 25 mg PO DAILY Montelukast [Singulair] 10 mg PO HS Meloxicam [Mobic] 15 mg PO DAILY PRN PRN Reason: Pain Albuterol Sulfate [Ventolin HFA] 2 puff INHALATION RT-Q6H PRN PRN Reason: Shortness Of Breath Lidocaine 4% Patch 1 patch TOPICAL DAILY PRN PRN Reason: Pain Omeprazole 20 mg PO DAILY Fenofibrate 160 mg PO DAILY Ezetimibe [Zetia] 10 mg PO DAILY Famotidine [Pepcid] 20 mg PO BID Fluticasone/Umeclidin/Vilanter [Trelegy Ellipta 100-62.5-25] 1 puff INHALATION RT-DAILY Ipratropium-Albuterol Nebulize [Duoneb 0.5 mg-3 mg/3 ml Soln] 3 ml INHALATION RT-QID PRN PRN Reason: Shortness Of Breath Levalbuterol Hfa Inhaler [Xopenex Hfa Inhaler] 2 puff INHALATION RT-Q4H PRN PRN Reason: Shortness Of Breath Discontinued HYDROcodone/APAP 10-325MG [[place] 10-325] 1 tab PO QID PRN PRN Reason: Pain Discharge Medication List Fenofibrate 160 mg PO DAILY 03/17/21 [History] Omeprazole 20 mg PO DAILY 03/17/21 [History] Ezetimibe [Zetia] 10 mg PO DAILY 03/18/24 [History] Meloxicam [Mobic] 15 mg PO DAILY PRN 03/18/24 [History] Montelukast [Singulair] 10 mg PO HS 03/18/24 [History] sitaGLIPtin [Januvia] 25 mg PO DAILY 03/18/24 [History] traZODone HCL 150 mg PO HS 03/18/24 [History] Albuterol Sulfate [Ventolin HFA] 2 puff INHALATION RT-Q6H PRN 06/25/24 [History] Famotidine [Pepcid] 20 mg PO BID 06/25/24 [History] Fluticasone/Umeclidin/Vilanter [Trelegy Ellipta 100-62.5-25] 1 puff INHALATION RT-DAILY 06/25/24 [History] Ipratropium-Albuterol Nebulize [Duoneb 0.5 mg-3 mg/3 ml Soln] 3 ml INHALATION RT-QID PRN 06/25/24 [History] Levalbuterol Hfa Inhaler [Xopenex Hfa Inhaler] 2 puff INHALATION RT-Q4H PRN 06/25/24 [History] Lidocaine 4% Patch 1 patch TOPICAL DAILY PRN 06/25/24 [History] predniSONE 10 mg PO DAILY 8 Days #20 tab 06/25/24 [Rx] Follow up Appointment(s)/Referral(s): Bela Burch MD [Primary Care Provider] - 1-2 days (Office not answering. Please call to make an appt. ) Lei Crum MD [STAFF PHYSICIAN] - 07/01/24 10:00 am Patient Instructions/Handouts: COPD (Chronic Obstructive Pulmonary Disease) (DC) Activity/Diet/Wound Care/Special Instructions: Please follow-up with your PCP and sap pi architect within 1 to 2 weeks. Please take your prednisone in a taper dose as directed Discharge Disposition: HOME SELF-CARE
[2024-06-25] MEDS ORDERED: FAMOTIDINE 20 MG TAB PO SCH (21:00)
[2024-06-26] MEDS ORDERED: NON FORMULARY DRUG (Fluticasone/Umeclidin/Vilanter [Trelegy Ellipta 100-62.5-25] 1 EACH Bl INHALATION SCH (08:00)
[2024-06-26] MEDS ORDERED: predniSONE 20 MG TAB PO SCH (09:30)
== END 2024-06-25 13:55 | disposition home or self-care (01) | DRG 140 ==
LOC: EC 22:37 → 4SSUR 06-25 00:33
PROVIDERS: ADMIT Hospitalist; ATTEND Hospitalist
DX: J44.1 Chronic obstructive pulmonary disease with (acute) exacerbation (principal); J96.01 Acute respiratory failure with hypoxia; J43.9 Emphysema, unspecified; F11.11 Opioid abuse, in remission; F14.11 Cocaine abuse, in remission; E11.65 Type 2 diabetes mellitus with hyperglycemia; E66.01 Morbid (severe) obesity due to excess calories; E78.5 Hyperlipidemia, unspecified; F32.A Depression, unspecified; J98.4 Other disorders of lung; L30.9 Dermatitis, unspecified; Z79.1 Long term (current) use of non-steroidal anti-inflammatories (NSAID); Z79.84 Long term (current) use of oral hypoglycemic drugs; Z79.899 Other long term (current) drug therapy; Z87.891 Personal history of nicotine dependence; Z99.81 Dependence on supplemental oxygen; Z68.33 Body mass index [BMI] 33.0-33.9, adult; Z86.19 Personal history of other infectious and parasitic diseases
CPT/HCPCS: 36415; 71046; 80053; 83605; 83735; 83880; 84484; 85025; 85610; 85730; 87636; 93005; 94640; 94760; 96361; 96374; 99291

== ENCOUNTER → 2024-07-18 | Day surgery (SDC) | payer OTHER ==
[2024-07-15 16:03] VITALS: BMI 32.6
[~2024-07-18] MED LIST changes: +LIDOCAINE 1% (10MG/ML) FOR IV START INTRADERMA PRN; -LIDOCAINE 1% 20 ML VIAL (10MG/ML) FOR IV START INTRADERMA PRN; +LIDOCAINE 2% (PF) 20 MG/ML 5 ML VIAL ONE; +PROPOFOL 10 MG/ML 20 ML VIAL IV ONE; +methylPREDNISolone SOD SUCCI 125 MG/2 ML VIAL ONE
[2024-07-18 10:49] VITALS: TEMP 96.5
[2024-07-18] MEDS: IPRATROPIUM-ALBUTEROL 3 ML NEB INHALATION STA (10:57)
[2024-07-18] MEDS: LACTATED RINGERS 1,000 ML IV SCH (10:58)
[2024-07-18] MEDS: IV FLUID CONTINUATION 1,000 ML IV ONE (11:17)
[2024-07-18 11:28] LABS: Glucose,Whole Blood 91 mg/dL (70-110)
[2024-07-18 14:03] VITALS: BP 138/85; PULSE 92; RESP 16
--- NOTE | 2024-07-18 17:04 | P.PCN ---
Date of Procedure: 07/18/24 Preoperative Diagnosis: Persistent cough dyspnea and chest congestion Postoperative Diagnosis: COPD and tracheobronchomalacia (severe) along with thick respiratory secretions retained within the patient's airways Tracheobronchitis with diffuse mucosal inflammatory changes Procedure(s) Performed: Flexible bronchoscopy and a BAL of the right middle lobe. Anesthesia: MAC Surgeon: Brett Acuna Estimated Blood Loss (ml): 0 Pathology: other Condition: stable Disposition: same day Operative Findings: This procedure was done in the endoscopy suite. A consent was obtained. Timeout was done Following that, a flexible bronchoscope was introduced through the left nostril and was advanced to the upper airway. Examination of the posterior pharynx, larynx, epiglottis, arytenoids, vallecula, aryepiglottic folds was done and all of the structures were within normal limits. The vocal cord function and mobility was within normal limits with normal abduction and adduction. A total of 2 cc of 1% lidocaine was applied to the vocal cord. Following that, the flexible bronchoscope was advanced to the upper trachea. Immediately, it was noted that the patient has a component of severe tracheobronchomalacia with complete collapsibility of airway with expiratory maneuvers and coughing. In fact, with exhalation, the patient's membranous trachea was moving anteriorly causing complete airway obstruction. Similar to the trachea, the rest of the airway showed severe bronchomalacia. There was retained secretions within the airways and no secretions were rather thick and tenacious. The flexible bronchoscope was used to restore airway patency. Therapeutic airway suctioning was done. Following that, a complete airway examination was done. Visualized airways include the trachea, bilateral mainstem bronchi, right upper lobe bronchus, bronchus intermedius, right middle lobe bronchus, right lower lobe bronchus and the various 10 segments on the right and examination of the left side included the left upper lobe bronchus and the left lower bronchus elevated to 8 segments on the left. Following that, bronchoscope was moved to the right middle lobe and the right middle lobe bronchoalveolar lavage was done. A total of 60 cc of saline was infused and 20 cc was aspirated. Aspirate was nonbloody The flexible bronchoscope was removed. The bronchoalveolar lavage will be sent for microbial culture analysis. No complications. The patient will be kept on Trelegy Ellipta and DuoNeb nebulizer treatments 4 times a day and the patient will be also given a prednisone burst taper pending the results of the bronchioloalveolar lavage collected from the right middle lobe.
[2024-07-18 22:02] LABS: Appearance,BF Cloudy (Clear)
== END ==
LOC: ORWHC2ENDO 10:16
PROVIDERS: ATTEND Internal Medicine Critical Care Medicine
DX: J44.9 Chronic obstructive pulmonary disease, unspecified (principal); E78.5 Hyperlipidemia, unspecified; E11.9 Type 2 diabetes mellitus without complications; K21.9 Gastro-esophageal reflux disease without esophagitis; Z86.19 Personal history of other infectious and parasitic diseases; Z87.891 Personal history of nicotine dependence; Z79.899 Other long term (current) drug therapy
CPT/HCPCS: 89050; 87070; 87205; 87116; 87102; 87206; 31624; J2704; J2003; J2919

== ENCOUNTER → 2024-10-09 | Outpatient (CLI) | payer OTHER ==
[2024-10-09 22:02] LABS: Thyroid Peroxidase Antibodies 21.2 U/mL (0.0-33.0)
[2024-10-09 22:04] LABS: T4, Free (Free Thyroxine) 1.22 ng/dL (0.80-1.80)
== END | disposition home or self-care (01) ==
LOC: LABWHC1 15:43
PROVIDERS: ATTEND Ophthalmology
DX: H20.013 Primary iridocyclitis, bilateral (principal)
CPT/HCPCS: 36415; 84439; 84443; 84480; 86376

== ENCOUNTER → 2024-10-24 | Outpatient (CLI) | payer OTHER ==
[2024-10-24 15:28] LABS: Basophils # (A) 0.02 X 10*3/uL (0.00-0.10); Basophils % (A) 0.7 %; Eosinophils # (A) 0.05 X 10*3/uL (0.04-0.35); Eosinophils % (A) 1.8 %; HCT 52.8 % (37.2-46.3); HGB 17.4 g/dL (12.0-15.0); Immature Grans, Automated 0.40 %; Lymphocytes # (A) 0.50 X 10*3/uL (0.90-5.00); Lymphocytes % (A) 17.9 %; MCH 29.6 pg (27.0-32.0); MCHC 33.0 g/dL (32.0-37.0); MCV 89.8 FL (80.0-97.0); Monocytes # (A) 0.41 X 10*3/uL (0.20-1.00); Monocytes % (A) 14.6 %; NRBC Per 100 WBC 0 X 10*3/uL (0.00-0.01); Neutrophils # (A) 1.81 X 10*3/uL (1.80-7.70); Neutrophils % (A) 64.6 %; Platelet Count 233 X 10*3/uL (140-440); RBC 5.88 X 10*6/uL (4.10-5.20); RDW 14.2 % (11.5-14.5); WBC 2.80 X 10*3/uL (4.50-10.00)
[2024-10-24 15:33] LABS: BUN/Creat Ratio 15.00 Ratio (12.00-20.00); Blood Urea Nitrogen 19.5 mg/dL (9.0-27.0); Chloride 114 mmol/L (96-109); Glucose 98 mg/dL (70-110); Potassium 4.3 mmol/L (3.5-5.5); Sodium 147 mmol/L (135-145)
[2024-10-24 15:34] LABS: ALT 37 U/L (8-44); AST 41 U/L (13-35); Albumin 4.3 g/dL (3.8-4.9); Albumin/Globulin Ratio 1.72 Ratio (1.60-3.17); Alkaline Phosphatase 62 U/L (41-126); Anion Gap 11.50 mmol/L (4.00-12.00); Calcium 9.3 mg/dL (8.7-10.3); Carbon Dioxide 21.5 mmol/L (21.6-31.8); Creatine Kinase 339 U/L (26-186); Globulin 2.5 g/dL (1.6-3.3); Magnesium 1.7 mg/dL (1.5-2.4); Total Protein 6.8 g/dL (6.2-8.2)
== END | disposition home or self-care (01) ==
LOC: LABWHC1 10:10
PROVIDERS: ATTEND Family Medicine
DX: H57.89 Other specified disorders of eye and adnexa (principal); R25.2 Cramp and spasm
CPT/HCPCS: 36415; 80053; 82550; 83735; 84443; 85025; 85652; 86038